=== PATIENT | male | born 1960 | race Caucasian/White ===

== ENCOUNTER → 2016-07-20 | Outpatient (CLI) | payer BC ==
[~2016-07-20] MED LIST: /LINE60TA OR; /MUPINAS; ACET-654 PO; ACET50TA PO; BIMA01SOL OU; CEFT500T OR; COLA100C2 OR; CYMBALTA PO; DICY10CA PO; DOXY100T OR; EMLA2.5C TOP; FISHCAP PO; GABA-279 PO; GABA300C2 PO; GABA300C3 PO; GABAPENTIN PO; HYDR-3713 PO; IBUP600T PO; IBUP800T OR; IBUPPOW25 PO; JANU100T PO; LANTUS SC; LIDO5DIS EX; LYRI150C OR; METO10TA2 PO; MULTIVIT PO; MUPI2OI TOP; NEUR100C PO; NEUR600T PO; NORT10SO PO; No Historical Meds; OMEP20TA7 OR; OXYC10TA97 OR; PENN1.5S2 TOP; PERC5TAB6 PO; PERC5TAB8 PO; RIFA300C3 PO; TRAM50TA2 OR; TYLE500T53 OR; TYLE650T30 PO; VICO5TAB OR; ZONE25CA5 PO
--- NOTE | 2016-07-21 03:16 | REP ---
Clinical: Primary osteoarthritis with hip pain. Technique: Neutral and frog lateral views of the right hip. Comparison: 07/18/2014. Findings: Findings include joint space narrowing with increase sclerosis the acetabulum and subtle spurring along the acetabular rim. Cortical irregularity is also identified involving the greater trochanter. The femoral head and neck cortex appears relatively smooth and normal. No abnormal erosions appreciated. No subchondral cystic changes are appreciated or periarticular calcifications are identified. Impression: Mild arthritic changes by radiographic evaluation similar to prior examination. Signed by Lawrence Munguia MD 07/21/2016 03:08 A
== END ==
LOC: M CLY 11:17
PROVIDERS: ATTEND Family Medicine
DX: M16.11 Unilateral primary osteoarthritis, right hip (principal)

== ENCOUNTER → 2016-09-29 | Outpatient (CLI) | payer BC ==
[~2016-09-29] MED LIST changes: +GABA-282 PO; -GABA300C3 PO
--- NOTE | 2016-10-04 01:56 | ECWPNPC ---
PATIENT NAME: KHANH GEORGE : 1960 GENDER: MALE VISIT DATE: 09/29/2016 DISCHARGE DATE: 09/29/16 1117 VISIT LOCKED DATE TIME: PHYSICIAN: CRISTAL KOWALSKI PHYSICIAN PAGER NO: [phone] RESOURCE: CRISTAL KOWALSKI REASON FOR APPOINTMENT 1. FEET, KNEES HISTORY OF PRESENT ILLNESS HISTORY OF PRESENT ILLNESS: PAIN THE PATIENT DESCRIBES THE PAIN... FALL RISK SCREENING: SCREENING :NO FALLS IN THE PAST YEAR TODAY'S VISIT: NOTES: IS HAVING INCREASED PAIN IN RIGHT HIP. HAS SEEN DR GRAHAM AT [facility] AND ALSO DR. HUERTA WHO DID START HIM IN PT WHICH HE COULD NOT DO THIS INCREASED THE PAIN. DCS WORKING WELL AND LE NEUROPATHY IS UNDER CONTROL. THEY ARE NOT ABLE TO CAPTURE THE HIP WITH THE STIMULATOR. RATES PAIN TODAY 4/10. DESCRIBES PAIN ACHING. PAIN IS CENTERED IN RIGHT BUTTUCK, HIP AND KNEE . CURRENT MEDICATIONS TAKING BACTROBAN 2 % CREAM 1 APPLICATION TO AFFECTED AREA EXTERNALLY THREE TIMES A DAY TAKING HIBICLENS 4 % LIQUID TOPICAL EXTERNALLY DAILY TAKING LUMIGAN 0.01 % SOLUTION INSTILL 1 DROP IN EACH EYE AT NIGHT TIME OPHTHALMIC TAKING HYDROCHLOROTHIAZIDE 25 MG TABLET 1 TABLET ORALLY Q 3 DAYS TAKING TRAMADOL HCL 50 MG TABLET 1 -2 TABLET NEEDED ORALLY Q4H PRN MDD6 TAKING MOTRIN IB 200 MG TABLET 3 TABS ORALLY EVERY 6 HRS PRN TAKING TANZEUM 30 MG PEN-INJECTOR 1 INJECTION SUBCUTANEOUS WEEKLY TAKING ONETOUCH ULTRA II TEST STRIPS STRIP DIRECTED IN VITRO TWICE DAILY TAKING LANTUS SOLOSTAR 100 UNIT/ML SOLUTION 66 UNITS SUBCUTANEOUS BEDTIME TAKING LANTUS SOLO STAR PEN NEEDLES 4MM NEEDLES 32 G 1 SUBCUTANEOUS ONCE A DAY TAKING PERCOCET 325-7.5 MG TABLET 1 TABLET ORALLY EVERY 4 HRS PRN PAIN MDD=6 TAKING LIDOCAINE 5 % OINTMENT 1 APPLICATION TO AFFECTED AREA NEEDED EXTERNALLY APPLY Q 4-6 HRS PRN PAIN APPLY TO PAINFUL AREA OF FEET/KNEE TAKING ICY HOT 5 % PAD 1 PAD TO AFFECTED AREA NEEDED EXTERNALLY ONCE A DAY NOT-TAKING RANITIDINE HCL 150 MG TABLET 1 TABLET AT BEDTIME ORALLY BID NOT-TAKING LIDOCAINE 4 % CREAM DIRECTED EXTERNALLY APPLY TO BOTH FEET/KNEE NEEDED DISCONTINUED BACTRIM DS 800-160 MG TABLET 1 TABLET ORALLY TWICE A DAY MEDICATION LIST REVIEWED AND RECONCILED WITH THE PATIENT PAST MEDICAL HISTORY DIABETES MELLITUS KIDNEY STONES GLAUCOMA PNEUMONIA SHOT GIVEN 05-03-2011 WHILE INPATIENT @ [facility] 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 NO . CHILLS NO . FEVER NO . INFECTION: DO YOU HAVE NEW INFECTIONS? NO . DO YOU HAVE HISTORY OF MRSA? YES, SIX YRS AGO IN HIS KIDNEY, SINCE HAS HAD IT ON HEAD AND FACE. NONE NOW . MUSCULOSKELETAL: ANY NEW PATTERNS OF PAIN OR NUMBNESS? NO . GASTROENTEROLOGY: ANY NEW CHANGE IN BOWEL CONTROL? NO . GENITOURINARY: ANY NEW CHANGE IN BLADDER CONTROL? NO . IS THERE A CHANCE YOU COULD BE ? NO . HEMATOLOGY/LYMPH: DO YOU TAKE ANY BLOOD THINNERS? (FOR EXAMPLE- COUMADIN, PLAVIX, AGGRENOX, PLATEL, PRADAXA, OR XARELTO) NO . WHEN WAS YOUR LAST DOSE? DATE: TIME: . NEUROLOGY: HAVE YOU FALLEN IN THE PAST 6 MONTHS? YES, APPROX MID JUL. HIP GAVE OUT WHILE HE WAS WALKING--SAW DR. FIGUEROA THE NEXT DAY. BRUISES AND ABRASION . ANY NEW EXTREMITY NUMBNESS OR WEAKNESS? NO . CARDIOLOGY: DO YOU HAVE A PACEMAKER OR DEFIBRILLATOR? NO . RESPIRATORY: HAVE YOU BEEN SICK IN THE PAST WEEK? NO . FEVER NO . FLU LIKE SYMPTOMS? NO . COUGH NO . INTEGUMENTARY: DO YOU HAVE ANY RASHES OR OPEN SORES? NO . ALLERGIC/IMMUNO: ARE YOU ALLERGIC TO SHELLFISH OR IV DYE? NO . ANY NEW ALLERGIES? NO . PSYCHIATRIC: DO YOU HAVE THOUGHTS OF HURTING YOURSELF OR SOMEONE ELSE? NO . ARE YOU ABUSED, NEGLECTED, OR IN AN UNSAFE ENVIRONMENT? NO . ENDOCRINOLOGY: ARE YOU DIABETIC? YES, FSBS 115 09/28/16 . OTHER: DO YOU NEED ANY PRESCRIPTIONS? YES . IF YES, PLEASE LIST: ____TRAMADOL . ANY NEW PROBLEMS WITH YOUR MEDICATIONS? NO . WHEN DID YOU LAST EAT? ____ . WHEN DID YOU LAST DRINK? ____ . WHAT DID YOU LAST DRINK? ____ . NAME OF PERSON DRIVING YOU HOME? ____ . DO YOU HAVE ANY OTHER QUESTIONS OR CONCERNS ARTHRITIS IS WORSE IN RIGHT HIM AND HE NEEDS A TOTAL HIP DONE. WOULD LIKE TO DISCUSS LIDODERM PATCH . SKIN: DO YOU HAVE ANY RASHES OR OPEN SORES? NO MRSA OUTBREAKS IN THE LAST SEVERAL MONTHS. IS USING REGULAR APPLICATIONS OF PHISODERM. . REVIEWED BY: PROVIDER: CRISTAL PEREZ . VITAL SIGNS WT 292.6 LBS, HT 6'1", BMI 38.60 INDEX, BP 158/81 MM HG, HR 82 /MIN, RR 18 /MIN, TEMP 97.1 F, OXYGEN SAT % 97%, NA INITIALS SC 10:44, REVIEWED BY: AD. EXAMINATION GENERAL EXAMINATION: PSYCHALERT , ORIENTED X 3 , APPROPRIATE MOOD AND AFFECT . FACE:FACIAL LESIONS DRY, HEALED. LUNGS:CLEAR TO AUSCULTATION BILATERALLY. HEART:HEART RATE REGULAR. MUSCULOSKELETAL:CAN FLEX BOTH FEET AND TOES. GAIT STEPPING IN NATURE. MINIMAL TENDERNESS WITH PALPATION OVER RIGHT KNEE. POINT TENDERNESS OVER THE RIGHT TROCANTER AND SACRUM.. ASSESSMENTS TYPE 2 DIABETES MELLITUS WITH DIABETIC POLYNEUROPATHY - E11.42 (PRIMARY) PRIMARY OSTEOARTHRITIS OF RIGHT HIP - M16.11 TREATMENT TYPE 2 DIABETES MELLITUS WITH DIABETIC POLYNEUROPATHY REFILL TRAMADOL HCL TABLET, 50 MG, 1 -2 TABLET NEEDED, ORALLY, Q4H PRN MDD6, 30 DAY(S), 180, REFILLS 3 START LIDOCAINE PATCH, 5 %, DIRECTED, EXTERNALLY, APPLEY 2 PATCHES TO HIP OR BACK ON 12 HOURS OFF 12 HOURS, 30 DAY(S), 60, REFILLS 2 CLINICAL NOTES: ISTOP REGISTRY REVIEWED AND DEMNOSTRATES COMPLLIANCE. BRINGS IN MEDICATIONS WHICH IS APPROPRIATE FOR WHAT WAS DISPENSED. RECENT URINE TOXICOLOGY REVIEWED. NO UNAUTHORIZED MEDICATIONS. NO ILLICIT SUBSTANCES AND PRESCRIBED MEDICATIONS WERE PRESENT. PROCEDURE CODES FA211 ESTABILISHED PATIENT [facility] CHARGE DISPOSITION & COMMUNICATION FOLLOW UP 3 MONTHS ELECTRONICALLY SIGNED BY CARLO HA ON 10/03/2016 AT 01:38 PM EDT DISCLAIMER : THIS IS A VISIT SUMMARY EXTRACTED FROM THE [employer] CHART. IT IS NOT A COPY OF THE [employer] PROGRESS NOTE. MTDD
== END ==
LOC: M PAIN 10:20
PROVIDERS: ATTEND Nurse Practitioner Family
DX: E11.42 Type 2 diabetes mellitus with diabetic polyneuropathy (principal); M16.11 Unilateral primary osteoarthritis, right hip; Z79.891 Long term (current) use of opiate analgesic; Z79.899 Other long term (current) drug therapy; Z79.2 Long term (current) use of antibiotics; Z79.4 Long term (current) use of insulin; I10 Essential (primary) hypertension; Z86.14 Personal history of Methicillin resistant Staphylococcus aureus infection; Z88.8 Allergy status to other drugs, medicaments and biological substances; Z88.5 Allergy status to narcotic agent

== ENCOUNTER → 2016-10-20 | Outpatient (REF) | payer BC ==
[2016-10-20 18:07] LABS: ALBUMIN 3.7 GM/DL (3.2-5.2); ALBUMIN/GLOBULIN RATIO 0.97 (1.00-1.93); ALKALINE PHOSPHATASE 94 U/L (45-117); ALT/SGPT 68 U/L (12-78); ANION GAP 5 MEQ/L (8-16); AST/SGOT 70 U/L (15-37); BILIRUBIN,TOTAL 0.5 MG/DL (0.2-1.0); BLOOD UREA NITROGEN 14 MG/DL (7-18); CARBON DIOXIDE LEVEL 31 MEQ/L (21-32); CHLORIDE LEVEL 103 MEQ/L (98-107); CHOLESTEROL LEVEL 143 MG/DL (<200); CREATININE FOR GFR 0.97 MG/DL (0.70-1.30); GLOMERULAR FILTRATION RATE > 60.0 (>56); GLUCOSE, FASTING 146 MG/DL (70-105); POTASSIUM SERUM 4.6 MEQ/L (3.5-5.1); SODIUM LEVEL 139 MEQ/L (136-145); TOTAL PROTEIN 7.5 GM/DL (6.4-8.2); TRIGLYCERIDES LEVEL 190 MG/DL (<150)
== END ==
LOC: M SFHCCLAY 10:28
PROVIDERS: ATTEND Family Medicine
DX: E11.42 Type 2 diabetes mellitus with diabetic polyneuropathy (principal)

== ENCOUNTER → 2016-11-09 | Outpatient (CLI) | payer BC ==
--- NOTE | 2016-11-30 00:48 | ECWPNPC ---
PATIENT NAME: KHANH GEORGE : 1960 GENDER: MALE VISIT DATE: 11/09/2016 DISCHARGE DATE: 11/09/16 1236 VISIT LOCKED DATE TIME: PHYSICIAN: CRISTAL KOWALSKI PHYSICIAN PAGER NO: [phone] RESOURCE: CRISTAL KOWALSKI REASON FOR APPOINTMENT 1. MEDS HISTORY OF PRESENT ILLNESS HISTORY OF PRESENT ILLNESS: PAIN THE PATIENT DESCRIBES THE PAIN... FALL RISK SCREENING: SCREENING :NO FALLS IN THE PAST YEAR TODAY'S VISIT: NOTES: RATES PAIN TODAY 7/10. DESCRIBES PAIN CONSTANT, ACHING, BURNING AND SHARP. HAD FALL YESTERDAY IN LIVING ROOM - STOOD UP AND "NOTHING WORKED" . NOTES INTENSE PAIN IN HIP WHEN MOVING TO STANDING POSITION. IS CURRENTLY IN PHYSICAL THERAPY AND IS FOLLOWING UP WITH DR CASTRO AT [facility]. 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 NOTES NEUROPATHY IS DOING "GREAT" AND STIM DOING WELL. . CURRENT MEDICATIONS TAKING BACTROBAN 2 % CREAM 1 APPLICATION TO AFFECTED AREA EXTERNALLY THREE TIMES A DAY TAKING HYDROCHLOROTHIAZIDE 25 MG TABLET 1 TABLET ORALLY Q 3 DAYS TAKING TANZEUM 30 MG PEN-INJECTOR 1 INJECTION SUBCUTANEOUS WEEKLY TAKING [employer] ULTRA II TEST STRIPS STRIP DIRECTED IN VITRO TWICE DAILY TAKING LANTUS SOLOSTAR 100 UNIT/ML SOLUTION 68 UNITS SUBCUTANEOUS BEDTIME TAKING LANTUS SOLO STAR PEN NEEDLES 4MM NEEDLES 32 G 1 SUBCUTANEOUS ONCE A DAY TAKING LIDOCAINE 5 % OINTMENT 1 APPLICATION TO AFFECTED AREA NEEDED EXTERNALLY APPLY Q 4-6 HRS PRN PAIN APPLY TO PAINFUL AREA OF FEET/KNEE TAKING ICY HOT 5 % PAD 1 PAD TO AFFECTED AREA NEEDED EXTERNALLY ONCE A DAY TAKING TRAMADOL HCL 50 MG TABLET 1 -2 TABLET NEEDED ORALLY Q4H PRN MDD6 TAKING HIBICLENS 4 % LIQUID TOPICAL EXTERNALLY DAILY TAKING LUMIGAN 0.01 % SOLUTION INSTILL 1 DROP IN EACH EYE AT NIGHT TIME OPHTHALMIC TAKING MOTRIN IB 200 MG TABLET 3 TABS ORALLY EVERY 6 HRS PRN TAKING PERCOCET 325-7.5 MG TABLET 1 TABLET ORALLY EVERY 4 HRS PRN PAIN MDD=6 TAKING LIDOCAINE 5 % PATCH DIRECTED EXTERNALLY APPLEY 2 PATCHES TO HIP OR BACK ON 12 HOURS OFF 12 HOURS TAKING [employer] ULTRA 2 W/DEVICE KIT DIRECTED NOT-TAKING BACTRIM DS 800-160 TABLET 1 TABLET ORALLY TWICE A DAY UNKNOWN RANITIDINE HCL 150 MG TABLET 1 TABLET AT BEDTIME ORALLY BID UNKNOWN LIDOCAINE 4 % CREAM DIRECTED EXTERNALLY APPLY TO BOTH FEET/KNEE NEEDED MEDICATION LIST REVIEWED AND RECONCILED WITH THE PATIENT PAST MEDICAL HISTORY DIABETES MELLITUS KIDNEY STONES GLAUCOMA PNEUMONIA SHOT GIVEN 05-03-2011 WHILE INPATIENT @ [facility] 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 YES, NEEDS RIGHT HIP REPLACEMENT-YET TO BE SCHEDULED . CHILLS NO . FEVER NO . INFECTION: DO YOU HAVE NEW INFECTIONS? NO . DO YOU HAVE HISTORY OF MRSA? YES, X 6 YEARS ON FACE AND NECK . MUSCULOSKELETAL: ANY NEW PATTERNS OF PAIN OR NUMBNESS? YES, RIGHT HIP--INCREASED PAIN SINCE MON. . GASTROENTEROLOGY: ANY NEW CHANGE IN BOWEL CONTROL? NO . GENITOURINARY: ANY NEW CHANGE IN BLADDER CONTROL? NO . IS THERE A CHANCE YOU COULD BE ? NO . HEMATOLOGY/LYMPH: DO YOU TAKE ANY BLOOD THINNERS? (FOR EXAMPLE- COUMADIN, PLAVIX, AGGRENOX, PLATEL, PRADAXA, OR XARELTO) NO . WHEN WAS YOUR LAST DOSE? DATE: TIME: . NEUROLOGY: HAVE YOU FALLEN IN THE PAST 6 MONTHS? YES, YEST. WENT TO TAKE A STEP AND WENT DOWN. JAMMED RIGHT KNEE ON FLOOR. DID NOT GET SEEN. . ANY NEW EXTREMITY NUMBNESS OR WEAKNESS? NO . CARDIOLOGY: DO YOU HAVE A PACEMAKER OR DEFIBRILLATOR? NO . RESPIRATORY: HAVE YOU BEEN SICK IN THE PAST WEEK? NO . FEVER NO . FLU LIKE SYMPTOMS? NO . COUGH NO . INTEGUMENTARY: DO YOU HAVE ANY RASHES OR OPEN SORES? YES, RASH ON BACK OF NECK RIGHT SIDE - OUTBREAK OF MRSA WITH DRAINAGE . ALLERGIC/IMMUNO: ARE YOU ALLERGIC TO SHELLFISH OR IV DYE? NO . ANY NEW ALLERGIES? NO . PSYCHIATRIC: DO YOU HAVE THOUGHTS OF HURTING YOURSELF OR SOMEONE ELSE? NO . ARE YOU ABUSED, NEGLECTED, OR IN AN UNSAFE ENVIRONMENT? NO . ENDOCRINOLOGY: ARE YOU DIABETIC? YES . OTHER: DO YOU NEED ANY PRESCRIPTIONS? YES, PERCOCET . IF YES, PLEASE LIST: ____ . ANY NEW PROBLEMS WITH YOUR MEDICATIONS? NO . WHEN DID YOU LAST EAT? ____ . WHEN DID YOU LAST DRINK? ____ . WHAT DID YOU LAST DRINK? ____ . NAME OF PERSON DRIVING YOU HOME? ____ . DO YOU HAVE ANY OTHER QUESTIONS OR CONCERNS NO . REVIEWED BY: PROVIDER: CRISTAL PEREZ . VITAL SIGNS WT 293.6 LBS, HT 6'1", BMI 38.73 INDEX, BP 137/96 MM HG, HR 90 /MIN, RR 18 /MIN, TEMP 96.9 F, OXYGEN SAT % 96%, NA INITIALS TL 1151, REVIEWED BY: AD. EXAMINATION GENERAL EXAMINATION: GENERAL APPEARANCE:APPEARS EXTREMELY UNCOMFORTABLE WHEN MOVING TO STANDING POSITION OR WITH ATTEMPT TO WALK. PSYCHAPPROPRIATE MOOD AND AFFECT . NECK:NO LYMPHADENOPATHY, SUPPLE, NO THYROMEGALLY, NO JVD OR BRUITS. LUNGS:CLEAR TO AUSCULTATION BILATERALLY, NO WHEEZES, RHONCHI, RALES. HEART:NO MURMURS, REGULAR RATE AND RHYTHM. BACK:DORSAL COLMN STIM INCISIONS OVER LUMBAR SPINE AND FLANK, CLEAN, DRY, NONTENDER. JOINTS:BILATERAL, KNEE , PAIN , SWELLING . ASSESSMENTS KNEE PAIN, RIGHT - M25.561 (PRIMARY) NEUROPATHY - G62.9 CHRONIC PRESCRIPTION OPIATE USE - Z79.899 HIP PAIN, RIGHT - M25.551 TREATMENT KNEE PAIN, RIGHT NOTES: WILL CONSIDER INCREASE ON OXYCODONE TO 10/325 FOR SHORT PERIOD WHILE AWAITING HIP SURGERY. CALL WHEN SCRIPTS NEEDED. CLINICAL NOTES: ISTOP REGISTRY REVIEWED AND DEMNOSTRATES COMPLLIANCE. BRINGS IN MEDICATIONS WHICH IS APPROPRIATE FOR WHAT WAS DISPENSED. RECENT URINE TOXICOLOGY REVIEWED. NO UNAUTHORIZED MEDICATIONS. NO ILLICIT SUBSTANCES AND PRESCRIBED MEDICATIONS WERE PRESENT. PROCEDURE CODES FA211 ESTABILISHED PATIENT [facility] CHARGE DISPOSITION & COMMUNICATION FOLLOW UP 2 MONTHS ELECTRONICALLY SIGNED BY CARLO HA ON 11/29/2016 AT 08:40 AM EDT DISCLAIMER : THIS IS A VISIT SUMMARY EXTRACTED FROM THE [employer] CHART. IT IS NOT A COPY OF THE [employer] PROGRESS NOTE. EVAN
== END ==
LOC: M PAIN 11:40
PROVIDERS: ATTEND Nurse Practitioner Family
DX: G89.29 Other chronic pain (principal); M25.561 Pain in right knee; G62.9 Polyneuropathy, unspecified; M25.551 Pain in right hip; E11.42 Type 2 diabetes mellitus with diabetic polyneuropathy; M16.11 Unilateral primary osteoarthritis, right hip; Z79.4 Long term (current) use of insulin; Z79.1 Long term (current) use of non-steroidal anti-inflammatories (NSAID); Z79.891 Long term (current) use of opiate analgesic; Z79.899 Other long term (current) drug therapy; Z88.5 Allergy status to narcotic agent; Z88.8 Allergy status to other drugs, medicaments and biological substances; Z86.14 Personal history of Methicillin resistant Staphylococcus aureus infection

== ENCOUNTER → 2017-01-31 | Outpatient (REF) | payer BC ==
[~2017-01-31] MED LIST changes: +PERC5TAB12 PO; -PERC5TAB6 PO
[2017-01-31 12:45] LABS: ANION GAP 8 MEQ/L (8-16); BLOOD UREA NITROGEN 13 MG/DL (7-18); CALCIUM LEVEL 9.4 MG/DL (8.5-10.1); CARBON DIOXIDE LEVEL 30 MEQ/L (21-32); CHLORIDE LEVEL 105 MEQ/L (98-107); CREATININE FOR GFR 0.85 MG/DL (0.70-1.30); GLOMERULAR FILTRATION RATE > 60.0 (>56); GLUCOSE, FASTING 200 MG/DL (70-105); POTASSIUM SERUM 4.8 MEQ/L (3.5-5.1); SODIUM LEVEL 143 MEQ/L (136-145)
== END ==
LOC: M SFHCCLAY 09:03
PROVIDERS: ATTEND Family Medicine
DX: E11.42 Type 2 diabetes mellitus with diabetic polyneuropathy (principal)

== ENCOUNTER → 2017-02-03 | Outpatient (CLI) | payer BC ==
--- NOTE | 2017-02-24 01:31 | ECWPNPC ---
PATIENT NAME: KHANH GEORGE : 1960 GENDER: MALE VISIT DATE: 02/03/2017 DISCHARGE DATE: 02/03/17 1537 VISIT LOCKED DATE TIME: PHYSICIAN: CRISTAL KOWALSKI PHYSICIAN PAGER NO: [phone] RESOURCE: CRISTAL KOWALSKI REASON FOR APPOINTMENT 1. 3 MONTH F/UP HISTORY OF PRESENT ILLNESS HISTORY OF PRESENT ILLNESS: PAIN THE PATIENT DESCRIBES THE PAIN... FALL RISK SCREENING: SCREENING :NO FALLS IN THE PAST YEAR TODAY'S VISIT: NOTES: RATES PAIN TODAY 5/10. WAS UNABLE TO MOVE FORWARD WITH HIP SURGERY HASD OUTBREAK OF MRSA.MEDS ARE HELPFUL BUT DOES NOT LIKE HOW THEY MAKE HIM FEEL. DCS WORKING WELL. LE NEUROPATHY IS UNDER CONTTROL WITH STIM. DOES NEED LIDO AND COLD WATER BATHS AND THIS HELPS. . CURRENT MEDICATIONS TAKING PERCOCET 10-325 MG TABLET 1 -2 TABLETS ORALLY EVERY 6 HRS PRN PAIN MDD=6 TAKING BACTROBAN 2 % CREAM 1 APPLICATION TO AFFECTED AREA EXTERNALLY THREE TIMES A DAY TAKING HIBICLENS 4 % LIQUID TOPICAL EXTERNALLY DAILY TAKING LUMIGAN 0.01 % SOLUTION INSTILL 1 DROP IN EACH EYE AT NIGHT TIME OPHTHALMIC TAKING MOTRIN IB 200 MG TABLET 3 TABS ORALLY EVERY 6 HRS PRN TAKING LIDOCAINE 5 % OINTMENT 1 APPLICATION TO AFFECTED AREA NEEDED EXTERNALLY APPLY Q 4-6 HRS PRN PAIN APPLY TO PAINFUL AREA OF FEET/KNEE TAKING ICY HOT 5 % PAD 1 PAD TO AFFECTED AREA NEEDED EXTERNALLY ONCE A DAY TAKING TRAMADOL HCL 50 MG TABLET 1 -2 TABLET NEEDED ORALLY Q4H PRN MDD6 TAKING LIDOCAINE 5 % PATCH DIRECTED EXTERNALLY APPLEY 2 PATCHES TO HIP OR BACK ON 12 HOURS OFF 12 HOURS TAKING [employer] Technologies[employer] ULTRA II TEST STRIPS STRIP DIRECTED IN VITRO TWICE DAILY TAKING LANTUS SOLOSTAR 100 UNIT/ML SOLUTION 68 UNITS, QHS, 32 UNITS QAM SUBCUTANEOUS DIRECTED TAKING LANTUS SOLO STAR PEN NEEDLES 4MM NEEDLES 32 G 1 SUBCUTANEOUS DAILY TAKING [employer]ds[employer] TechnologiesTOUCH ULTRA 2 W/DEVICE KIT DIRECTED E11.42 TAKING JANUVIA 100 MG TABLET 1 TABLET ORALLY ONCE A DAY NOT-TAKING HYDROCHLOROTHIAZIDE 25 MG TABLET 1 TABLET ORALLY Q 3 DAYS NOT-TAKING TANZEUM 30 MG PEN-INJECTOR 1 INJECTION SUBCUTANEOUS WEEKLY NOT-TAKING BACTRIM DS 800-160 TABLET 1 TABLET ORALLY TWICE A DAY UNKNOWN RANITIDINE HCL 150 MG TABLET 1 TABLET AT BEDTIME ORALLY BID MEDICATION LIST REVIEWED AND RECONCILED WITH THE PATIENT PAST MEDICAL HISTORY DIABETES MELLITUS KIDNEY STONES GLAUCOMA PNEUMONIA SHOT GIVEN 05-03-2011 WHILE INPATIENT @ [facility] 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 NEED FOR PROPHYLACTIC VACCINATION AND INOCULATION, INFLUENZA ERECTILE DYSFUNCTION / IMPOTENCE KIDNEY STONE GROSS HEMATURIA 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 ATYPICAL CHEST PAIN ABDOMINAL PAIN DIABETIC TOE ULCER OSTEOARTHRITIS OF HIP OSTEOARTHRITIS OF RIGHT HIP MRSA COLONIZATION FURUNCULOSIS DRY MOUTH SIDE EFFECT WITH INVOKANA CHILDHOOD POLIO AGE APPROX 18 MOS ALLERGIES MORPHINE SULFATE: NAUSEA/VOMITING: SIDE EFFECTS METFORMIN: HICCUPS: SIDE EFFECTS SOCIAL HISTORY GENERAL: TOBACCO USE ARE YOU A:NONSMOKER NEVER SMOKER ADDITIONAL FINDINGS: TOBACCO USER NONE ADDITIONAL FINDINGS: TOBACCO NON-USER NO VAPORNO E-CIGARETTENO LUNG CANCER SCREENING SMOKING STATUS:NON SMOKER BMI CARE GOAL FOLLOW-UP ABOVE NORMAL BMI FOLLOW-UPDIETARY MANAGEMENT EDUCATION, GUIDANCE, AND COUNSELING ALCOHOL SCREENING DID YOU HAVE A DRINK CONTAINING ALCOHOL IN THE PAST YEAR?YES HOW OFTEN DID YOU HAVE SIX OR MORE DRINKS ON ONE OCCASION IN THE PAST YEAR?NEVER (0 POINTS) HOW MANY DRINKS DID YOU HAVE ON A TYPICAL DAY WHEN YOU WERE DRINKING IN THE PAST YEAR?1 OR 2 (0 POINTS) HOW OFTEN DID YOU HAVE A DRINK CONTAINING ALCOHOL IN THE PAST YEAR?MONTHLY OR LESS (1 POINT) POINTS1 INTERPRETATIONNEGATIVE RECREATIONAL DRUG USE DRUG USE?NO CAFFEINE CAFFEINE USE?YES SEXUAL HX HAD SEX IN THE LAST 12 MONTHS (VAGINAL, ORAL, OR ANAL)?YES WITHWOMEN ONLY PREVENTION STRATEGIES DISCUSSED:OTHER USE PROTECTION?NO HAVE YOU EVER HAD AN STD?NO HIV / HEP-C SCREENING HIV TEST OFFERED TO PATIENT:YES DATE OFFERED:01/31/2017 TEST ACCEPTED:NO HEP-C TEST OFFERED TO PATIENT:YES DATE OFFERED:01/31/2017 REASON:PATIENT DECLINED TEST ACCEPTED:NO REASON:PATIENT DECLINED TESTED 2013 OCCUPATION: [employer] . DIET: CARBOHYDRATE CONTROLLED. MARITAL STATUS: . LANGUAGE LUXEMBOURGISH. LEARNING BARRIERS / SPECIAL NEEDS CHANGE FROM LAST VISIT?NO 01/31/2017 BARRIERS TO LEARNING?NO HEARING IMPAIRED?NO VISION IMPAIRED?YES COGNITIVELY IMPAIRED?NO :CORRECTIVE LENSES READING READINESS TO LEARN?YES LEARNING PREFERENCES?NO LEARNING CAPABILITIES PRESENT?YES EMOTIONAL BARRIERS?NO SPECIAL DEVICES?NO DIRECTOR STRATEGIC PLANNING NEEDED?NO NEW PATIENT PAIN DIARY TODAY'S VISIT NOTES, FROM 0-10, WHAT LEVEL IS YOUR PAIN TODAY? 0. PAIN CLINIC PFS, CLERGY, PUBLIC HEALTH REFERRALS PFS REFERRAL NEEDED?NO CLERGY REFERRAL NEEDED?NO PUBLIC HEALTH REFERRAL NEEDED?NO HAS THE PATIENT BEEN EDUCATED REGARDING HIS/HER PLAN OF CARE?YES HAS THE PATIENT BEEN EDUCATED REGARDING PAIN, THE RISK FOR PAIN, THE IMPORTANCE OF EFFECTIVE PAIN MANAGEMENT, AND THE PAIN ASSESSMENT PROCESS?YES ADVANCE DIRECTIVES HEALTH CARE PROXY?NO 01/31/2017 INFORMATION GIVEN WOULD YOU LIKE MORE INFORMATION?YES POWER OF EXTRUSION FORMER?NO DO YOU HAVE A DNR?NO WOULD YOU LIKE MORE INFORMATION?NO LIVING WILL?NO WOULD YOU LIKE MORE INFORMATION?NO WOULD YOU LIKE MORE INFORMATION?YES DOMESTIC VIOLENCE NONE. REVIEW OF SYSTEMS REVIEWED BY: PROVIDER: CRISTAL PEREZ . CONSTITUTIONAL: ANY CHANGE IN YOUR MEDICAL CONDITION? YES, BLOOD SUGARS HAVE BEEN HIGH . CHILLS NO . FEVER NO . INFECTION: DO YOU HAVE NEW INFECTIONS? NO . DO YOU HAVE HISTORY OF MRSA? YES . MUSCULOSKELETAL: ANY NEW PATTERNS OF PAIN OR NUMBNESS? NO . GASTROENTEROLOGY: ANY NEW CHANGE IN BOWEL CONTROL? NO . GENITOURINARY: ANY NEW CHANGE IN BLADDER CONTROL? NO . IS THERE A CHANCE YOU COULD BE ? NO . HEMATOLOGY/LYMPH: DO YOU TAKE ANY BLOOD THINNERS? (FOR EXAMPLE- COUMADIN, PLAVIX, AGGRENOX, PLATEL, PRADAXA, OR XARELTO) NO . WHEN WAS YOUR LAST DOSE? DATE: TIME: . NEUROLOGY: HAVE YOU FALLEN IN THE PAST 6 MONTHS? YES . ANY NEW EXTREMITY NUMBNESS OR WEAKNESS? NO . CARDIOLOGY: DO YOU HAVE A PACEMAKER OR DEFIBRILLATOR? NO . RESPIRATORY: HAVE YOU BEEN SICK IN THE PAST WEEK? NO . FEVER NO . FLU LIKE SYMPTOMS? NO . COUGH NO . INTEGUMENTARY: DO YOU HAVE ANY RASHES OR OPEN SORES? NO . ALLERGIC/IMMUNO: ARE YOU ALLERGIC TO SHELLFISH OR IV DYE? NO . ANY NEW ALLERGIES? NO . PSYCHIATRIC: DO YOU HAVE THOUGHTS OF HURTING YOURSELF OR SOMEONE ELSE? NO . ARE YOU ABUSED, NEGLECTED, OR IN AN UNSAFE ENVIRONMENT? NO . ENDOCRINOLOGY: ARE YOU DIABETIC? YES NOT UNDER CONTROL . OTHER: DO YOU NEED ANY PRESCRIPTIONS? YES . IF YES, PLEASE LIST: PERCOCET . ANY NEW PROBLEMS WITH YOUR MEDICATIONS? NO . WHEN DID YOU LAST EAT? ____ . WHEN DID YOU LAST DRINK? ____ . WHAT DID YOU LAST DRINK? ____ . NAME OF PERSON DRIVING YOU HOME? ____ . DO YOU HAVE ANY OTHER QUESTIONS OR CONCERNS NO . VITAL SIGNS WT 294.6 LBS, HT 6'1", BMI 38.86 INDEX, BP 166/89 MM HG, HR 83 /MIN, RR 18 /MIN, TEMP 98.2 F, OXYGEN SAT % 96%, REVIEWED BY: SUZE (DONE AT 1448). EXAMINATION GENERAL EXAMINATION: GENERAL APPEARANCE: UNCOMFORTABLE WHEN MOVING TO STANDING POSITION OR WITH ATTEMPT TO WALK. PSYCHAPPROPRIATE MOOD AND AFFECT . NECK:NO LYMPHADENOPATHY, SUPPLE, NO THYROMEGALLY, NO JVD OR BRUITS. LUNGS:CLEAR TO AUSCULTATION BILATERALLY, NO WHEEZES, RHONCHI, RALES. HEART:NO MURMURS, REGULAR RATE AND RHYTHM. BACK:DORSAL COLMN STIM INCISIONS OVER LUMBAR SPINE AND FLANK, CLEAN, DRY, NONTENDER. JOINTS:BILATERAL, KNEE , PAIN , SWELLING . ASSESSMENTS KNEE PAIN, RIGHT - M25.561 (PRIMARY) NEUROPATHY - G62.9 CHRONIC PRESCRIPTION OPIATE USE - Z79.899 HIP PAIN, RIGHT - M25.551 TREATMENT KNEE PAIN, RIGHT REFILL PERCOCET TABLET, 10-325 MG, 1 -2 TABLETS, ORALLY, EVERY 6 HRS PRN PAIN MDD=6, 30 DAY(S), 180, REFILLS 0 NOTES: UTOX TODAY. CLINICAL NOTES: ISTOP REGISTRY REVIEWED AND DEMNOSTRATES COMPLLIANCE. BRINGS IN MEDICATIONS WHICH IS APPROPRIATE FOR WHAT WAS DISPENSED. RECENT URINE TOXICOLOGY REVIEWED. NO UNAUTHORIZED MEDICATIONS. NO ILLICIT SUBSTANCES AND PRESCRIBED MEDICATIONS WERE PRESENT. PROCEDURE CODES FA211 ESTABILISHED PATIENT [facility] CHARGE DISPOSITION & COMMUNICATION FOLLOW UP 3 MONTHS (REASON: HIP/LEG PAIN) ELECTRONICALLY SIGNED BY CARLO HA ON 02/23/2017 AT 08:36 AM EDT DISCLAIMER : THIS IS A VISIT SUMMARY EXTRACTED FROM THE [employer] CHART. IT IS NOT A COPY OF THE [employer] PROGRESS NOTE. EVAN
== END ==
LOC: M PAIN 14:40
PROVIDERS: ATTEND Nurse Practitioner Family
DX: M25.561 Pain in right knee (principal); G62.9 Polyneuropathy, unspecified; M25.551 Pain in right hip; E11.42 Type 2 diabetes mellitus with diabetic polyneuropathy; M16.11 Unilateral primary osteoarthritis, right hip; I10 Essential (primary) hypertension; Z79.891 Long term (current) use of opiate analgesic; Z79.899 Other long term (current) drug therapy; Z79.4 Long term (current) use of insulin; Z79.84 Long term (current) use of oral hypoglycemic drugs; Z88.2 Allergy status to sulfonamides; Z88.8 Allergy status to other drugs, medicaments and biological substances; Z87.442 Personal history of urinary calculi; Z22.322 Carrier or suspected carrier of Methicillin resistant Staphylococcus aureus

== ENCOUNTER → 2017-06-12 | Outpatient (CLI) | payer BC | LOC: M PAIN 10:15 | DX: G62.9 Polyneuropathy, unspecified (principal); M25.561 Pain in right knee; E11.42 Type 2 diabetes mellitus with diabetic polyneuropathy; M16.11 Unilateral primary osteoarthritis, right hip; Z79.891 Long term (current) use of opiate analgesic; Z79.4 Long term (current) use of insulin; Z79.899 Other long term (current) drug therapy; Z86.14 Personal history of Methicillin resistant Staphylococcus aureus infection | CPT/HCPCS: G0463 ==

== ENCOUNTER → 2017-08-10 | Outpatient (REF) | payer BC ==
[2017-08-10 20:27] LABS: ANION GAP 8 MEQ/L (8-16); BLOOD UREA NITROGEN 13 MG/DL (7-18); CALCIUM LEVEL 8.8 MG/DL (8.5-10.1); CARBON DIOXIDE LEVEL 30 MEQ/L (21-32); CHLORIDE LEVEL 101 MEQ/L (98-107); GLOMERULAR FILTRATION RATE > 60.0 (>56); GLUCOSE, FASTING 241 MG/DL (70-100); POTASSIUM SERUM 4.1 MEQ/L (3.5-5.1); SODIUM LEVEL 139 MEQ/L (136-145)
[2017-08-10 20:28] LABS: ESTIMATED AVERAGE GLUCOSE 214 MG/DL (60-110); HEMOGLOBIN A1c 9.1 %
== END ==
LOC: M SFHCCLAY 19:08
DX: E11.42 Type 2 diabetes mellitus with diabetic polyneuropathy (principal)
CPT/HCPCS: 83036

== ENCOUNTER → 2017-09-21 | Outpatient (CLI) | payer BC | LOC: M PAIN 10:15 | DX: G62.9 Polyneuropathy, unspecified (principal); M25.561 Pain in right knee; G56.03 Carpal tunnel syndrome, bilateral upper limbs; E11.49 Type 2 diabetes mellitus with other diabetic neurological complication; M16.11 Unilateral primary osteoarthritis, right hip; M19.049 Primary osteoarthritis, unspecified hand; Z79.891 Long term (current) use of opiate analgesic; Z79.4 Long term (current) use of insulin; Z79.899 Other long term (current) drug therapy; Z88.5 Allergy status to narcotic agent; Z88.8 Allergy status to other drugs, medicaments and biological substances | CPT/HCPCS: G0463 ==

== ENCOUNTER → 2018-01-19 | Outpatient (CLI) | payer BC | LOC: M PAIN 11:30 | DX: G62.9 Polyneuropathy, unspecified (principal); M25.561 Pain in right knee; E11.42 Type 2 diabetes mellitus with diabetic polyneuropathy; M16.11 Unilateral primary osteoarthritis, right hip; M19.049 Primary osteoarthritis, unspecified hand; E66.01 Morbid (severe) obesity due to excess calories; Z68.39 Body mass index [BMI] 39.0-39.9, adult; Z79.4 Long term (current) use of insulin; Z79.891 Long term (current) use of opiate analgesic; Z79.899 Other long term (current) drug therapy; Z88.5 Allergy status to narcotic agent; Z88.8 Allergy status to other drugs, medicaments and biological substances; Z97.8 Presence of other specified devices | CPT/HCPCS: G0463 ==

== ENCOUNTER → 2018-03-26 | Outpatient (CLI) | payer BC | LOC: M PAIN 10:00 | DX: G62.9 Polyneuropathy, unspecified (principal); M25.561 Pain in right knee; M16.9 Osteoarthritis of hip, unspecified; I10 Essential (primary) hypertension; E11.9 Type 2 diabetes mellitus without complications; Z79.4 Long term (current) use of insulin; Z79.891 Long term (current) use of opiate analgesic; Z79.899 Other long term (current) drug therapy; Z88.8 Allergy status to other drugs, medicaments and biological substances | CPT/HCPCS: G0463 ==

== ENCOUNTER → 2018-04-25 | Outpatient (CLI) | payer BC | LOC: M PAIN 10:30 | DX: G62.9 Polyneuropathy, unspecified (principal); M25.561 Pain in right knee; M16.11 Unilateral primary osteoarthritis, right hip; E11.40 Type 2 diabetes mellitus with diabetic neuropathy, unspecified; E11.49 Type 2 diabetes mellitus with other diabetic neurological complication; M19.049 Primary osteoarthritis, unspecified hand; Z79.4 Long term (current) use of insulin; Z79.899 Other long term (current) drug therapy; Z88.5 Allergy status to narcotic agent; Z88.8 Allergy status to other drugs, medicaments and biological substances | CPT/HCPCS: G0463 ==

== ENCOUNTER → 2018-05-02 | Outpatient (REF) | payer BC | LOC: M SFHCCLAY 15:58 | DX: E11.42 Type 2 diabetes mellitus with diabetic polyneuropathy (principal) ==

== ENCOUNTER → 2018-07-13 | Outpatient (CLI) | payer BC ==
[~2018-07-13] MED LIST changes: +GABA-1171 PO; -GABA-279 PO; -GABA-282 PO; +GABA-843 PO; -ZONE25CA5 PO; +ZONE25CA6 PO
--- NOTE | 2018-08-01 00:48 | ECWPNPC ---
PATIENT NAME: KHANH GEORGE : 1960 GENDER: MALE VISIT DATE: 07/13/2018 DISCHARGE DATE: 07/13/18 1034 VISIT LOCKED DATE TIME: PHYSICIAN: LAURO LÓPEZ MD PHYSICIAN PAGER NO: [phone] RESOURCE: LAURO LÓPEZ MD REASON FOR APPOINTMENT 1. LE NEUROPATHY/DCS/HIP PAIN HISTORY OF PRESENT ILLNESS HISTORY OF PRESENT ILLNESS: PAIN THE PATIENT DESCRIBES THE PAIN... 57 YEAR OLD MALE PATIENT WITH A HISTORY OF CHRONIC PERIPHERAL DIABETIC NEUROPATHY. THE PATIENT DESCRIBES THE PAIN SORE, TENDER, AND CONTINUOUS WITH A PAIN SCORE OF 5-8/10 DEPENDING ON PHYSICAL ACTIVITY. THE PATIENT SAYS HIS PAIN IS MAINLY LOCATED IN HIS RIGHT LEG. THE PATIENT HAS A DCS IMPLANT AND SAYS THAT IT HELPS CONTROL HIS PAIN. THE PATIENT IS CURRENTLY USING PERCOCET, TRAMADOL, IBUPROFEN, AND LIDOCAINE PATCHES TO AID IN PAIN RELIEF. THE PATIENT SAYS THAT THE USE OF THESE MEDICATIONS AND HIS DCS IMPLANT HELP HIM REMAIN MOBILE AND FUNCTIONAL. PATIENT DENIES UNEXPLAINABLE WEIGHT LOSS, FEVER, CHILLS, NEW CHANGES ON HIS URINARY OR BOWEL CONTROL. FALL RISK SCREENING: SCREENING :NO FALLS IN THE PAST YEAR CURRENT MEDICATIONS TAKING [employer] ULTRA 2 W/DEVICE KIT 1 E11.42 TAKING LANTUS SOLOSTAR 100 UNIT/ML SOLUTION 75 UNITS, QHS, 35 UNITS QAM SUBCUTANEOUS DIRECTED TAKING LANTUS SOLO STAR PEN NEEDLES 4MM NEEDLES 32 G 1 SUBCUTANEOUS BID 11.42 TAKING ICY HOT 5 % PAD 1 PAD TO AFFECTED AREA NEEDED EXTERNALLY ONCE A DAY TAKING METRONIDAZOLE 0.75 % LOTION 1 APPLICATION TO AFFECTED AREA EXTERNALLY ON FACE DIRECTED TWICE A DAY TAKING MOTRIN IB 200 MG TABLET 3 - 4 TABS ORALLY EVERY 8 HRS PRN TAKING LUMIGAN 0.01 % SOLUTION INSTILL 1 DROP IN EACH EYE AT NIGHT TIME OPHTHALMIC TAKING HIBICLENS 4 % LIQUID TOPICAL EXTERNALLY DAILY TAKING ONDANSETRON HCL 4 MG TABLET 1-2 TABLETS ORALLY EVERY 4 HOURS NEEDED TAKING DICLOFENAC SODIUM 1 % GEL 2 GM TRANSDERMAL TID, PRN PAIN TAKING BACTROBAN 2 % CREAM 1 APPLICATION TO AFFECTED AREA EXTERNALLY THREE TIMES A DAY TAKING REPAGLINIDE 2 MG TABLET 1 TABLET 15 TO 30 MINUTES BEFORE MEALS ORALLY BEFORE MEALS TAKING JANUVIA 100 MG TABLET 1 TABLET ORALLY ONCE A DAY TAKING PERCOCET 10-325 MG TABLET 1 -2 TABLETS ORALLY EVERY 4 HRS PRN PAIN MDD=6 TAKING LIDOCAINE 5 % OINTMENT 1 APPLICATION TO AFFECTED AREA NEEDED EXTERNALLY APPLY Q 4-6 HRS PRN PAIN APPLY TO PAINFUL AREA OF FEET/KNEE, NOTES: RAN OUT TAKING LIDOCAINE 5 % PATCH DIRECTED EXTERNALLY APPLEY 2 PATCHES TO HIP OR BACK ON 12 HOURS OFF 12 HOURS TAKING TRAMADOL HCL 50 MG TABLET 1 -2 TABLET NEEDED ORALLY Q4H PRN PAIN MDD6 TAKING BACTRIM DS 800-160 MG TABLET 1 TABLET ORALLY TWICE A DAY MEDICATION LIST REVIEWED AND RECONCILED WITH THE PATIENT PAST MEDICAL HISTORY DIABETES MELLITUS KIDNEY STONES GLAUCOMA PNEUMONIA SHOT GIVEN 05-03-2011 WHILE INPATIENT @ [facility] 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 NEED FOR PROPHYLACTIC VACCINATION AND INOCULATION, INFLUENZA ERECTILE DYSFUNCTION / IMPOTENCE KIDNEY STONE GROSS HEMATURIA 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 ATYPICAL CHEST PAIN ABDOMINAL PAIN DIABETIC TOE ULCER OSTEOARTHRITIS OF HIP OSTEOARTHRITIS OF RIGHT HIP MRSA COLONIZATION FURUNCULOSIS DRY MOUTH SIDE EFFECT WITH INVOKANA CHILDHOOD POLIO AGE APPROX 19 MOS ARTHRITIS IN HANDS ALLERGIES MORPHINE SULFATE: NAUSEA/VOMITING: SIDE EFFECTS METFORMIN: HICCUPS: SIDE EFFECTS SURGICAL HISTORY WRIST SURGERY RIGHT KNEE GALLBLADDER 04-22-2014 NEURO STIMULATOR TRAIL 12/2014 NEURO STIMULATOR PLACED 03/2015 FAMILY HISTORY FATHER: , DIAGNOSED WITH DIABETES, CANCER MOTHER: , DIAGNOSED WITH DIABETES, STROKE 2 BROTHER(S) . 1 SON(S) , 1 DAUGHTER(S) . 2 SISTER , FATHER -BLACK LUNG AND KIDNEY CANCER, MOM- STROKESISTER - COMPLICATIONS FROM DM. SOCIAL HISTORY GENERAL: TOBACCO USE ARE YOU A:NONSMOKER NEVER SMOKER ADDITIONAL FINDINGS: TOBACCO USER NONE ADDITIONAL FINDINGS: TOBACCO NON-USER NO VAPORNO E-CIGARETTENO LUNG CANCER SCREENING SMOKING STATUS:NON SMOKER BMI CARE GOAL FOLLOW-UP ABOVE NORMAL BMI FOLLOW-UPDIETARY MANAGEMENT EDUCATION, GUIDANCE, AND COUNSELING ALCOHOL SCREENING DID YOU HAVE A DRINK CONTAINING ALCOHOL IN THE PAST YEAR?YES HOW OFTEN DID YOU HAVE SIX OR MORE DRINKS ON ONE OCCASION IN THE PAST YEAR?NEVER (0 POINTS) HOW MANY DRINKS DID YOU HAVE ON A TYPICAL DAY WHEN YOU WERE DRINKING IN THE PAST YEAR?1 OR 2 (0 POINTS) HOW OFTEN DID YOU HAVE A DRINK CONTAINING ALCOHOL IN THE PAST YEAR?MONTHLY OR LESS (1 POINT) POINTS1 INTERPRETATIONNEGATIVE RECREATIONAL DRUG USE DRUG USE?NO CAFFEINE CAFFEINE USE?YES HOW OFTEN AND HOW MUCH? 1-2 CUPS COFFEE/DAY SEXUAL HX HAD SEX IN THE LAST 12 MONTHS (VAGINAL, ORAL, OR ANAL)?YES WITHWOMEN ONLY PREVENTION STRATEGIES DISCUSSED:OTHER USE PROTECTION?NO HAVE YOU EVER HAD AN STD?NO HIV / HEP-C SCREENING HIV TEST OFFERED TO PATIENT:YES DATE OFFERED:05/02/2018 TEST ACCEPTED:NO HEP-C TEST OFFERED TO PATIENT:YES DATE OFFERED:05/02/2018 REASON:PATIENT DECLINED TEST ACCEPTED:NO REASON:PATIENT DECLINED TESTED 2013 BROCHURE PROVIDED TO PATIENTNO CHRISTIANITY [id number] NONE LANGUAGE FINNISH. 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 DIET: CARBOHYDRATE CONTROLLED. EXERCISE: WALKS. MARITAL STATUS: . OTHERS AT HOME: SPOUSE. NEW PATIENT PAIN DIARY FROM 0-10, WHAT LEVEL IS YOUR PAIN TODAY?4 PAIN CLINIC PFS, CLERGY, PUBLIC HEALTH REFERRALS PFS REFERRAL NEEDED?NO CLERGY REFERRAL NEEDED?NO PUBLIC HEALTH REFERRAL NEEDED?NO WAS THE PROVIDER NOTIFIED OF ANY PERTINENT INFO?YES HAS THE PATIENT BEEN EDUCATED REGARDING HIS/HER PLAN OF CARE?YES HAS THE PATIENT BEEN EDUCATED REGARDING PAIN, THE RISK FOR PAIN, THE IMPORTANCE OF EFFECTIVE PAIN MANAGEMENT, AND THE PAIN ASSESSMENT PROCESS?YES ADVANCE DIRECTIVE ADVANCE DIRECTIVE DISCUSSED WITH PATIENT:YES HCP INFORMATION GIVEN TO PATIENT, PATIENT DECLINED ASSISTANCE WITH FILLING OUT. 07/13/18928 JS REVIEWED WITH PATIENT 07/13/18928 JEAN. HOSPITALIZATION/MAJOR DIAGNOSTIC PROCEDURE ABSCESS AROUND RIGHT KIDNEY 05/2011 COLON BLOCKAGE @ [place] [facility] AUG [id number] [facility] ABDOMINAL PAIN SECONDARY TO MESENTERIC ADENITIS AUG 21 [facility] ER -ABD.PAIN-GALLSTONES 12/21/13 REVIEW OF SYSTEMS REVIEWED BY: PROVIDER: LAURO LÓPEZ MD . CONSTITUTIONAL: ANY CHANGE IN YOUR MEDICAL CONDITION? NO . CHILLS NO . FEVER NO . INFECTION: DO YOU HAVE NEW INFECTIONS? YES, MRSA INFECTION, CURRENTLY ON ANTIBIOTICS . DO YOU HAVE HISTORY OF MRSA? NO . MUSCULOSKELETAL: ANY NEW PATTERNS OF PAIN OR NUMBNESS? YES, STATES NEW PAIN TO LEFT BIG TOE, STARTED APPROX 2 WEEKS AGO . GASTROENTEROLOGY: ANY NEW CHANGE IN BOWEL CONTROL? NO . GENITOURINARY: ANY NEW CHANGE IN BLADDER CONTROL? NO . IS THERE A CHANCE YOU COULD BE ? NO . HEMATOLOGY/LYMPH: DO YOU TAKE ANY BLOOD THINNERS? (FOR EXAMPLE- COUMADIN, PLAVIX, AGGRENOX, PLATEL, PRADAXA, OR XARELTO) NO . WHEN WAS YOUR LAST DOSE? DATE: TIME: . NEUROLOGY: HAVE YOU FALLEN IN THE PAST 12 MONTHS? YES, STATES FALL YESTERDAY, SLIPPED ON ICE, HIT RIGHT HIP PRETTY HARD, INCREASING PAIN. STATES NO ED VISIT, NO IMAGING . ANY NEW EXTREMITY NUMBNESS OR WEAKNESS? NO . CARDIOLOGY: DO YOU HAVE A PACEMAKER OR DEFIBRILLATOR? YES, DCS . RESPIRATORY: HAVE YOU BEEN SICK IN THE PAST WEEK? NO . FEVER NO . FLU LIKE SYMPTOMS? NO . COUGH NO . INTEGUMENTARY: DO YOU HAVE ANY RASHES OR OPEN SORES? YES, STATES OPEN SORES TO HEAD, NECK, AND SHOULDERS DUE TO MRSA INFECTION . ALLERGIC/IMMUNO: ARE YOU ALLERGIC TO IV DYE? NO . ANY NEW ALLERGIES? NO . PSYCHIATRIC: DO YOU HAVE THOUGHTS OF HURTING YOURSELF OR SOMEONE ELSE? NO . ARE YOU ABUSED, NEGLECTED, OR IN AN UNSAFE ENVIRONMENT? NO . ENDOCRINOLOGY: ARE YOU DIABETIC? YES, FSBS 120-130 YESTERDAY MORNING (07/12/18) . OTHER: DO YOU NEED ANY PRESCRIPTIONS? YES . IF YES, PLEASE LIST: ____PERCOCET, TRAMADOL, LIDOCAINE CREAM . ANY NEW PROBLEMS WITH YOUR MEDICATIONS? NO . WHEN DID YOU LAST EAT? ____ . WHEN DID YOU LAST DRINK? ____ . WHAT DID YOU LAST DRINK? ____ . NAME OF PERSON DRIVING YOU HOME? ____ . DO YOU HAVE ANY OTHER QUESTIONS OR CONCERNS NO . VITAL SIGNS WT 287.4 LBS, HT 71 IN, BMI 40.08 INDEX, BP 159/84 MM HG, HR 87 /MIN, RR 18 /MIN, TEMP 97.5 F, OXYGEN SAT % 95%, SAFE IN ENV? (Y/N) YES, NA INITIALS AW 0922, REVIEWED BY: JEAN. EXAMINATION GENERAL EXAMINATION: PATIENT IS ALERT O X 3 AND COOPERATIVE. PATIENT HAS DIFFICULTY STANDING. PATIENT IS LIMPING FROM HIS RIGHT LEG. ASSESSMENTS DIABETIC PERIPHERAL NEUROPATHY - E11.42 (PRIMARY) OSTEOARTHRITIS OF HIP, UNSPECIFIED - M16.9 TYPE 2 DIABETES MELLITUS WITH DIABETIC POLYNEUROPATHY - E11.42 TREATMENT DIABETIC PERIPHERAL NEUROPATHY CLINICAL NOTES: WE DISCUSSED SEVERAL ISSUES WITH MR. GEORGE'S PAIN MANAGEMENT CASE. THE PATIENT WAS REMINDED TO BRING HIS MEDICATIONS TO EVERY VISIT. THE PATIENT WILL CONTINUE WITH THE SAME MEDICATION REGIMENT. ISTOP [id number] WAS REVIEWED. URINE TOXICOLOGY DONE ON 09/21/2017 SHOWS CONCURRENT RESULTS AND WE WILL REPEAT IT TODAY. WE DISCUSSED THE RISKS OF USING NARCOTICS INCLUDING TOLERANCE AND ADDICTION. WE WILL CONSIDER REDUCING THE MEDICATIONS, BUT WE WILL WAIT UNTIL IT IS WARMER OUTSIDE BECAUSE THE COLD WEATHER INCREASES THE PATIENT'S PAIN. THE PATIENT WILL FOLLOW UP IN 2 MONTHS. INSTRUCTIONS WERE GIVEN, QUESTIONS WERE ANSWERED, PATIENT REPORTS UNDERSTANDING AND AGREES WITH THE PLAN. I, JAMES BRIGGS, DOCUMENTED THE ABOVE INFORMATION ACTING A SCRIBE FOR DR. LÓPEZ. I HAVE REVIEWED THE ABOVE DOCUMENT, WRITTEN BY JAMES MENAIBCecelia AND I VERIFY THAT IT IS ACCURATE. OSTEOARTHRITIS OF HIP, UNSPECIFIED REFILL PERCOCET TABLET, 10-325 MG, 1 -2 TABLETS, ORALLY, EVERY 4 HRS PRN PAIN MDD=6, 30 DAY(S), 175, REFILLS 0 CONTINUE TRAMADOL HCL TABLET, 50 MG, 1 -2 TABLET NEEDED, ORALLY, Q4H PRN PAIN MDD6, 30 DAY(S), 120, REFILLS 0 TYPE 2 DIABETES MELLITUS WITH DIABETIC POLYNEUROPATHY CONTINUE LIDOCAINE PATCH, 5 %, DIRECTED, EXTERNALLY, APPLEY 2 PATCHES TO HIP OR BACK ON 12 HOURS OFF 12 HOURS MDD2, 30 DAY(S), 60, REFILLS 1 OTHERS CONTINUE LIDOCAINE OINTMENT, 5 %, 1 APPLICATION TO AFFECTED AREA NEEDED, EXTERNALLY, APPLY Q 4-6 HRS PRN PAIN APPLY TO PAINFUL AREA OF FEET/KNEE, 30 DAY(S), 1, REFILLS 1, NOTES: RAN OUT PROCEDURE CODES FA211 ESTABILISHED PATIENT [facility] FACILITY CHARGE G8427 CURRENT MEDS W/DOSAGES DOCUMENTED G8730 PAIN ASSESS POS TOOL F/U PLAN DOC DISPOSITION & COMMUNICATION FOLLOW UP 2 MONTHS ELECTRONICALLY SIGNED BY LAURO LÓPEZ MD, MD ON 07/31/2018 AT 11:59 AM EST DISCLAIMER : THIS IS A VISIT SUMMARY EXTRACTED FROM THE [employer] CHART. IT IS NOT A COPY OF THE [employer] PROGRESS NOTE. MTDD
== END ==
LOC: M PAIN 09:30
PROVIDERS: ATTEND Anesthesiology
DX: E11.42 Type 2 diabetes mellitus with diabetic polyneuropathy (principal); G89.29 Other chronic pain; M16.11 Unilateral primary osteoarthritis, right hip; M19.041 Primary osteoarthritis, right hand; M19.042 Primary osteoarthritis, left hand; E66.01 Morbid (severe) obesity due to excess calories; Z68.41 Body mass index [BMI] 40.0-44.9, adult; Z79.4 Long term (current) use of insulin; Z79.891 Long term (current) use of opiate analgesic; Z79.899 Other long term (current) drug therapy; Z96.9 Presence of functional implant, unspecified; Z88.5 Allergy status to narcotic agent; Z88.8 Allergy status to other drugs, medicaments and biological substances

== ENCOUNTER → 2018-07-17 | Outpatient (REF) | payer BC | LOC: M SFHCCLAY 16:04 | PROVIDERS: ATTEND Family Medicine | DX: E11.42 Type 2 diabetes mellitus with diabetic polyneuropathy (principal) ==

== ENCOUNTER → 2018-09-11 | Outpatient (CLI) | payer BC ==
--- NOTE | 2018-09-26 01:12 | ECWPNPC ---
PATIENT NAME: KHANH GEORGE : 1960 GENDER: MALE VISIT DATE: 09/11/2018 DISCHARGE DATE: 09/11/18 1602 VISIT LOCKED DATE TIME: PHYSICIAN: LAURO LÓPEZ MD PHYSICIAN PAGER NO: [phone] RESOURCE: LAURO LÓPEZ MD REASON FOR APPOINTMENT 1. NEUROPATHY- KEEP LONG FOR DISCUSSING MEDS HISTORY OF PRESENT ILLNESS HISTORY OF PRESENT ILLNESS: PAIN THE PATIENT DESCRIBES THE PAIN... 57 YEAR OLD MALE PATIENT WITH A HISTORY OF CHRONIC PERIPHERAL DIABETIC NEUROPATHY. THE PATIENT DESCRIBES THE PAIN ACHING, SORE, AND CONTINUOUS WITH A PAIN SCORE OF 3-8/10 DEPENDING ON PHYSICAL ACTIVITY. THE PATIENT IS CURRENTLY USING PERCOCET, TRAMADOL, IBUPROFEN, AND LIDOCAINE PATCHES TO AID IN PAIN RELIEF. THE PATIENT REPORTS THAT THE USE OF THESE MEDICATIONS AND HIS DCS IMPLANT HELP HIM REMAIN MOBILE AND FUNCTIONAL. PATIENT DENIES UNEXPLAINABLE WEIGHT LOSS, FEVER, CHILLS, NEW CHANGES ON HIS URINARY OR BOWEL CONTROL. FALL RISK SCREENING: SCREENING : NO FALLS IN THE PAST YEAR. CURRENT MEDICATIONS TAKING [employer] ULTRA 2 W/DEVICE KIT 1 E11.42 TAKING LANTUS SOLOSTAR 100 UNIT/ML SOLUTION 75 UNITS, QHS, 35 UNITS QAM SUBCUTANEOUS DIRECTED TAKING ICY HOT 5 % PAD 1 PAD TO AFFECTED AREA NEEDED EXTERNALLY ONCE A DAY TAKING METRONIDAZOLE 0.75 % LOTION 1 APPLICATION TO AFFECTED AREA EXTERNALLY ON FACE DIRECTED TWICE A DAY TAKING MOTRIN IB 200 MG TABLET 3 - 4 TABS ORALLY EVERY 8 HRS PRN TAKING LUMIGAN 0.01 % SOLUTION INSTILL 1 DROP IN EACH EYE AT NIGHT TIME OPHTHALMIC TAKING HIBICLENS 4 % LIQUID TOPICAL EXTERNALLY DAILY TAKING ONDANSETRON HCL 4 MG TABLET 1-2 TABLETS ORALLY EVERY 4 HOURS NEEDED TAKING BACTROBAN 2 % CREAM 1 APPLICATION TO AFFECTED AREA EXTERNALLY THREE TIMES A DAY TAKING REPAGLINIDE 2 MG TABLET 1 TABLET 15 TO 30 MINUTES BEFORE MEALS ORALLY BEFORE MEALS TAKING JANUVIA 100 MG TABLET 1 TABLET ORALLY ONCE A DAY TAKING TRAMADOL HCL 50 MG TABLET 1 -2 TABLET NEEDED ORALLY Q4H PRN PAIN MDD6 TAKING LIDOCAINE 5 % PATCH DIRECTED EXTERNALLY APPLEY 2 PATCHES TO HIP OR BACK ON 12 HOURS OFF 12 HOURS MDD2 TAKING LIDOCAINE 5 % OINTMENT 1 APPLICATION TO AFFECTED AREA NEEDED EXTERNALLY APPLY Q 4-6 HRS PRN PAIN APPLY TO PAINFUL AREA OF FEET/KNEE, NOTES: RAN OUT TAKING PERCOCET 10-325 MG TABLET 1 -2 TABLETS ORALLY EVERY 4 HRS PRN PAIN MDD=6 TAKING DICLOFENAC SODIUM 1 % GEL 2 GM TRANSDERMAL TID, PRN PAIN TAKING LANTUS SOLO STAR PEN NEEDLES 4MM NEEDLES 32 G 1 SUBCUTANEOUS BID 11.42 TAKING LANTUS SOLOSTAR 100 UNIT/ML SOLUTION PEN-INJECTOR INJECT 75 UNITS UNDER THE SKIN AT BEDTIME AND 35 UNITS EVERY MORNING DIRECTED MEDICATION LIST REVIEWED AND RECONCILED WITH THE PATIENT PAST MEDICAL HISTORY DIABETES MELLITUS KIDNEY STONES GLAUCOMA PNEUMONIA SHOT GIVEN 05-03-2011 WHILE INPATIENT @ [facility] 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 NEED FOR PROPHYLACTIC VACCINATION AND INOCULATION, INFLUENZA ERECTILE DYSFUNCTION / IMPOTENCE KIDNEY STONE GROSS HEMATURIA 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 ATYPICAL CHEST PAIN ABDOMINAL PAIN DIABETIC TOE ULCER OSTEOARTHRITIS OF HIP OSTEOARTHRITIS OF RIGHT HIP MRSA COLONIZATION FURUNCULOSIS DRY MOUTH SIDE EFFECT WITH INVOKANA CHILDHOOD POLIO AGE APPROX 19 MOS ARTHRITIS IN HANDS AGENT ORANGE EXPOSURE 1981 ALLERGIES MORPHINE SULFATE: NAUSEA/VOMITING - SIDE EFFECTS METFORMIN: HICCUPS - SIDE EFFECTS SURGICAL HISTORY WRIST SURGERY RIGHT KNEE GALLBLADDER 04-22-2014 NEURO STIMULATOR TRAIL 12/2014 NEURO STIMULATOR PLACED 03/2015 FAMILY HISTORY FATHER: , DIAGNOSED WITH CANCER, DIABETES MOTHER: , DIABETES, STROKE 2 BROTHER(S) . 1 SON(S) , 1 DAUGHTER(S) . 2 SISTER , FATHER -BLACK LUNG AND KIDNEY CANCER, MOM- STROKESISTER - COMPLICATIONS FROM DM. SOCIAL HISTORY GENERAL: TOBACCO USE ARE YOU A:NONSMOKER NEVER SMOKER ADDITIONAL FINDINGS: TOBACCO USER NONE ADDITIONAL FINDINGS: TOBACCO NON-USER NO VAPORNO E-CIGARETTENO LATEX QUESTIONNAIRE LATEX ALLERGY : HAVE YOU EVER DEVELOPED ANY TYPE OF REACTION AFTER HANDLING LATEX PRODUCTS SUCH RUBBER GLOVES, CONDOMS, DIAPHRAGMS, BALLOONS, SOCKS, OR UNDERWEAR?NO LATEX ALLERGY : HAVE YOU EVER DEVELOPED ANY TYPE OF REACTION DURING OR AFTER DENTAL APPOINTMENT, VAGINAL/RECTAL EXAMINATION, SURGICAL PROCEDURE, OR ANY OTHER EXPOSURE?NO LATEX RISK : HAVE YOU EVER HAD ANY DIFFICULTY BREATHING OR HIVES AFTER EATING OR HANDLING ANY FRUITS, OR VEGETABLES; SUCH KIWI, BANANAS, STONE FRUITS, OR CHESTNUTSNO LATEX RISK : DO YOU HAVE A PREVIOUS PERSONAL HISTORY OF MORE THAN NINE SURGERIES, SPINA BIFIDA, OR REPEATED CATHERTIZATIONS? NO LATEX RISK : ARE YOU FREQUENTLY EXPOSED TO LATEX PRODUCTS IN YOUR OCCUPATION?NO DATE ASKED : 09/11/2018 LUNG CANCER SCREENING SMOKING STATUS:NON SMOKER BMI CARE GOAL FOLLOW-UP ABOVE NORMAL BMI FOLLOW-UPDIETARY MANAGEMENT EDUCATION, GUIDANCE, AND COUNSELING ALCOHOL SCREENING DID YOU HAVE A DRINK CONTAINING ALCOHOL IN THE PAST YEAR?YES HOW OFTEN DID YOU HAVE SIX OR MORE DRINKS ON ONE OCCASION IN THE PAST YEAR?NEVER (0 POINTS) HOW MANY DRINKS DID YOU HAVE ON A TYPICAL DAY WHEN YOU WERE DRINKING IN THE PAST YEAR?1 OR 2 (0 POINTS) HOW OFTEN DID YOU HAVE A DRINK CONTAINING ALCOHOL IN THE PAST YEAR?MONTHLY OR LESS (1 POINT) POINTS1 INTERPRETATIONNEGATIVE RECREATIONAL DRUG USE DRUG USE?NO CAFFEINE CAFFEINE USE?YES HOW OFTEN AND HOW MUCH? 1-2 CUPS COFFEE/DAY SEXUAL HX HAD SEX IN THE LAST 12 MONTHS (VAGINAL, ORAL, OR ANAL)?YES WITHWOMEN ONLY PREVENTION STRATEGIES DISCUSSED:OTHER USE PROTECTION?NO HAVE YOU EVER HAD AN STD?NO HIV / HEP-C SCREENING HIV TEST OFFERED TO PATIENT:YES DATE OFFERED:07/17/2018 TEST ACCEPTED:NO REASON:PATIENT DECLINED BROCHURE PROVIDED TO PATIENTNO HEP-C TEST OFFERED TO PATIENT:YES DATE OFFERED:07/17/2018 TEST ACCEPTED:NO REASON:PATIENT DECLINED TESTED 2013 ORTHODOXY [id number] NONE LANGUAGE UPPER SORBIAN. 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 DIET: CARBOHYDRATE CONTROLLED. EXERCISE: WALKS. MARITAL STATUS: . OTHERS AT HOME: SPOUSE. NEW PATIENT PAIN DIARY FROM 0-10, WHAT LEVEL IS YOUR PAIN TODAY?4 PAIN CLINIC PFS, CLERGY, PUBLIC HEALTH REFERRALS PFS REFERRAL NEEDED?NO CLERGY REFERRAL NEEDED?NO PUBLIC HEALTH REFERRAL NEEDED?NO WAS THE PROVIDER NOTIFIED OF ANY PERTINENT INFO?YES HAS THE PATIENT BEEN EDUCATED REGARDING HIS/HER PLAN OF CARE?YES HAS THE PATIENT BEEN EDUCATED REGARDING PAIN, THE RISK FOR PAIN, THE IMPORTANCE OF EFFECTIVE PAIN MANAGEMENT, AND THE PAIN ASSESSMENT PROCESS?YES ADVANCE DIRECTIVE ADVANCE DIRECTIVE DISCUSSED WITH PATIENT:YES PATIENT DECLINED ASSISTANCE WITH FILLING OUT REVIEWED WITH PATIENT 07/13/18 2411 JS. HOSPITALIZATION/MAJOR DIAGNOSTIC PROCEDURE ABSCESS AROUND RIGHT KIDNEY 05/2011 COLON BLOCKAGE @ [facility] B -2012 [facility] ABDOMINAL PAIN SECONDARY TO MESENTERIC ADENITIS AUG 21 [facility] ER -ABD.PAIN-GALLSTONES 12/21/13 REVIEW OF SYSTEMS REVIEWED BY: PROVIDER: LAURO LÓPEZ MD . CONSTITUTIONAL: ANY CHANGE IN YOUR MEDICAL CONDITION? NO . CHILLS NO . FEVER NO . INFECTION: DO YOU HAVE NEW INFECTIONS? NO . DO YOU HAVE HISTORY OF MRSA? YES, HX OF MRSA SINCE 2010, FACIAL WOUNDS . MUSCULOSKELETAL: ANY NEW PATTERNS OF PAIN OR NUMBNESS? NO . GASTROENTEROLOGY: ANY NEW CHANGE IN BOWEL CONTROL? NO . GENITOURINARY: ANY NEW CHANGE IN BLADDER CONTROL? NO . IS THERE A CHANCE YOU COULD BE ? NO . HEMATOLOGY/LYMPH: DO YOU TAKE ANY BLOOD THINNERS? (FOR EXAMPLE- COUMADIN, PLAVIX, AGGRENOX, PLATEL, PRADAXA, OR XARELTO) NO . WHEN WAS YOUR LAST DOSE? DATE: TIME: . NEUROLOGY: HAVE YOU FALLEN IN THE PAST 12 MONTHS? YES, PT STATES THAT HE FELL 2 WEEKS AGO WHILE AT HOME, NUMBNESS IN FEET, TRIPPED ON STICK, NO INJURY, NO REPORT TO ED . ANY NEW EXTREMITY NUMBNESS OR WEAKNESS? NO . CARDIOLOGY: DO YOU HAVE A PACEMAKER OR DEFIBRILLATOR? YES, DCS . RESPIRATORY: HAVE YOU BEEN SICK IN THE PAST WEEK? NO . FEVER NO . FLU LIKE SYMPTOMS? NO . COUGH NO . INTEGUMENTARY: DO YOU HAVE ANY RASHES OR OPEN SORES? YES, INTERMITTENT OPEN SORES ON FACE AND BODY, IN VARIOUS STAGES OF HEALING . ALLERGIC/IMMUNO: ARE YOU ALLERGIC TO IV DYE? NO . ANY NEW ALLERGIES? NO . PSYCHIATRIC: DO YOU HAVE THOUGHTS OF HURTING YOURSELF OR SOMEONE ELSE? NO . ARE YOU ABUSED, NEGLECTED, OR IN AN UNSAFE ENVIRONMENT? NO . ENDOCRINOLOGY: ARE YOU DIABETIC? YES, CHECKS FSBS EVERY OTHER DAY, YESTERDAY 118. . OTHER: DO YOU NEED ANY PRESCRIPTIONS? YES, TRAMADOL AND PERCOCET . IF YES, PLEASE LIST: ____ . ANY NEW PROBLEMS WITH YOUR MEDICATIONS? NO . WHEN DID YOU LAST EAT? ____ . WHEN DID YOU LAST DRINK? ____ . WHAT DID YOU LAST DRINK? ____ . NAME OF PERSON DRIVING YOU HOME? ____ . DO YOU HAVE ANY OTHER QUESTIONS OR CONCERNS NO . VITAL SIGNS WT 287 LBS, HT 71 IN, BMI 40.02 INDEX, BP 152/93 MM HG, HR 78 /MIN, RR 18 /MIN, TEMP 97.2 F, OXYGEN SAT % 95%, SAFE IN ENV? (Y/N) Y, NA INITIALS SC 14:53, REVIEWED BY: MARK. EXAMINATION GENERAL EXAMINATION: PATIENT IS ALERT O X 3 AND COOPERATIVE. ASSESSMENTS DIABETIC PERIPHERAL NEUROPATHY - E11.42 (PRIMARY) TREATMENT DIABETIC PERIPHERAL NEUROPATHY CLINICAL NOTES: WE DISCUSSED SEVERAL ISSUES WITH MR. GEORGE'S PAIN MANAGEMENT CASE. THE PATIENT WILL START USING GABAPENTIN AT NIGHT FOR THE NEUROPATHIC PAIN. THE PATIENT WILL REDUCE HIS PERCOCET TO 4-5 TABLETS PER DAY AND HIS TRAMADOL TO 4 TABLETS PER DAY. ISTOP _#[id number] WAS REVIEWED. URINE TOXICOLOGY DONE ON 07/13/2018 SHOWS CONCURRENT RESULTS. I WILL REFER THE PATIENT TO DR. CAMARENA. THE PATIENT WILL FOLLOW UP IN 6 TO 8 WEEKS. INSTRUCTIONS WERE GIVEN, QUESTIONS WERE ANSWERED, PATIENT REPORTS UNDERSTANDING AND AGREES WITH THE PLAN. I, JAMES BRIGGS, DOCUMENTED THE ABOVE INFORMATION ACTING A SCRIBE FOR DR. LÓPEZ. I HAVE REVIEWED THE ABOVE DOCUMENT, WRITTEN BY JAMES BRIGGS SCRIBE AND I VERIFY THAT IT IS ACCURATE. . OTHERS START GABAPENTIN CAPSULE, 100 MG, 1 CAPSULE, ORALLY FOR PAIN, THREE TIMES A DAY MDD3, 30 DAY(S), 90, REFILLS 0 REFILL PERCOCET TABLET, 10-325 MG, 1 -2 TABLETS, ORALLY, EVERY 4 HRS PRN PAIN MDD=5, 30 DAY(S), 140, REFILLS 0 REFILL TRAMADOL HCL TABLET, 50 MG, 1 -2 TABLET NEEDED, ORALLY, Q4H PRN PAIN MDD4, 30 DAY(S), 120, REFILLS 0 PROCEDURE CODES FA211 ESTABILISHED PATIENT [facility] CHARGE G8427 CURRENT MEDS W/DOSAGES DOCUMENTED G8730 PAIN ASSESS POS TOOL F/U PLAN DOC DISPOSITION & COMMUNICATION FOLLOW UP 6-8 WEEKS (REASON: NEUROPATHY) ELECTRONICALLY SIGNED BY LAURO LÓPEZ MD, MD ON 09/24/2018 AT 06:34 PM EDT DISCLAIMER : THIS IS A VISIT SUMMARY EXTRACTED FROM THE [employer] CHART. IT IS NOT A COPY OF THE [employer] PROGRESS NOTE. MTDD
== END ==
LOC: M PAIN 14:45
PROVIDERS: ATTEND Anesthesiology
DX: E11.42 Type 2 diabetes mellitus with diabetic polyneuropathy (principal); Z87.442 Personal history of urinary calculi; H40.9 Unspecified glaucoma; N52.9 Male erectile dysfunction, unspecified; E11.49 Type 2 diabetes mellitus with other diabetic neurological complication; N45.1 Epididymitis; M16.11 Unilateral primary osteoarthritis, right hip; Z86.12 Personal history of poliomyelitis; Z79.4 Long term (current) use of insulin; Z79.891 Long term (current) use of opiate analgesic; Z79.899 Other long term (current) drug therapy; Z90.49 Acquired absence of other specified parts of digestive tract; Z88.5 Allergy status to narcotic agent; Z88.8 Allergy status to other drugs, medicaments and biological substances

== ENCOUNTER → 2018-10-22 | Outpatient (CLI) | payer BC ==
[~2018-10-22] MED LIST changes: -/LINE60TA OR; -/MUPINAS; -ACET50TA PO; +BACT2OIN12; -DICY10CA PO; +DICY1CAP8 PO; +MAPA500T17 PO; +MUPI1OIN2 TOP; -MUPI2OI TOP; +ZYVO100T OR
== END ==
LOC: M PAIN 12:45
PROVIDERS: ATTEND Anesthesiology
DX: E11.42 Type 2 diabetes mellitus with diabetic polyneuropathy (principal); Z53.29 Procedure and treatment not carried out because of patient's decision for other reasons

== ENCOUNTER → 2018-10-24 | Outpatient (REF) | payer BC ==
[2018-10-24 16:59] LABS: BLOOD UREA NITROGEN 17 MG/DL (7-18); CALCIUM LEVEL 9.1 MG/DL (8.5-10.1); CARBON DIOXIDE LEVEL 30 MEQ/L (21-32); CHLORIDE LEVEL 104 MEQ/L (98-107); CHOLESTEROL LEVEL 180 MG/DL (<200); CHOLESTEROL RISK RATIO 4.615 (<5); CREATININE FOR GFR 0.84 MG/DL (0.70-1.30); GLOMERULAR FILTRATION RATE > 60.0 (>56); GLUCOSE, FASTING 197 MG/DL (70-100); HDL CHOLESTEROL 39 MG/DL (>40); LDL CHOLESTEROL 100 MG/DL (<100); NON-HDL-C 141 MG/DL; POTASSIUM SERUM 4.3 MEQ/L (3.5-5.1); SODIUM LEVEL 138 MEQ/L (136-145); TRIGLYCERIDES LEVEL 204 MG/DL (<150)
[2018-10-24 17:11] LABS: HEMOGLOBIN A1c 10.2 %
[2018-10-24 17:24] LABS: MALB URINE SIEMENS 33.8 MG/L; MAU/CREAT RATIO 14.6 MCG/MG (0.0-30.0)
== END ==
LOC: M SFHCCLAY 12:24
PROVIDERS: ATTEND Family Medicine
DX: E11.42 Type 2 diabetes mellitus with diabetic polyneuropathy (principal)

== ENCOUNTER 2018-11-06 22:21 | Emergency (ER) | payer BC ==
[~2018-11-06] VITALS: Ht 188 cm; Wt 128.2 kg
[2018-11-06] MEDS ORDERED: LIDO5DIS41 TD (22:28)
[2018-11-06] MEDS ORDERED: PERCOCET 5MG/325MG TAB PO ONE (23:30)
[2018-11-07] MEDS ORDERED: ACETAMINOPHEN 325 MG TAB PO ONE (00:15)
--- NOTE | 2018-11-07 00:33 | REP ---
Clinical: Nontraumatic pain. Technique: Single view of the pelvis with neutral and frog lateral views of the right hip. Findings: No acute fracture dislocation. Generalized enthesopathy and moderate degenerative changes are noted throughout the visualized lower lumbar spine, pelvis and bilateral hips. Specifically, the right hip demonstrates increase sclerosis and subtle irregularity to the acetabular roof with mild joint space narrowing. No periarticular calcifications or loose bodies are identified. Surrounding soft tissues are normal. Impression: Mild/moderate generalized degenerative changes of the visualized osseous structures including lumbosacral spine, pelvis and hips. Electronically Signed by Lawrence Munguia MD 11/07/2018 12:26 A
[2018-11-07 00:46] LABS: HEMATOCRIT 50.2 % (42.0-52.0); HEMOGLOBIN 16.8 g/dl (13.5-17.5); MEAN CORPUSCULAR HEMOGLOBIN 28.9 pg (27.0-33.0); MEAN CORPUSCULAR HGB CONC 33.5 g/dl (32.0-36.5); MEAN CORPUSCULAR VOLUME 86.4 fl (80.0-96.0); PLATELET COUNT, AUTOMATED 176 10^3/uL (150-450); RED BLOOD COUNT 5.81 10^6/uL (4.30-6.10); WHITE BLOOD COUNT 8.5 10^3/uL (4.0-10.0)
[2018-11-07 01:16] LABS: BLOOD UREA NITROGEN 18 MG/DL (7-18); CALCIUM LEVEL 8.6 MG/DL (8.5-10.1); CARBON DIOXIDE LEVEL 28 MEQ/L (21-32); CHLORIDE LEVEL 104 MEQ/L (98-107); CREATININE FOR GFR 1.09 MG/DL (0.70-1.30); GLOMERULAR FILTRATION RATE > 60.0 (>56); GLUCOSE, FASTING 214 MG/DL (70-100); POTASSIUM SERUM 4.7 MEQ/L (3.5-5.1); SODIUM LEVEL 137 MEQ/L (136-145)
--- NOTE | 2018-11-07 01:24 | REPVR ---
EXAM: CT Right Lower Extremity Without Contrast. Hip EXAM DATE/TIME: 11/07/2018 12:14 AM CLINICAL HISTORY: 58 years old, male; Pain; Hip; Right; Additional info: Pain fever TECHNIQUE: Imaging protocol: CT of the Right lower extremity without contrast was performed. Exam focused on the hip. Radiation optimization: All CT scans at this facility use at least one of these dose optimization techniques: automated exposure control; mA and/or kV adjustment per patient size (includes targeted exams where dose is matched to clinical indication); or iterative reconstruction. COMPARISON: CR Hip,AP,LAT to include Pelvis RIGHT 11/06/2018 11:36 PM FINDINGS: The right hip is not subluxed or dislocated. No acute fracture is seen at the right hip. Enthesopathic changes are noted. Mild osteoarthritic changes are noted at the right hip. No bone destruction or periosteal reaction is seen. No conclusive right hip joint effusion is seen. If infection of the right hip is suspected clinically, aspiration and culture is advised. No right femoral lymphadenopathy by size criteria. 10 mm sclerotic lesion noted within the right iliac bone above the right acetabulum of uncertain significance and could be correlated clinically with risk factors. This could represent a bone island if there is no elevated risk for malignancy/metastatic disease. IMPRESSION: Mild osteoarthritic changes. Other findings and recommendations discussed above. Electronically signed by: Nikita Pollock On 11/07/2018 01:23:02 AM
[2018-11-07] MEDS ORDERED: KETOROLAC 60 MG/2 ML VIAL (J1885) IM ONE (01:30)
[2018-11-07] MEDS ORDERED: KETO10TAB PO (02:45)
[2018-11-07 02:50] VITALS: BP 112/66
--- NOTE | 2018-11-13 07:30 | ED PDOC ---
Post-Departure Follow-Up dr herbert faxed formal report of ct hip for fu Alexia Santana MD November 13, 2018 07:30
== END 2018-11-07 02:56 | disposition home or self-care (01) ==
LOC: M ED 22:21
DX: G89.29 Other chronic pain (principal); M25.551 Pain in right hip; E11.9 Type 2 diabetes mellitus without complications; I10 Essential (primary) hypertension; L30.9 Dermatitis, unspecified; M51.36 Other intervertebral disc degeneration, lumbar region; M16.11 Unilateral primary osteoarthritis, right hip; M16.12 Unilateral primary osteoarthritis, left hip; Z79.899 Other long term (current) drug therapy; Z88.1 Allergy status to other antibiotic agents; Z88.5 Allergy status to narcotic agent; Z88.8 Allergy status to other drugs, medicaments and biological substances
CPT/HCPCS: 73502; 73700; 80048; 85027; 87040; 96372; 99284; J1885

== ENCOUNTER → 2018-11-23 | Outpatient (CLI) | payer BC ==
[~2018-11-23] MED LIST changes: +KETO10TAB PO; +LIDO5DIS41 TD
--- NOTE | 2018-12-09 00:16 | ECWPNPC ---
PATIENT NAME: KHANH GEORGE : 1960 GENDER: MALE VISIT DATE: 11/23/2018 DISCHARGE DATE: 11/23/18 1122 VISIT LOCKED DATE TIME: PHYSICIAN: LAURO LÓPEZ MD PHYSICIAN PAGER NO: [phone] RESOURCE: LAURO LÓPEZ MD REASON FOR APPOINTMENT 1. NEUROPATHY- KEEP LONG FOR DISCUSSING MEDS HISTORY OF PRESENT ILLNESS HISTORY OF PRESENT ILLNESS: PAIN THE PATIENT DESCRIBES THE PAIN... 58 YEAR OLD MALE PATIENT WITH A HISTORY OF CHRONIC NEUROPATHY. THE PATIENT DESCRIBES THE PAIN ACHING, TENDER, STABBING, AND CONTINUOUS WITH A PAIN SCORE OF 6-9/10 DEPENDING ON PHYSICAL ACTIVITY AND MEDICATION USE. THE PATIENT SAYS THAT HIS PAIN IS MAINLY IN HIS FEET, RIGHT HIP, AND RIGHT KNEE. THE PATIENT STATES THAT HIS DCS IMPLANT HAS BEEN HELPING WITH THE PAIN IN HIS FEET. THE PATIENT SAYS HE WENT TO [facility] FOR THE PAIN IN HIS RIGHT HIP AND KNEE, BUT REPORTS THEY TOLD HIM THERE WAS NOTHING THEY COULD DO FOR HIM. THE PATIENT WAS USING GABAPENTIN, BUT SAYS THAT IT GAVE HIM HALLUCINATIONS. THE PATIENT IS CURRENTLY USING TRAMADOL AND PERCOCET TO AID IN PAIN RELIEF. THE PATIENT SAYS THAT HE HAS DIFFICULTY DOING DAILY ACTIVITIES DUE TO THIS PAIN, BUT THE MEDICATIONS HELP HIM REMAIN MOBILE AND FUNCTIONAL. THE PATIENT HAS A HISTORY OF MRSA THAT IS CURRENTLY BEING FOLLOWED BY DR. VILLAR. PATIENT DENIES UNEXPLAINABLE WEIGHT LOSS, FEVER, CHILLS, NEW CHANGES ON HIS URINARY OR BOWEL CONTROL. FALL RISK SCREENING: SCREENING :NO FALLS REPORTED IN THE LAST YEAR CURRENT MEDICATIONS TAKING ONDANSETRON HCL 4 MG TABLET 1-2 TABLETS ORALLY EVERY 4 HOURS NEEDED TAKING LANTUS SOLOSTAR 100 UNIT/ML SOLUTION 75 UNITS, QHS SUBCUTANEOUS DIRECTED TAKING LANTUS SOLO STAR PEN NEEDLES 4MM NEEDLES 32 G 1 SUBCUTANEOUS BID 11.42 TAKING LANTUS SOLOSTAR 100 UNIT/ML SOLUTION PEN-INJECTOR INJECT 75 UNITS UNDER THE SKIN AT BEDTIME AND 35 UNITS EVERY MORNING DIRECTED TAKING ICY HOT 5 % PAD 1 PAD TO AFFECTED AREA NEEDED EXTERNALLY ONCE A DAY TAKING ONETOUCH ULTRA 2 W/DEVICE KIT 1 E11.42 TAKING METRONIDAZOLE 0.75 % LOTION 1 APPLICATION TO AFFECTED AREA EXTERNALLY ON FACE DIRECTED TWICE A DAY TAKING MOTRIN IB 200 MG TABLET 3 - 4 TABS ORALLY EVERY 8 HRS PRN TAKING LUMIGAN 0.01 % SOLUTION INSTILL 1 DROP IN EACH EYE AT NIGHT TIME OPHTHALMIC TAKING HIBICLENS 4 % LIQUID TOPICAL EXTERNALLY DAILY TAKING BACTROBAN 2 % CREAM 1 APPLICATION TO AFFECTED AREA EXTERNALLY THREE TIMES A DAY TAKING LIDOCAINE 5 % PATCH DIRECTED EXTERNALLY APPLEY 2 PATCHES TO HIP OR BACK ON 12 HOURS OFF 12 HOURS MDD2 TAKING DICLOFENAC SODIUM 1 % GEL 2 GM TRANSDERMAL TID, PRN PAIN TAKING JANUVIA 100 MG TABLET 1 TABLET ORALLY ONCE A DAY TAKING PERCOCET 10-325 MG TABLET 1 TABLETS ORALLY EVERY 4 HRS PRN PAIN MDD=5 TAKING TRAMADOL HCL 50 MG TABLET 1 TABLET NEEDED ORALLY Q6H PRN PAIN MDD4 TAKING LIDOCAINE 5 % OINTMENT 1 APPLICATION TO AFFECTED AREA NEEDED EXTERNALLY APPLY Q 4-6 HRS PRN PAIN APPLY TO PAINFUL AREA OF FEET/KNEE MEDICATION LIST REVIEWED AND RECONCILED WITH THE PATIENT PAST MEDICAL HISTORY DIABETES MELLITUS KIDNEY STONES GLAUCOMA PNEUMONIA SHOT GIVEN 05-03-2011 WHILE INPATIENT @ [facility] 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 NEED FOR PROPHYLACTIC VACCINATION AND INOCULATION, INFLUENZA ERECTILE DYSFUNCTION / IMPOTENCE KIDNEY STONE GROSS HEMATURIA 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 ATYPICAL CHEST PAIN ABDOMINAL PAIN DIABETIC TOE ULCER OSTEOARTHRITIS OF HIP OSTEOARTHRITIS OF RIGHT HIP MRSA COLONIZATION FURUNCULOSIS DRY MOUTH SIDE EFFECT WITH INVOKANA CHILDHOOD POLIO AGE APPROX 19 MOS ARTHRITIS IN HANDS AGENT ORANGE EXPOSURE 1982 RIGHT LEG PAIN ALLERGIES MORPHINE SULFATE: NAUSEA/VOMITING - SIDE EFFECTS METFORMIN: HICCUPS - SIDE EFFECTS GABAPENTIN: HALLUCINATIONS - SIDE EFFECTS SURGICAL HISTORY WRIST SURGERY RIGHT KNEE GALLBLADDER 04-22-2014 NEURO STIMULATOR TRAIL 12/2014 NEURO STIMULATOR PLACED 03/2015 FAMILY HISTORY FATHER: , DIAGNOSED WITH DIABETES, CANCER MOTHER: , STROKE, DIABETES 2 BROTHER(S) . 1 SON(S) , 1 DAUGHTER(S) . 2 SISTER , FATHER -BLACK LUNG AND KIDNEY CANCER, MOM- STROKE\NSISTER - COMPLICATIONS FROM DMSISTER - : CANCER. SOCIAL HISTORY GENERAL: TOBACCO USE ARE YOU A:NONSMOKER NEVER SMOKER ADDITIONAL FINDINGS: TOBACCO USER NONE ADDITIONAL FINDINGS: TOBACCO NON-USER NO VAPORNO E-CIGARETTENO HIV / HEP-C SCREENING HIV TEST OFFERED TO PATIENT:YES DATE OFFERED:10/24/2018 TEST ACCEPTED:NO HEP-C TEST OFFERED TO PATIENT:YES DATE OFFERED:10/24/2018 REASON:PATIENT DECLINED TEST ACCEPTED:NO REASON:PATIENT DECLINED TESTED 2013 BROCHURE PROVIDED TO PATIENTNO DECLINES OTHERS AT HOME: SPOUSE. EDUCATION LEVEL OF EDUCATION:COLLEGE DIET: CARBOHYDRATE CONTROLLED. LANGUAGE SYRIAC. DOMESTIC VIOLENCE DO YOU FEEL SAFE IN YOUR ENVIRONMENT?YES NEW PATIENT PAIN DIARY FROM 0-10, WHAT LEVEL IS YOUR PAIN TODAY?4 BMI CARE GOAL FOLLOW-UP ABOVE NORMAL BMI FOLLOW-UPDIETARY MANAGEMENT EDUCATION, GUIDANCE, AND COUNSELING RECREATIONAL DRUG USE DRUG USE?NO EXERCISE: WALKS. LEARNING BARRIERS / SPECIAL NEEDS CHANGE FROM LAST VISIT?NO 07/17/2018 BARRIERS TO LEARNING?NO HEARING IMPAIRED?NO VISION IMPAIRED?YES COGNITIVELY IMPAIRED?NO :CORRECTIVE LENSES READING READINESS TO LEARN?YES LEARNING PREFERENCES?NO LEARNING CAPABILITIES PRESENT?YES EMOTIONAL BARRIERS?NO SPECIAL DEVICES?NO NEUROSURGICAL PHYSICIAN ASSISTANT NEEDED?NO LUNG CANCER SCREENING SMOKING STATUS:NON SMOKER PAIN CLINIC PFS, CLERGY, PUBLIC HEALTH REFERRALS PFS REFERRAL NEEDED?NO CLERGY REFERRAL NEEDED?NO PUBLIC HEALTH REFERRAL NEEDED?NO WAS THE PROVIDER NOTIFIED OF ANY PERTINENT INFO?YES HAS THE PATIENT BEEN EDUCATED REGARDING HIS/HER PLAN OF CARE?YES HAS THE PATIENT BEEN EDUCATED REGARDING PAIN, THE RISK FOR PAIN, THE IMPORTANCE OF EFFECTIVE PAIN MANAGEMENT, AND THE PAIN ASSESSMENT PROCESS?YES LATEX QUESTIONNAIRE LATEX ALLERGY : HAVE YOU EVER DEVELOPED ANY TYPE OF REACTION AFTER HANDLING LATEX PRODUCTS SUCH RUBBER GLOVES, CONDOMS, DIAPHRAGMS, BALLOONS, SOCKS, OR UNDERWEAR?NO LATEX ALLERGY : HAVE YOU EVER DEVELOPED ANY TYPE OF REACTION DURING OR AFTER DENTAL APPOINTMENT, VAGINAL/RECTAL EXAMINATION, SURGICAL PROCEDURE, OR ANY OTHER EXPOSURE?NO DATE ASKED : 09/11/2018 LATEX RISK : HAVE YOU EVER HAD ANY DIFFICULTY BREATHING OR HIVES AFTER EATING OR HANDLING ANY FRUITS, OR VEGETABLES; SUCH KIWI, BANANAS, STONE FRUITS, OR CHESTNUTSNO LATEX RISK : DO YOU HAVE A PREVIOUS PERSONAL HISTORY OF MORE THAN NINE SURGERIES, SPINA BIFIDA, OR REPEATED CATHERTIZATIONS? NO LATEX RISK : ARE YOU FREQUENTLY EXPOSED TO LATEX PRODUCTS IN YOUR OCCUPATION?NO CAFFEINE CAFFEINE USE?YES HOW OFTEN AND HOW MUCH? 1-2 CUPS COFFEE/DAY ADVANCE DIRECTIVE ADVANCE DIRECTIVE DISCUSSED WITH PATIENT:YES PATIENT STATES HE HAS HCP INFORMATION AT HOME, DECLINED ASSISTANCE WITH FILLING OUT PAPERWORK AT THIS TIME. EPISCOPAL [id number] NONE MARITAL STATUS: . 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 SEXUAL HX HAD SEX IN THE LAST 12 MONTHS (VAGINAL, ORAL, OR ANAL)?YES WITHWOMEN ONLY PREVENTION STRATEGIES DISCUSSED:OTHER USE PROTECTION?NO HAVE YOU EVER HAD AN STD?NO REVIEWED WITH PATIENT 07/13/18 0973 JSREVIEWED WITH PATIENT 11/23/18 0952 JS. HOSPITALIZATION/MAJOR DIAGNOSTIC PROCEDURE ABSCESS AROUND RIGHT KIDNEY 05/2011 COLON BLOCKAGE @ [facility] AUG 112012 [facility] ABDOMINAL PAIN SECONDARY TO MESENTERIC ADENITIS AUG 21 [facility] ER -ABD.PAIN-GALLSTONES 12/21/13 REVIEW OF SYSTEMS REVIEWED BY: PROVIDER: LAURO LÓPEZ MD . CONSTITUTIONAL: ANY CHANGE IN YOUR MEDICAL CONDITION? NO . CHILLS NO . FEVER NO . INFECTION: DO YOU HAVE NEW INFECTIONS? NO . DO YOU HAVE HISTORY OF MRSA? YES, STATES HISTORY OF, NO ACTIVE INFECTION . MUSCULOSKELETAL: ANY NEW PATTERNS OF PAIN OR NUMBNESS? YES, STATES INCREASED PAIN TO RIGHT HIP/LEG AREA, RADIATING TO BACK. STATES HE HEARD CRACK/SNAP NOISE AT THE BEGINNING OF OCTOBER WITH INSTANT PAIN TO THE HIP AREA. PAIN WAS SO SEVERE THAT HE HAD TO GO TO THE ER. CT PERFORMED , SHOWED NO FRACTURE OR ABNORMALITY, ONLY SHOWED HIS ARTHRITIS . GASTROENTEROLOGY: ANY NEW CHANGE IN BOWEL CONTROL? NO . GENITOURINARY: ANY NEW CHANGE IN BLADDER CONTROL? NO . IS THERE A CHANCE YOU COULD BE ? NO . HEMATOLOGY/LYMPH: DO YOU TAKE ANY BLOOD THINNERS? (FOR EXAMPLE- COUMADIN, PLAVIX, AGGRENOX, PLATEL, PRADAXA, OR XARELTO) NO . WHEN WAS YOUR LAST DOSE? DATE: TIME: . NEUROLOGY: HAVE YOU FALLEN IN THE PAST 12 MONTHS? YES, STATES FALL PRIOR TO LAST VISIT, DISCUSSED AT LAST VISIT . ANY NEW EXTREMITY NUMBNESS OR WEAKNESS? YES, STATES WEAKNESS TO RIGHT LEG, HAS TO USE A CANE MOST DAYS LATELY . CARDIOLOGY: DO YOU HAVE A PACEMAKER OR DEFIBRILLATOR? NO, DCS . RESPIRATORY: HAVE YOU BEEN SICK IN THE PAST WEEK? NO . FEVER NO . FLU LIKE SYMPTOMS? NO . COUGH NO . INTEGUMENTARY: DO YOU HAVE ANY RASHES OR OPEN SORES? NO . ALLERGIC/IMMUNO: ARE YOU ALLERGIC TO IV DYE? NO . ANY NEW ALLERGIES? NO . PSYCHIATRIC: DO YOU HAVE THOUGHTS OF HURTING YOURSELF OR SOMEONE ELSE? NO . ARE YOU ABUSED, NEGLECTED, OR IN AN UNSAFE ENVIRONMENT? NO . ENDOCRINOLOGY: ARE YOU DIABETIC? YES . OTHER: DO YOU NEED ANY PRESCRIPTIONS? NO . IF YES, PLEASE LIST: ____ . ANY NEW PROBLEMS WITH YOUR MEDICATIONS? YES, STATES HALLUCINATIONS FROM GABAPENTIN . WHEN DID YOU LAST EAT? ____ . WHEN DID YOU LAST DRINK? ____ . WHAT DID YOU LAST DRINK? ____ . NAME OF PERSON DRIVING YOU HOME? ____ . DO YOU HAVE ANY OTHER QUESTIONS OR CONCERNS YES, STATES HE NEEDS TO INCREASE HIS PERCOCET BACK UP TO 6 TABLETS/DAY DUE TO INCREASED PAIN. WAS UNABLE TO TAKE THE GABAPENTIN DUE TO HALLUCINATIONS . VITAL SIGNS WT 282 LBS, HT 71 IN, BMI 39.33 INDEX, BP 152/96 MM HG, REPEAT BP 140/84 MANUAL, HR 73 /MIN, RR 18 /MIN, TEMP 73 F, OXYGEN SAT % 94%, SAFE IN ENV? (Y/N) YES, NA INITIALS AW 0933, REVIEWED BY: JEAN. EXAMINATION GENERAL EXAMINATION: PATIENT IS ALERT O X 3 AND COOPERATIVE. ANTALGIC GAIT. PATIENT IS LIMPING FROM HIS RIGHT LEG. TENDERNESS OVER THE RIGHT KNEE AND RIGHT HIP AREAS. ASSESSMENTS DIABETIC PERIPHERAL NEUROPATHY - E11.42 (PRIMARY) RIGHT HIP PAIN - M25.551 PAIN IN RIGHT KNEE - M25.561 OTHER CHRONIC PAIN - G89.29 TREATMENT DIABETIC PERIPHERAL NEUROPATHY CLINICAL NOTES: WE DISCUSSED SEVERAL ISSUES WITH MR. GEORGE'S PAIN MANAGEMENT CASE. THE PATIENT MAY CONSIDER A HIP OR KNEE INJECTION IN THE FUTURE, SO I WOULD LIKE TO GET DR. VILLAR'S OPINION ON THE PROTOCOL OF WHAT TO DO PRIOR TO INJECTIONS DUE TO THE HISTORY OF MRSA AND DM. I WOULD ALSO LIKE TO GET ANY IMAGING THE PATIENT HAS HAD DONE ON HIS RIGHT HIP AND RIGHT KNEE. THE PATIENT WILL USE 6 PERCOCET PER DAY NEEDED FOR THE SOMATIC PAIN IN HIS RIGHT HIP AND RIGHT KNEE. THE PATIENT MAY CONSIDER SWITCHING TO A LONG ACTING MEDICATION IN THE FUTURE. THE PATIENT WILL REDUCE HIS TRAMADOL TO 2 TABLETS PER DAY FOR THE NEUROPATHIC PAIN. ISTOP __#[id number] WAS REVIEWED. THE PATIENT WAS REMINDED TO BRING HIS MEDICATIONS TO EVERY VISIT IN THEIR ORIGINAL BOTTLES. THE PATIENT WILL FOLLOW UP IN 1 MONTH. I WAS WITH THE PATIENT FOR OVER 30 MINUTES AND MORE THAN HALF OF THE TIME WAS SPENT DISCUSSING MEDICATIONS AND ALTERNATIVES IN THE PATIENT'S CARE. INSTRUCTIONS WERE GIVEN, QUESTIONS WERE ANSWERED, PATIENT REPORTS UNDERSTANDING AND AGREES WITH THE PLAN. I, JAMES BRIGGS, DOCUMENTED THE ABOVE INFORMATION ACTING A SCRIBE FOR DR. LÓPEZ. I HAVE REVIEWED THE ABOVE DOCUMENT, WRITTEN BY JAMES MENAIBCecelia AND I VERIFY THAT IT IS ACCURATE. . OTHERS REFILL PERCOCET TABLET, 10-325 MG, 1 TABLETS, ORALLY, EVERY 4 HRS PRN PAIN MDD=6, 30 DAYS, 180, REFILLS 0 REFILL TRAMADOL HCL TABLET, 50 MG, 1 TABLET NEEDED, ORALLY, Q6H PRN PAIN MDD2, 30 DAYS, 60, REFILLS 0 PROCEDURE CODES FA211 ESTABILISHED PATIENT [facility] FACILITY CHARGE G8427 CURRENT MEDS W/DOSAGES DOCUMENTED G8730 PAIN ASSESS POS TOOL F/U PLAN DOC DISPOSITION & COMMUNICATION FOLLOW UP 1 MONTH (REASON: NEUROPATHY, RIGHT KNEE, AND RIGHT HIP) ELECTRONICALLY SIGNED BY LAURO LÓPEZ MD, MD ON 12/08/2018 AT 04:55 PM EDT DISCLAIMER : THIS IS A VISIT SUMMARY EXTRACTED FROM THE [employer] CHART. IT IS NOT A COPY OF THE charity: [employer] PROGRESS NOTE. EVAN
== END ==
LOC: M PAIN 09:30
PROVIDERS: ATTEND Anesthesiology
DX: E11.42 Type 2 diabetes mellitus with diabetic polyneuropathy (principal); M25.551 Pain in right hip; M25.561 Pain in right knee; G89.29 Other chronic pain; Z86.14 Personal history of Methicillin resistant Staphylococcus aureus infection; M19.90 Unspecified osteoarthritis, unspecified site; Z88.5 Allergy status to narcotic agent; Z88.8 Allergy status to other drugs, medicaments and biological substances; Z79.4 Long term (current) use of insulin; Z79.891 Long term (current) use of opiate analgesic; Z79.899 Other long term (current) drug therapy

== ENCOUNTER → 2018-12-04 | Outpatient (REF) | payer BC | LOC: M SFHCPLAZ 12:36 | PROVIDERS: ATTEND Internal Medicine Infectious Disease | DX: Z22.322 Carrier or suspected carrier of Methicillin resistant Staphylococcus aureus (principal) ==

== ENCOUNTER → 2018-12-24 | Outpatient (CLI) | payer BC ==
--- NOTE | 2019-01-02 00:32 | ECWPNPC ---
PATIENT NAME: KHANH GEORGE : 1960 GENDER: MALE VISIT DATE: 12/24/2018 DISCHARGE DATE: 12/24/18 1040 VISIT LOCKED DATE TIME: PHYSICIAN: LAURO LÓPEZ MD PHYSICIAN PAGER NO: [phone] RESOURCE: LAURO LÓPEZ MD REASON FOR APPOINTMENT 1. NEUROPATHY, RIGHT KNEE, AND RIGHT HIP HISTORY OF PRESENT ILLNESS HISTORY OF PRESENT ILLNESS: PAIN THE PATIENT DESCRIBES THE PAIN... 58 YEAR OLD MALE PATIENT WITH A HISTORY OF CHRONIC NEUROPATHY. THE PATIENT DESCRIBES THE PAIN ACHING, BURNING, STABBING, PULLING, SEVERE, AND CONTINUOUS WITH A PAIN SCORE OF 4-8/10 DEPENDING ON PHYSICAL ACTIVITY. THE PATIENT STATES HIS PAIN IS MAINLY IN RIGHT HIP, RIGHT LEG, RIGHT KNEE, AND FEET. THE PATIENT SAYS HE HAS HAD DIABETES FOR MANY YEARS AND SOME OF HIS PAIN MAY BE CORRELATED WITH THIS CONDITION. THE PATIENT SAYS HIS DCS IMPLANT IS STILL HELPING WITH PAIN RELIEF. THE PATIENT SAYS HE WILL BE GOING TO HIS ORTHOPEDIC TO DISCUSS ABOUT SURGERY. THE PATIENT MENTIONS HE CANNOT HAVE MRI'S PERFORMED DUE TO HAVING A STINT, BUT CT SCANS ARE FINE. THE PATIENT SAYS HIS MRSA INFECTION HAS CLEARED AND HE IS DUE TO HAVE ONE MORE CULTURE PERFORMED. THE PATIENT SAYS HE USES DICLOFENAC GEL OVER HIS FINGERS FOR ARTHRITIS, LIDOCAINE PATCHES FOR BURSITIS IN HIS KNEES, TRAMADOL 50 MG NEEDED, AND PERCOCET 10-325 MG 5-6 TABLETS DAILY THAT AIDS IN PAIN RELIEF AND DOES NOT CAUSE ANY ADVERSE SIDE EFFECTS FOR HIM LIKE OTHER PREVIOUS MEDICATIONS HAVE. PATIENT DENIES UNEXPLAINABLE WEIGHT LOSS, FEVER, CHILLS, NEW CHANGES ON HIS URINARY OR BOWEL CONTROL. FALL RISK SCREENING: SCREENING :NO FALLS REPORTED IN THE LAST YEAR CURRENT MEDICATIONS TAKING ICY HOT 5 % PAD 1 PAD TO AFFECTED AREA NEEDED EXTERNALLY ONCE A DAY TAKING [email or web address] ULTRA 2 W/DEVICE KIT 1 E11.42 TAKING METRONIDAZOLE 0.75 % LOTION 1 APPLICATION TO AFFECTED AREA EXTERNALLY ON FACE DIRECTED TWICE A DAY TAKING MOTRIN IB 200 MG TABLET 3 - 4 TABS ORALLY EVERY 8 HRS PRN TAKING LUMIGAN 0.01 % SOLUTION INSTILL 1 DROP IN EACH EYE AT NIGHT TIME OPHTHALMIC TAKING HIBICLENS 4 % LIQUID TOPICAL EXTERNALLY DAILY TAKING BACTROBAN 2 % CREAM 1 APPLICATION TO AFFECTED AREA EXTERNALLY THREE TIMES A DAY TAKING LIDOCAINE 5 % OINTMENT 1 APPLICATION TO AFFECTED AREA NEEDED EXTERNALLY APPLY Q 4-6 HRS PRN PAIN APPLY TO PAINFUL AREA OF FEET/KNEE TAKING PERCOCET 10-325 MG TABLET 1 TABLETS ORALLY EVERY 4 HRS PRN PAIN MDD=6 TAKING TRAMADOL HCL 50 MG TABLET 1 TABLET NEEDED ORALLY Q6H PRN PAIN MDD2 TAKING ONDANSETRON HCL 4 MG TABLET 1-2 TABLETS ORALLY EVERY 4 HOURS NEEDED TAKING LANTUS SOLOSTAR 100 UNIT/ML SOLUTION 75 UNITS, QHS SUBCUTANEOUS DIRECTED TAKING LANTUS SOLO STAR PEN NEEDLES 4MM NEEDLES 32 G 1 SUBCUTANEOUS BID 11.42 TAKING LANTUS SOLOSTAR 100 UNIT/ML SOLUTION PEN-INJECTOR INJECT 75 UNITS UNDER THE SKIN AT BEDTIME AND 35 UNITS EVERY MORNING DIRECTED TAKING JANUVIA 100 MG TABLET 1 TABLET ORALLY ONCE A DAY TAKING DICLOFENAC SODIUM 1 % GEL 2 GM TRANSDERMAL TID, PRN PAIN TAKING LIDOCAINE 5 % PATCH DIRECTED EXTERNALLY APPLEY 2 PATCHES TO HIP OR BACK ON 12 HOURS OFF 12 HOURS MDD2 MEDICATION LIST REVIEWED AND RECONCILED WITH THE PATIENT PAST MEDICAL HISTORY DIABETES MELLITUS KIDNEY STONES GLAUCOMA PNEUMONIA SHOT GIVEN 05-03-2011 WHILE INPATIENT @ [facility] 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 NEED FOR PROPHYLACTIC VACCINATION AND INOCULATION, INFLUENZA ERECTILE DYSFUNCTION / IMPOTENCE KIDNEY STONE GROSS HEMATURIA 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 ATYPICAL CHEST PAIN ABDOMINAL PAIN DIABETIC TOE ULCER OSTEOARTHRITIS OF HIP OSTEOARTHRITIS OF RIGHT HIP MRSA COLONIZATION FURUNCULOSIS DRY MOUTH SIDE EFFECT WITH INVOKANA CHILDHOOD POLIO AGE APPROX 19 MOS ARTHRITIS IN HANDS AGENT ORANGE EXPOSURE 1982 RIGHT LEG PAIN ALLERGIES MORPHINE SULFATE: NAUSEA/VOMITING - SIDE EFFECTS METFORMIN: HICCUPS - SIDE EFFECTS GABAPENTIN: HALLUCINATIONS - SIDE EFFECTS SURGICAL HISTORY WRIST SURGERY RIGHT KNEE GALLBLADDER 04-22-2014 NEURO STIMULATOR TRAIL 12/2014 NEURO STIMULATOR PLACED 03/2015 FAMILY HISTORY FATHER: , DIAGNOSED WITH DIABETES, CANCER MOTHER: , STROKE, DIABETES 2 BROTHER(S) . 1 SON(S) , 1 DAUGHTER(S) . 2 SISTER , FATHER -BLACK LUNG AND KIDNEY CANCER, MOM- STROKE\NSISTER - COMPLICATIONS FROM DMSISTER - : CANCER. SOCIAL HISTORY GENERAL: TOBACCO USE ARE YOU A:NONSMOKER NEVER SMOKER ADDITIONAL FINDINGS: TOBACCO USER NONE ADDITIONAL FINDINGS: TOBACCO NON-USER NO VAPORNO E-CIGARETTENO HIV / HEP-C SCREENING HIV TEST OFFERED TO PATIENT:YES DATE OFFERED:10/24/2018 TEST ACCEPTED:NO HEP-C TEST OFFERED TO PATIENT:YES DATE OFFERED:10/24/2018 REASON:PATIENT DECLINED TEST ACCEPTED:NO REASON:PATIENT DECLINED TESTED 2013 BROCHURE PROVIDED TO PATIENTNO DECLINES OTHERS AT HOME: SPOUSE. EDUCATION LEVEL OF EDUCATION:COLLEGE DIET: CARBOHYDRATE CONTROLLED. LANGUAGE CITIZEN OF [place]. DOMESTIC VIOLENCE DO YOU FEEL SAFE IN YOUR ENVIRONMENT?YES NEW PATIENT PAIN DIARY FROM 0-10, WHAT LEVEL IS YOUR PAIN TODAY?4 BMI CARE GOAL FOLLOW-UP ABOVE NORMAL BMI FOLLOW-UPDIETARY MANAGEMENT EDUCATION, GUIDANCE, AND COUNSELING RECREATIONAL DRUG USE DRUG USE?NO EXERCISE: WALKS. LEARNING BARRIERS / SPECIAL NEEDS CHANGE FROM LAST VISIT?NO 07/17/2018 BARRIERS TO LEARNING?NO HEARING IMPAIRED?NO VISION IMPAIRED?YES COGNITIVELY IMPAIRED?NO :CORRECTIVE LENSES READING READINESS TO LEARN?YES LEARNING PREFERENCES?NO LEARNING CAPABILITIES PRESENT?YES EMOTIONAL BARRIERS?NO SPECIAL DEVICES?NO MEDICAL COMMUNICATION SPECIALIST NEEDED?NO LUNG CANCER SCREENING SMOKING STATUS:NON SMOKER PAIN CLINIC PFS, CLERGY, PUBLIC HEALTH REFERRALS PFS REFERRAL NEEDED?NO CLERGY REFERRAL NEEDED?NO PUBLIC HEALTH REFERRAL NEEDED?NO WAS THE PROVIDER NOTIFIED OF ANY PERTINENT INFO?YES HAS THE PATIENT BEEN EDUCATED REGARDING HIS/HER PLAN OF CARE?YES HAS THE PATIENT BEEN EDUCATED REGARDING PAIN, THE RISK FOR PAIN, THE IMPORTANCE OF EFFECTIVE PAIN MANAGEMENT, AND THE PAIN ASSESSMENT PROCESS?YES LATEX QUESTIONNAIRE LATEX ALLERGY : HAVE YOU EVER DEVELOPED ANY TYPE OF REACTION AFTER HANDLING LATEX PRODUCTS SUCH RUBBER GLOVES, CONDOMS, DIAPHRAGMS, BALLOONS, SOCKS, OR UNDERWEAR?NO LATEX ALLERGY : HAVE YOU EVER DEVELOPED ANY TYPE OF REACTION DURING OR AFTER DENTAL APPOINTMENT, VAGINAL/RECTAL EXAMINATION, SURGICAL PROCEDURE, OR ANY OTHER EXPOSURE?NO DATE ASKED : 09/11/2018 LATEX RISK : HAVE YOU EVER HAD ANY DIFFICULTY BREATHING OR HIVES AFTER EATING OR HANDLING ANY FRUITS, OR VEGETABLES; SUCH KIWI, BANANAS, STONE FRUITS, OR CHESTNUTSNO LATEX RISK : DO YOU HAVE A PREVIOUS PERSONAL HISTORY OF MORE THAN NINE SURGERIES, SPINA BIFIDA, OR REPEATED CATHERTIZATIONS? NO LATEX RISK : ARE YOU FREQUENTLY EXPOSED TO LATEX PRODUCTS IN YOUR OCCUPATION?NO CAFFEINE CAFFEINE USE?YES HOW OFTEN AND HOW MUCH? 1-2 CUPS COFFEE/DAY ADVANCE DIRECTIVE ADVANCE DIRECTIVE DISCUSSED WITH PATIENT:YES PATIENT STATES HE HAS HCP INFORMATION AT HOME, DECLINED ASSISTANCE WITH FILLING OUT PAPERWORK AT THIS TIME. RESTORATIONIST [id number] NONE MARITAL STATUS: . 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 SEXUAL HX HAD SEX IN THE LAST 12 MONTHS (VAGINAL, ORAL, OR ANAL)?YES WITHWOMEN ONLY PREVENTION STRATEGIES DISCUSSED:OTHER USE PROTECTION?NO HAVE YOU EVER HAD AN STD?NO REVIEWED WITH PATIENT 07/13/18 0929 JSREVIEWED WITH PATIENT 11/23/18 0952 JS. HOSPITALIZATION/MAJOR DIAGNOSTIC PROCEDURE ABSCESS AROUND RIGHT KIDNEY 05/2011 COLON BLOCKAGE @ [facility] AUG [id number] [facility] ABDOMINAL PAIN SECONDARY TO MESENTERIC ADENITIS AUG 21 [facility] ER -ABD.PAIN-GALLSTONES 12/21/13 REVIEW OF SYSTEMS REVIEWED BY: PROVIDER: LAURO LÓPEZ MD . CONSTITUTIONAL: ANY CHANGE IN YOUR MEDICAL CONDITION? NO . CHILLS NO . FEVER NO . INFECTION: DO YOU HAVE NEW INFECTIONS? NO . DO YOU HAVE HISTORY OF MRSA? YES . MUSCULOSKELETAL: ANY NEW PATTERNS OF PAIN OR NUMBNESS? NO . GASTROENTEROLOGY: ANY NEW CHANGE IN BOWEL CONTROL? NO . GENITOURINARY: ANY NEW CHANGE IN BLADDER CONTROL? NO . IS THERE A CHANCE YOU COULD BE ? NO . HEMATOLOGY/LYMPH: DO YOU TAKE ANY BLOOD THINNERS? (FOR EXAMPLE- COUMADIN, PLAVIX, AGGRENOX, PLATEL, PRADAXA, OR XARELTO) NO . WHEN WAS YOUR LAST DOSE? DATE: TIME: . NEUROLOGY: HAVE YOU FALLEN IN THE PAST 12 MONTHS? YES, FELL MONDAY FROM LOSS OF FEELING IN FEET, TRIPPED OVER ROOT, PT DENIES INJURIES . ANY NEW EXTREMITY NUMBNESS OR WEAKNESS? NO . CARDIOLOGY: DO YOU HAVE A PACEMAKER OR DEFIBRILLATOR? YES, DCS . RESPIRATORY: HAVE YOU BEEN SICK IN THE PAST WEEK? NO . FEVER NO . FLU LIKE SYMPTOMS? NO . COUGH NO . INTEGUMENTARY: DO YOU HAVE ANY RASHES OR OPEN SORES? NO . ALLERGIC/IMMUNO: ARE YOU ALLERGIC TO IV DYE? NO . ANY NEW ALLERGIES? NO . PSYCHIATRIC: DO YOU HAVE THOUGHTS OF HURTING YOURSELF OR SOMEONE ELSE? NO . ARE YOU ABUSED, NEGLECTED, OR IN AN UNSAFE ENVIRONMENT? NO . ENDOCRINOLOGY: ARE YOU DIABETIC? YES . OTHER: DO YOU NEED ANY PRESCRIPTIONS? NO . IF YES, PLEASE LIST: ____ . ANY NEW PROBLEMS WITH YOUR MEDICATIONS? NO . WHEN DID YOU LAST EAT? ____ . WHEN DID YOU LAST DRINK? ____ . WHAT DID YOU LAST DRINK? ____ . NAME OF PERSON DRIVING YOU HOME? ____ . DO YOU HAVE ANY OTHER QUESTIONS OR CONCERNS NO . VITAL SIGNS WT 278.4 LBS, HT 71 IN, BMI 38.82 INDEX, BP 157/87 MM HG, HR 89 /MIN, RR 18 /MIN, TEMP 97.1 F, OXYGEN SAT % 97%, NA INITIALS SC 09:48, REVIEWED BY: EM. EXAMINATION GENERAL EXAMINATION: PATIENT IS ALERT O X 3 AND COOPERATIVE. TENDERNESS OVER THE RIGHT ISCHIAL TUBEROSITY. X-RAY IMAGING OF THE RIGHT HIP DONE ON 07/20/2016 SHOWS ARTHRITIS OVER THE RIGHT HIP. ASSESSMENTS PRIMARY OSTEOARTHRITIS OF RIGHT HIP - M16.11 (PRIMARY) ISCHIAL BURSITIS OF RIGHT SIDE - M70.71 RIGHT HIP PAIN - M25.551 TREATMENT PRIMARY OSTEOARTHRITIS OF RIGHT HIP REFILL PERCOCET TABLET, 10-325 MG, 1 TABLETS, ORALLY, EVERY 4 HRS PRN PAIN MDD=6, 30 DAYS, 180, REFILLS 0 REFILL TRAMADOL HCL TABLET, 50 MG, 1 TABLET NEEDED, ORALLY, Q6H PRN PAIN MDD2 REFILL DICLOFENAC SODIUM GEL, 1 %, 2 GM, TRANSDERMAL, TID, PRN PAIN, 30 DAYS, 1, REFILLS 1 REFILL LIDOCAINE PATCH, 5 %, DIRECTED, EXTERNALLY, APPLEY 2 PATCHES TO HIP OR BACK ON 12 HOURS OFF 12 HOURS MDD2, 30 DAYS, 60, REFILLS 1 CLINICAL NOTES: WE DISCUSSED SEVERAL ISSUES WITH MR. GEORGE'S PAIN MANAGEMENT CASE. DUE TO THE PAIN AND BURSITIS OVER THE RIGHT ISCHIAL TUBEROSITY, I WOULD TO MOVE FORWARD WITH A RIGHT ISCHIAL TUBEROSITY INJECTION UNDER FLUOROSCOPY GUIDANCE. I AM REFERRING THE PATIENT TO [facility] FOR KNEE AND HIP PAIN. THE PATIENT MENTIONED THE MRSA INFECTION HAS CLEARED AND DR. VILLAR, HIS SPECIALIST, WILL CONTINUE TO OBSERVE. I REFILLED HIS MEDICATIONS AND THE PATIENT WILL CONTINUE WITH PERCOCET 10-325 MG 5-6 TABLETS PER DAY TO HELP WITH HIS PAIN AND USE TRAMADOL 50 MG NEEDED. THE PATIENT BROUGHT HIS MEDICATIONS TO TODAY'S VISIT. UTOX DONE ON 07/13/2018 SHOWS CONCURRENT RESULTS. ISTOP __# [id number] WAS REVIEWED. THE PATIENT WILL FOLLOWUP IN 2 MONTHS. INSTRUCTIONS WERE GIVEN, QUESTIONS WERE ANSWERED, PATIENT REPORTS UNDERSTANDING AND AGREES WITH THE PLAN. I, NAOMI VIRAMONTES, DOCUMENTED THE ABOVE INFORMATION ACTING A SCRIBE FOR DR. LÓPEZ. I HAVE REVIEWED THE ABOVE DOCUMENT, WRITTEN BY NAOMI MENAIBCecelia AND I VERIFY THAT IT IS ACCURATE. . PROCEDURE CODES FA211 ESTABILISHED PATIENT [facility] CHARGE G8427 CURRENT MEDS W/DOSAGES DOCUMENTED G8730 PAIN ASSESS POS TOOL F/U PLAN DOC DISPOSITION & COMMUNICATION FOLLOW UP 2 MONTHS (REASON: RIGHT ISCHICAL TUBEROSITY UNDER XRAY INJECTION) ELECTRONICALLY SIGNED BY LAURO LÓPEZ MD, MD ON 01/01/2019 AT 03:37 PM EDT DISCLAIMER : THIS IS A VISIT SUMMARY EXTRACTED FROM THE [employer] CHART. IT IS NOT A COPY OF THE [employer] PROGRESS NOTE. EVAN
== END ==
LOC: M PAIN 09:45
PROVIDERS: ATTEND Anesthesiology
DX: M16.11 Unilateral primary osteoarthritis, right hip (principal); M70.71 Other bursitis of hip, right hip; M25.551 Pain in right hip; E11.42 Type 2 diabetes mellitus with diabetic polyneuropathy; H40.9 Unspecified glaucoma; N52.9 Male erectile dysfunction, unspecified; M17.0 Bilateral primary osteoarthritis of knee; Z79.4 Long term (current) use of insulin; Z86.14 Personal history of Methicillin resistant Staphylococcus aureus infection; Z87.442 Personal history of urinary calculi; Z79.891 Long term (current) use of opiate analgesic; Z79.899 Other long term (current) drug therapy; Z88.5 Allergy status to narcotic agent; Z88.8 Allergy status to other drugs, medicaments and biological substances

== ENCOUNTER 2019-02-28 05:42 | Emergency (ER) | payer BC ==
[~2019-02-28] VITALS: Ht 185.4 cm; Wt 123.0 kg
[2019-02-28] MEDS ORDERED: ONDANSETRON 4MG/2ML VIAL (J2405) IV ONE (05:45)
[2019-02-28] MEDS ORDERED: NS 1,000 ML IV ONE (05:45)
[2019-02-28] MEDS ORDERED: ISOVUE-370 76% 100ML VIAL (Q9967) As Ordered ONE (05:56)
[2019-02-28 06:00] LABS: BASO % 0.4 % (0.0-1.0); EOS # 0.1 10^3/uL (0.0-0.50); HEMATOCRIT 53.2 % (42.0-52.0); LYMPH % 20.5 % (24.0-44.0); MEAN CORPUSCULAR HEMOGLOBIN 29.3 pg (27.0-33.0); MEAN CORPUSCULAR HGB CONC 33.8 g/dl (32.0-36.5); MEAN CORPUSCULAR VOLUME 86.5 fl (80.0-96.0); MONO # 1.3 10^3/uL (0.0-0.8); MONO % 13.8 % (0.0-5.0); NEUTROPHILS # 6.2 10^3/uL (1.8-7.7); PLATELET COUNT, AUTOMATED 169 10^3/uL (150-450); RED BLOOD COUNT 6.15 10^6/uL (4.30-6.10); WHITE BLOOD COUNT 9.7 10^3/uL (4.0-10.0)
[2019-02-28] MEDS ORDERED: fentaNYL 100 MCG/2 ML INJECTION (J3010) IV ONE (06:15)
[2019-02-28 06:18] LABS: INR 1.12; PARTIAL THROMBOPLASTIN TIME 31.5 SECONDS (25.0-38.4); PROTHROMBIN TIME 14.1 SECONDS (11.8-14.0)
[2019-02-28 06:23] LABS: ALBUMIN 3.4 GM/DL (3.2-5.2); ALT/SGPT 47 U/L (12-78); BILIRUBIN,DIRECT 0.4 MG/DL (0.0-0.2); BILIRUBIN,TOTAL 0.9 MG/DL (0.2-1.0); CK-MB VALUE MASS < 1.0 NG/ML (<3.6); CPK CREATINE PHOSPHOKINASE 50 U/L (39-308); LIPASE 61 U/L (73-393); TOTAL PROTEIN 7.6 GM/DL (6.4-8.2); TROPONIN I < 0.02 NG/ML (< 0.10)
--- NOTE | 2019-02-28 07:25 | REPVR ---
EXAM: CT Angiography Chest With Contrast EXAM DATE/TIME: 02/28/2019 5:45 AM CLINICAL HISTORY: 58 years old, male; Chest pain; Type not specified; Additional info: Severe epigastric pain, popping sensation, unresponsive TECHNIQUE: Imaging protocol: Computed tomographic angiography of the chest with intravenous contrast, including non-contrast images if performed. 3D rendering: MIP reconstructed images were created and reviewed. Radiation optimization: All CT scans at this facility use at least one of these dose optimization techniques: automated exposure control; mA and/or kV adjustment per patient size (includes targeted exams where dose is matched to clinical indication); or iterative reconstruction. Contrast material: ISO; Contrast volume: 100 ml; Contrast route: AC; COMPARISON: CT ANGIO CHEST 01/07/2013 4:34 PM FINDINGS: Pulmonary arteries: Normal. No pulmonary emboli. Aorta: Unremarkable. No aortic aneurysm. No aortic dissection. Lungs: There is low lung volume with bronchovascular crowding and basilar atelectatic changes. Pleural space: Unremarkable. No pneumothorax. No pleural effusion. Heart: Unremarkable. No cardiomegaly. No pericardial effusion. Lymph nodes: Unremarkable. No enlarged lymph nodes. Bones/joints: Unremarkable. No acute fracture. Soft tissues: Unremarkable. IMPRESSION: No CT evidence of acute chest abnormality. No thoracic aortic aneurysm or dissection seen. Electronically signed by: Tony Alonso On 02/28/2019 07:24:47 AM
[2019-02-28] MEDS: HYDROMORPHONE HCL 0.5 MG/ 0.5 ML SYRINGE (J1170 PER 1) IV PRN ×2 (07:27→08:40)
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
[2019-02-28] MEDS ORDERED: CIPR-249 PO (09:14)
[2019-02-28] MEDS ORDERED: FLAG500T PO (09:15)
[2019-02-28] MEDS ORDERED: CIPROFLOXACIN 500 MG TAB PO ONE (09:15)
[2019-02-28] MEDS ORDERED: metroNIDAZOLE (FLAGYL) 500 MG TAB PO ONE (09:15)
[2019-02-28 09:45] VITALS: BP 121/61
--- NOTE | 2019-02-28 21:22 | ECGEPIP ---
[facility] - ED Test Date: 2019-02-28 Pat Name: KHANH GEORGE Department: Room: - Gender: Male Environmental Associate: : 1960 Requested By: RACHEL Bell Order Number: [id number] Reading MD: Shivani Black Measurements Intervals [place] Rate: 91 P: 216 CO: 342 QRS: -24 QRSD: 110 T: 36 QT: 414 QTc: 511 Interpretive Statements baseline artifact may affect interpretation PROBABLE SINUS RHYTHM NO PRIOR ABNORMAL RHYTHM ECG Electronically Signed on 02-28-2019 21:21:38 EDT by Shivani Black
[2019-03-01] MEDS ORDERED: LIDO5OIN19 TOP (20:45)
[2019-03-01] MEDS ORDERED: LANTINJ4 SQ (20:45)
[2019-03-01] MEDS ORDERED: OXYC10TA3 PO (20:45)
== END 2019-02-28 10:11 | disposition home or self-care (01) ==
LOC: M ED 05:42
DX: K52.9 Noninfective gastroenteritis and colitis, unspecified (principal); E11.9 Type 2 diabetes mellitus without complications; R10.9 Unspecified abdominal pain; G89.29 Other chronic pain; Z88.8 Allergy status to other drugs, medicaments and biological substances; Z79.899 Other long term (current) drug therapy; Z79.4 Long term (current) use of insulin
CPT/HCPCS: 36600; 71275; 74177; 80047; 80076; 82550; 82553; 82803; 83605; 83690; 84484; 85025; 85610; 85730; 87040; 87186; 93005; 93041; 96374; 96375; 96376; 99285; J1170; J2405; J3010; Q9967

== ENCOUNTER 2019-03-01 20:25 | Inpatient (IN) | payer BC ==
[~2019-03-01] VITALS: Ht 185.4 cm; Wt 121.1 kg
[~2019-03-01 20:25] MED LIST changes: +CIPR-249 PO; +FLAG500T PO
[2019-03-01] MEDS ORDERED: LIDO5OIN19 TOP (20:45)
[2019-03-01] MEDS ORDERED: OXYC10TA3 PO (20:45)
[2019-03-01] MEDS ORDERED: LANTINJ4 SQ (20:45)
[2019-03-01] MEDS: HumaLOG INSULIN (NovoLOG) PER UNIT SC SCH (21:00)
[2019-03-01] MEDS: PANTOPRAZOLE 40MG INJ (PROTONIX) (C9113) IV SCH (21:00)
[2019-03-01] MEDS: LEVEMIR (INSULIN DETEMIR) 1 UNITS/0.01ML SQ SCH (21:00)
[2019-03-01] MEDS ORDERED: HALOPERIDOL 5 MG/ML VIAL (J1630) IV STA (21:39)
[2019-03-01] MEDS ORDERED: diphenhydrAMINE INJ 50MG/ML VIAL (J1200) IV STA (21:39)
[2019-03-01] MEDS ORDERED: NS 1,000 ML IV ONE (21:45)
[2019-03-01 22:21] LABS: HEMATOCRIT 48.4 % (42.0-52.0); HEMOGLOBIN 16.8 g/dl (13.5-17.5); MEAN CORPUSCULAR HEMOGLOBIN 29.6 pg (27.0-33.0); MEAN CORPUSCULAR HGB CONC 34.7 g/dl (32.0-36.5); MEAN CORPUSCULAR VOLUME 85.2 fl (80.0-96.0); PLATELET COUNT, AUTOMATED 172 10^3/uL (150-450); RED BLOOD COUNT 5.68 10^6/uL (4.30-6.10); WHITE BLOOD COUNT 6.9 10^3/uL (4.0-10.0)
[2019-03-01 22:37] LABS: ALBUMIN 3.3 GM/DL (3.2-5.2); ALT/SGPT 45 U/L (12-78); BILIRUBIN,DIRECT 0.2 MG/DL (0.0-0.2); BILIRUBIN,TOTAL 0.6 MG/DL (0.2-1.0); BLOOD UREA NITROGEN 22 MG/DL (7-18); CALCIUM LEVEL 8.7 MG/DL (8.5-10.1); CARBON DIOXIDE LEVEL 28 MEQ/L (21-32); CHLORIDE LEVEL 105 MEQ/L (98-107); CREATININE FOR GFR 1.08 MG/DL (0.70-1.30); GLOMERULAR FILTRATION RATE > 60.0 (>56); GLUCOSE, FASTING 235 MG/DL (70-100); LIPASE 154 U/L (73-393); POTASSIUM SERUM 3.7 MEQ/L (3.5-5.1); SODIUM LEVEL 140 MEQ/L (136-145); TOTAL PROTEIN 7.1 GM/DL (6.4-8.2)
[2019-03-01 22:57] LABS: ATYPICAL LYMPH 18 % (0-5); EOSINOPHILS 1 % (0-3); LYMPHOCYTES 14 % (16-44); MONOCYTES 1 % (0-5); NEUTROPHILS 66 % (28-66); PLATELET ESTIMATE NORMAL (NORMAL)
--- NOTE | 2019-03-01 23:19 | REPVR ---
EXAM: CT Abdomen and Pelvis Without Contrast EXAM DATE/TIME: 03/01/2019 10:24 PM CLINICAL HISTORY: 58 years old, male; Abdominal pain; Generalized; Additional info: Pain/diabetic who got contrast yesterday TECHNIQUE: Imaging protocol: Computed tomography of the abdomen and pelvis without contrast. Radiation optimization: All CT scans at this facility use at least one of these dose optimization techniques: automated exposure control; mA and/or kV adjustment per patient size (includes targeted exams where dose is matched to clinical indication); or iterative reconstruction. COMPARISON: CT ABD/PEL W/IV CONTRAST ONLY 02/28/2019 6:01 AM FINDINGS: Liver: Coarse hepatic calcifications. The liver attenuation is 32 Hounsfield units and the spleen is 46 Hounsfield units. Gallbladder and bile ducts: Status post cholecystectomy. Pancreas: Normal. No ductal dilation. Spleen: The spleen measures 14.4 cm. Adrenals: Normal. No mass. Kidneys and ureters: Large nonobstructing right renal calculus measuring 6 mm in the lower pole and small nonobstructing left renal calculus. Rounded prominence of the lateral left kidney which is similar to the prior study consistent with a column of Den. Stomach and bowel: Air-fluid level in the rectum suggesting diarrhea. Appendix: A normal small appendix is seen. Intraperitoneal space: Normal. No free air. No significant fluid collection. Vasculature: Normal. No abdominal aortic aneurysm. Lymph nodes: Normal. No enlarged lymph nodes. Bladder: Unremarkable as visualized. Reproductive: Calcification of the vas deferens. Bones/joints: No acute fracture. No dislocation. Soft tissues: Generator implant and subcutaneous tissues of the right flank posteriorly. IMPRESSION: 1. Status post cholecystectomy. 2. Nonobstructing bilateral renal calculi measuring 6 mm on the right. 3. Mild splenomegaly. 4. There is calcification of the vas deferens suggesting diabetes. 5. Fluid throughout colon to the rectum consistent with diarrhea. 6. Mild fatty infiltration of the liver. 7. There has been little change from 02/28/2019 Electronically signed by: Beto Billings On 03/01/2019 23:19:06 PM
[2019-03-02] MEDS ORDERED: METR-265 PO (00:25)
[2019-03-02] MEDS ORDERED: DICL1GEL3 TOP (00:25)
[2019-03-02] MEDS ORDERED: CIPR500S PO (00:25)
[2019-03-02] MEDS ORDERED: LANTINJ4 SC (00:25)
[2019-03-02] MEDS ORDERED: DEXTROSE 50% 50 ML SYRINGE IV PRN (00:45)
[2019-03-02] MEDS ORDERED: GLUCOSE 4 GM CHEW TABLET PO PRN (00:45)
[2019-03-02] MEDS ORDERED: ACETAMINOPHEN TAB 650MG DOSE (2X325MG) PO ONE (00:45)
[2019-03-02] MEDS ORDERED: GLUCAGON FOR INJ 1 MG VIAL (J1610) SC PRN (00:45)
[2019-03-02] MEDS: NS 1,000 ML IV SCH ×4 (01:23→18:11)
[2019-03-02] MEDS: oxyCODONE 5MG TAB PO PRN ×3 (01:39→18:08)
--- NOTE | 2019-03-02 01:51 | HPEPDOC ---
[facility] Medical History & Physical Date of Admission Mar 02, 2019 Date of Service: Mar 02, 2019 Primary Care Physician: Jw Chavez MD Attending Physician: TAMEKA LOUIS MD History and Physical PRIMARY CARE PROVIDER: Dr. Jw Chavez ATTENDING: Dr. Tameka Louis CHIEF COMPLAINT: Intractable Abdominal Pain HISTORY OF PRESENT ILLNESS: Patient is a 58-year-old male presenting with chief complaint of abdominal pain, diarrhea, and bilious emesis since this past Monday. He presented to [facility] emergency department on 02/28, was diagnosed with enterocolitis and discharged home with oral Cipro and Flagyl. He continued to have loose stools (every 15 minutes) and was unable to tolerate PO intake including his antibiotic medications. Of note he also has begun to experience abdominal pain so severe to the point that he passes out for about a minute and needs to be shaken awake to come to. His who is a S[employer] nurse has witnessed these and noted no seizure-like activity. He describes the abdominal pain as sharp intermittent mid gastric pain with radiation to the left upper quadrant. He denies any blood in his emesis or bright red blood in his loose stool, but does admit to dark (black) colored stool. Repeat CT scan performed in the emergency department did not show any new findings, but patient continued to have intractable abdominal pain. PAST MEDICAL HISTORY: Type 2 diabetes Osteoarthritis of hip and knee PAST SURGICAL HISTORY: Wrist surgery Right knee replacement Cholecystectomy (04/2014) Neurostimulator (2014) SOCIAL HISTORY: Drinks 1 beer a month, denies use of tobacco products, denies any marijuana, heroin, cocaine, or PCP use. 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 2 dogs at home. Denies sick contacts. FAMILY HISTORY: FATHER: , DIAGNOSED WITH DIABETES, CANCER MOTHER: , STROKE, DIABETES 2 BROTHER(S) . 1 SON(S) , 1 DAUGHTER(S) 2 SISTER FATHER -BLACK LUNG AND KIDNEY CANCER, MOM-STROKE\NSISTER - COMPLICATIONS FROM DMSISTER - :CANCER. ALLERGIES: Please see below. REVIEW OF SYSTEMS: GENERAL: Denies fevers, chills, recent unexpected weight change, night sweats, hemoptysis HEENT: Denies headache, dizziness, vision changes, hearing loss, sore throat CARDIOVASCULAR: Denies chest pain, palpitations, orthopnea RESPIRATORY: Denies shortness of breath, wheezing, cough GASTROINTESTINAL: Admits to nausea, vomiting, abdominal pain, diarrhea. Denies constipation, bloody stool GENITOURINARY: Denies dysuria,urinary urgency, hematuria. MUSCULOSKELETAL: Denies weakness, stiffness. Admits to chronic musculoskeletal hip and knee pain NEUROLOGICAL: Denies any numbness/tingling, focal weakness, or syncope HOME MEDICATIONS: Please see below. PHYSICAL EXAMINATION: Vitals: (see below) General: No acute distress, laying comfortably in bed. HEENT: Normocephalic, atraumatic. EOMI. No scleral icterus. Moist mucous membranes. No pharyngeal erythema or uvular deviation. Neck: No JVD, lymphadenopathy, or thyromegaly. Cardiac: RRR, Normal S1 and S2, No murmurs, gallops, rubs. Pulm: Clear to auscultation b/l. Symmetric thorax. No wheezing, crackles, rhonchi Abd: Bowel Sounds present. Abdomen is soft, tender to palpation in mid gastric, epigastric, left upper quadrant, moderately distended. Some guarding, no rebound tenderness, no rigidity. No hepatosplenomegaly appreciated. No masses or ecchymosis appreciated. Ext: No edema or cyanosis Neuro: Alert and oriented, CN 312 grossly intact LABORATORY DATA: See below. IMAGING: CT abdomen and pelvis: IMPRESSION: 1. Status post cholecystectomy. 2. Nonobstructing bilateral renal calculi measuring 6 mm on the right. 3. Mild splenomegaly. 4. There is calcification of the vas deferens suggesting diabetes. 5. Fluid throughout colon to the rectum consistent with diarrhea. 6. Mild fatty infiltration of the liver. 7. There has been little change from 02/28/2019 MICROBIOLOGY: Please see below. Positive blood culture from 02/28 significant for gram-positive cocci in clusters, gram-positive rods ASSESSMENT/PLAN: #. Enterocolitis Positive blood culture on 02/28 is likely contaminant so for the time being we will continue the medications he was placed on initially an IV form (ciprofloxacin and metronidazole). GI panel pending, blood culturesx2 pending Clear liquid diet, Reglan for nausea, pantoprazole for GI prophylaxis patient is on Percocet 10 at home, we will continue this for his abdominal pain and adjust as necessary Running fluids at 200 mL per hour, normal electrolytes, vitals, lactic acid but given history we will give this for fluid repletion #. Hemoccult-positive stool Performed at bedside given history, we'll continue to monitor via CBC, may need endoscopy in the future depending on how he progresses during his inpatient stay #. Type 2 diabetes Sliding-scale insulin Patient's a.m. and p.m. Levemir home dosing was 35 and 75 units respectively. We will cut these in half and see what his a.m. glucose is and adjust as needed. #.QTc prolongation on 02/28 EKG - EKG retaken on 03/02 showed normal QTC duration, will continue with cipro but will otherwise attempt to avoid multiple prolonging agents #. Osteoarthritis of knees and hips -Continue with home meds (diclofenac, lidocaine patch) -DVT prophy: RANDAL stockings, heparin SQ Vital Signs Vital Signs Date Time Temp Pulse Resp B/P (MAP) Pulse Ox O2 Delivery O2 Flow Rate FiO2 03/02/19 00:30 88 18 135/67 (89) 03/01/19 22:10 94 Room Air 03/01/19 20:26 96.6 Laboratory Data Labs 24H Laboratory Tests 2 03/01/19 22:09: Nucleated Red Blood Cells % (auto) 0.0, Neutrophils 66, Lymphocytes (Manual) 14L, Monocytes (Manual) 1, Eosinophils (Manual) 1, Atypical Lymphocytes 18H, Platelet Estimate NORMAL, Anion Gap 7L, Glomerular Filtration Rate > 60.0, Lactic Acid Level 1.6, Calcium Level 8.7, Aspartate Amino Transf (AST/SGOT) 50H, Alanine Aminotransferase (ALT/SGPT) 45, Alkaline Phosphatase 71, Total Bilirubin 0.6, Direct Bilirubin 0.2, Total Protein 7.1, Albumin 3.3, Albumin/Globulin Ratio 0.87L, Lipase 154 CBC/BMP Laboratory Tests 03/01/19 22:09 Red Blood Count 5.68, Mean Corpuscular Volume 85.2, Mean Corpuscular Hemoglobin 29.6, Mean Corpuscular Hemoglobin Concent 34.7, Red Cell Distribution Width 13.0 Microbiology Microbiology 03/02/19 Blood Culture, Received Pending Home Medications Scheduled Bimatoprost (Lumigan) 50 Drop/2.5 Ml Alicia, 1 DROP OU DAILY Ciprofloxacin (Cipro) 500 Mg/5 Ml Destiney.mc.rec, 500 MG PO BID PRESCRIBED 02/28/19 FOR 14 DAYS Insulin Glargine,Hum.rec.anlog (Lantus Solostar) 100 Unit/1 Ml Insuln.pen, 75 UNITS SQ QHS Insulin Glargine,Hum.rec.anlog (Lantus Solostar) 100 Unit/1 Ml Insuln.pen, 35 UNITS SC QAM Lidocaine (Lidoderm) 5% Adh..patch, 2 PATCH TD DAILY APPLIES TO BACK; ON 12 HOURS, OFF 12 HOURS Metronidazole (Metronidazole) 500 Mg Tablet, 500 MG PO Q8H PRESCRIBED 02/28/19 FOR 7 DAYS Sitagliptin Phosphate (Januvia) 100 Mg Tab, 100 MG PO DAILY Scheduled PRN Diclofenac Sodium (Diclofenac Sodium) 1% 100GM Gel..gram., 1 APLCT TOP TID PRN for PAIN APPLIES TO KNEES/HIP Lidocaine (Lidocaine) 120 Gm Oint...g., 1 APLCT TOP Q4H PRN for PAIN APPLIES TO FEET Oxycodone HCl/Acetaminophen (Oxycodone-Acetaminophen 10-325) 1 Each Tablet, 1 TAB PO Q4H PRN for PAIN Allergies Coded Allergies: tramadol (Verified Adverse Reaction, Severe, DYSPNEA W/HIGH DOSE >6/DAY, 11/06/18) amitriptyline (Verified Adverse Reaction, Intermediate, HALLUCINATIONS, 03/02/19) duloxetine (Verified Adverse Reaction, Intermediate, HALLUCINATIONS, 03/02/19) gabapentin (Verified Adverse Reaction, Intermediate, HALLUCINATIONS, 03/02/19) morphine (Verified Adverse Reaction, Intermediate, NAUSEA/VOMITING, 03/02/19) canagliflozin (Verified Adverse Reaction, Mild, DIZZINESS, 11/06/18) metformin (Verified Adverse Reaction, Mild, HICCUPS, 03/02/19) A-FIB/CHADSVASC A-FIB History Current/History of A-Fib/PAF?: No GME ATTESTATION GME ATTESTATION My faculty preceptor for this patient encounter was physically present during the encounter and was fully available. All aspects of the patient interview, examination, medical decision making process, and medical care plan development were reviewed and approved by the faculty preceptor. The faculty preceptor is aware and concurs with the plan as stated in the body of this note and will attest to such by his/her cosignature. ATTENDING NOTE I personally performed a history and physical examination of the patient and discussed the management with the resident. I reviewed the resident's note and a gree with the documented findings and plan of care. JW ISABEL DO Mar 02, 2019 01:51 TAMEKA LOUIS MD Mar 03, 2019 19:42
[2019-03-02 02:00] VITALS: BP 148/84
[2019-03-02] MEDS: CIPROFLOXACIN 400 MG in APPROPRIATE DILUENT 1 EA IV SCH ×2 (02:34→16:07)
[2019-03-02] MEDS ORDERED: SODIUM CHLORIDE NASAL 0.65% SPRAY BTL (OCEAN) PRN (03:00)
[2019-03-02] MEDS: metroNIDAZOLE 500 MG in APPROPRIATE DILUENT 1 EA IV SCH ×3 (04:07→20:19)
[2019-03-02] MEDS: HEPARIN SOD (PORCINE) 5000 UNITS/ML VIAL SC SCH ×3 (05:42→21:50)
[2019-03-02 06:00] VITALS: BP 128/64
--- NOTE | 2019-03-02 06:16 | ECGEPIP ---
[facility] Test Date: 2019-03-02 Pat Name: KHANH GEORGE Department: Room: 01 Gender: Male Delivery Analyst: : 1960 Requested By: JW ISABEL Order Number: [id number] Reading MD: Dee Pérez Measurements Intervals [place] Rate: 86 P: 159 KS: 361 QRS: -18 QRSD: 108 T: 22 QT: 370 QTc: 443 Interpretive Statements Artifact DIFFICULT TO SEE ATRAIL ACTIVITY BUT POSSIBLE SINUS INCOMPLETE RIGHT BUNDLE BRANCH BLOCK MODERATE VOLTAGE CRITERIA FOR LVH, CONSIDER NORMAL VARIANT NONSPECIFIC ST-WAVE ABNORMALITY Left axis deviation QT 400 msec SIMILAR TO 01/2919 INCLUDING ARTIFACT Electronically Signed on 03-02-2019 6:15:39 EDT by Dee Pérez
[2019-03-02 06:38] LABS: BLOOD UREA NITROGEN 20 MG/DL (7-18); CARBON DIOXIDE LEVEL 25 MEQ/L (21-32); CHLORIDE LEVEL 108 MEQ/L (98-107); CREATININE FOR GFR 0.92 MG/DL (0.70-1.30); GLOMERULAR FILTRATION RATE > 60.0 (>56); GLUCOSE, FASTING 195 MG/DL (70-100); POTASSIUM SERUM 3.4 MEQ/L (3.5-5.1); SODIUM LEVEL 139 MEQ/L (136-145)
[2019-03-02 06:43] LABS: HEMATOCRIT 43.8 % (42.0-52.0); HEMOGLOBIN 15.1 g/dl (13.5-17.5); MEAN CORPUSCULAR HEMOGLOBIN 29.5 pg (27.0-33.0); MEAN CORPUSCULAR HGB CONC 34.5 g/dl (32.0-36.5); MEAN CORPUSCULAR VOLUME 85.5 fl (80.0-96.0); PLATELET COUNT, AUTOMATED 140 10^3/uL (150-450); RED BLOOD COUNT 5.12 10^6/uL (4.30-6.10); WHITE BLOOD COUNT 5.9 10^3/uL (4.0-10.0)
[2019-03-02] MEDS: PANTOPRAZOLE 40MG INJ (PROTONIX) (C9113) IV SCH ×2 (10:30→21:46)
[2019-03-02] MEDS: LIDOCAINE 5% (LIDODERM) PATCH TD SCH (10:32)
[2019-03-02] MEDS: DICLOFENAC EPOLAMINE 1.3 % PATCH TOP SCH ×2 (10:33→21:46)
[2019-03-02] MEDS: LEVEMIR (INSULIN DETEMIR) 1 UNITS/0.01ML SC SCH (10:34)
[2019-03-02] MEDS: HumaLOG INSULIN (NovoLOG) PER UNIT SC SCH ×4 (10:35→21:00)
[2019-03-02 14:00] VITALS: BP 132/65
[2019-03-02] MEDS ORDERED: POTASSIUM CHLORIDE 10 MEQ SR TABLET PO ONE (15:00)
[2019-03-02] MEDS: NITAZOXANIDE 500 MG TAB (ALINIA) PO SCH ×2 (15:53→21:47)
--- NOTE | 2019-03-02 16:35 | IPN ---
DATE: 03/02/2019 SUBJECTIVE: The patient admitted because of abdominal pain, cramping, diarrhea, several days; duration. Could not eat or drink sufficient to maintain hydration state. He is here for this problem, being admitted yesterday. He is maintained on some insulin for his chronic type 2 diabetes, nausea controlled with metoclopramide, oxycodone for abdominal pain. He also was seen by the pain clinic in the community. Today he is somewhat better, although he is still having four to five bowel movements and still only half the day gone by. Yesterday he had too numerous to count stool episodes. He had a positive gastrointestinal (GI) panel, which organisms enterotoxigenic Escherichia (E) coli and Shiga-like toxin producing E. coli not 0157:H7. Also demonstrated Cryptosporidium. Objective data as noted in gastrointestinal (GI) panel. White count is normal at 5900. Chemistries: BUN is 20, creatinine 0.92. His potassium is down to 3.4. Abdomen nontender. Bowel sounds present. No guarding or rebound. Lungs clear to auscultation. Heart regular rhythm no murmur. ASSESSMENT: 1. Gastroenteritis with Escherichia (E) coli and Cryptosporidium. Apparently two different strains of E. coli. 2. Diabetes mellitus, chronic, stable, on coverage and tolerating clear liquid diet at this point. PLAN: Continue clear liquid diet. Continue sliding-scale coverage plus basal coverage for his diabetes. I think at this point we can give him some oral potassium repletion. Will treat the E. coli with azithromycin 500 mg and treat the Cryptosporidium with nitazoxanide if available from the pharmacy. These are generally self-limiting conditions in normal individuals, but Mr. Hammond has poorly controlled diabetes mellitus; therefore, we would consider him to be somewhat immune compromised.
[2019-03-02] MEDS: LEVEMIR (INSULIN DETEMIR) 1 UNITS/0.01ML SQ SCH (21:48)
[2019-03-02] MEDS: **NOTE PATIENT COMMENT** MISC XX SCH (21:48)
[2019-03-02 22:00] VITALS: BP 155/89
[2019-03-03] MEDS: CIPROFLOXACIN 400 MG in APPROPRIATE DILUENT 1 EA IV SCH ×2 (02:13→16:05)
[2019-03-03] MEDS: oxyCODONE 5MG TAB PO PRN ×4 (02:16→17:59)
[2019-03-03] MEDS: metroNIDAZOLE 500 MG in APPROPRIATE DILUENT 1 EA IV SCH ×2 (03:28→13:02)
[2019-03-03] MEDS: NS 1,000 ML IV SCH ×2 (03:28→16:05)
[2019-03-03] MEDS: HEPARIN SOD (PORCINE) 5000 UNITS/ML VIAL SC SCH ×2 (05:07→16:06)
[2019-03-03 06:00] VITALS: BP 136/77
[2019-03-03 06:16] LABS: HEMATOCRIT 40.9 % (42.0-52.0); HEMOGLOBIN 14.2 g/dl (13.5-17.5); MEAN CORPUSCULAR HEMOGLOBIN 29.4 pg (27.0-33.0); MEAN CORPUSCULAR HGB CONC 34.7 g/dl (32.0-36.5); MEAN CORPUSCULAR VOLUME 84.7 fl (80.0-96.0); PLATELET COUNT, AUTOMATED 129 10^3/uL (150-450); RED BLOOD COUNT 4.83 10^6/uL (4.30-6.10); WHITE BLOOD COUNT 4.9 10^3/uL (4.0-10.0)
[2019-03-03 06:32] LABS: BLOOD UREA NITROGEN 12 MG/DL (7-18); CALCIUM LEVEL 7.5 MG/DL (8.5-10.1); CARBON DIOXIDE LEVEL 24 MEQ/L (21-32); CHLORIDE LEVEL 111 MEQ/L (98-107); CREATININE FOR GFR 0.76 MG/DL (0.70-1.30); GLOMERULAR FILTRATION RATE > 60.0 (>56); GLUCOSE, FASTING 152 MG/DL (70-100); POTASSIUM SERUM 3.3 MEQ/L (3.5-5.1); SODIUM LEVEL 141 MEQ/L (136-145)
[2019-03-03] MEDS: PANTOPRAZOLE 40MG INJ (PROTONIX) (C9113) IV SCH (08:08)
[2019-03-03] MEDS: AZITHROMYCIN 250 MG TAB PO SCH (08:08)
[2019-03-03] MEDS: NITAZOXANIDE 500 MG TAB (ALINIA) PO SCH ×2 (08:08→20:42)
[2019-03-03] MEDS: LIDOCAINE 5% (LIDODERM) PATCH TD SCH (08:09)
[2019-03-03] MEDS: HumaLOG INSULIN (NovoLOG) PER UNIT SC SCH ×4 (08:09→21:00)
[2019-03-03] MEDS: LEVEMIR (INSULIN DETEMIR) 1 UNITS/0.01ML SC SCH (08:09)
[2019-03-03] MEDS: DICLOFENAC EPOLAMINE 1.3 % PATCH TOP SCH ×2 (08:10→20:43)
[2019-03-03 14:00] VITALS: BP 156/85
--- NOTE | 2019-03-03 16:48 | IPNPDOC ---
Subjective Date Seen The patient was seen on 03/03/19. Subjective Chief Complaint/HPI improved appetite Constitutional: Denies: Chills Eyes: Denies: Pain ENT: Denies: Head Aches Skin: Denies: Rash, Lesions Pulmonary: Denies: Dyspnea, Cough Cardiovascular: Denies: Chest Pain, Palpitations Gastrointestinal: Denies: Nausea, Vomiting Objective Physical Examination General Exam: Positive: Alert Eye Exam: Positive: PERRLA Neck Exam: Negative: JVD Telemetry: Positive: No significant arrhythmia Abdomen Exam: Positive: Normal bowel sounds Extremity Exam: Negative: Edema Assessment /Plan Problems (1) Enterocolitis Status: Acute Problem Text: D2/3 azithro/ D2/3 nitazo 03/03 given coverage c azithro/nitazo and risk of HUS, dc c/m 03/02: GI panel: Organism 1 ENTEROTOXIGENIC E.COLI LT/ST Enterotoxigenic E.coli (ETEC) is most commonly referred to as travelers' diarrhea. ETEC are transmitted fecal-oral route and are becoming more common as a food bourne pathogen. ETEC may be carried asymptomatically but usually produce watery diarrhea. Infections usually resolve in a few days with supportive care (rehydration). Organism 2 SHIGA-LIKE E.COLI NOT O157 Shiga-like toxin producing E.coli (STEC) includes E.coli 0157. STEC are a primary cause of bloody diarrhea and can progress to a potentially fatal condition known as hemolytic uremic syndrome (HUS). The very young and very old are especially susceptible. STEC are important foodbourne pathogens. Infections may also be waterbourne, transmitted [id number] or via contact with animals (especially cattle). Antimicrobial therapy for STEC may lead to an increased risk for HUS. Organism 3 CRYPTOSPORIDIUM SP Cryptosporidium occurs following ingestion of chlorine- tolerant oocysts which are seen in fecal material and can contaminate drinking water, recreational water, or food. Illness is generally short-term gastroenteritis that resolves without treatment. However, severe illness is possible in immunocompromised individuals. (2) DM type 2 (diabetes mellitus, type 2) Problem Text: HD glar 35/75, josh 100 03/03 BG mid 100s on det Plan/VTE VTE Prophylaxis Ordered?: Yes VS, I&O, 24H, Fishbone Vital Signs/I&O Vital Signs Date Time Temp Pulse Resp B/P (MAP) Pulse Ox O2 Delivery O2 Flow Rate FiO2 03/03/19 13:32 18 03/03/19 06:00 97.2 70 136/77 (96) 98 03/02/19 01:52 Room Air I&O- Last 24 Hours up to 6 AM 03/03/19 06:00 Intake Total 3627 ml Balance 3627 ml Laboratory Data 24H LABS Laboratory Tests 2 03/02/19 20:52: Bedside Glucose (Misc Panel) 162H 03/03/19 05:37: Nucleated Red Blood Cells % (auto) 0.0, Anion Gap 6L, Glomerular Filtration Rate > 60.0, Blood Urea Nitrogen 12, Creatinine 0.76, Sodium Level 141, Potassium Level 3.3L, Chloride Level 111H, Carbon Dioxide Level 24, Calcium Level 7.5L 03/03/19 12:25: Bedside Glucose (Misc Panel) 147H CBC/BMP Laboratory Tests 03/03/19 05:37 Red Blood Count 4.83, Mean Corpuscular Volume 84.7, Mean Corpuscular Hemoglobin 29.4, Mean Corpuscular Hemoglobin Concent 34.7, Red Cell Distribution Width 13.1, Calcium Level 7.5 L Microbiology Microbiology 03/02/19 Blood Culture - Preliminary, Resulted No growth after 24 hours . All specim... 03/02/19 Blood Culture - Preliminary, Resulted No growth after 24 hours . All specim... 03/02/19 Blood Culture - Preliminary, Resulted No growth after 24 hours . All specim... 03/02/19 Gastrointestinal Tract Panel (PCR) - Final, Complete Enterotoxigenic E.coli Lt/St Shiga-Like E.coli Not O157 Cryptosporidium Sp Raúl Jimenez M.D. Mar 03, 2019 16:48
[2019-03-03] MEDS ORDERED: POTASSIUM CHLORIDE 10 MEQ SR TABLET PO ONE (17:30)
[2019-03-03] MEDS: LR 1,000 ML IV SCH (18:00)
[2019-03-03] MEDS: LEVEMIR (INSULIN DETEMIR) 1 UNITS/0.01ML SQ SCH (20:42)
[2019-03-03] MEDS: **NOTE PATIENT COMMENT** MISC XX SCH (20:43)
[2019-03-03 22:00] VITALS: BP 156/84
[2019-03-04] MEDS: METOCLOPRAMIDE INJ 10MG/2ML VIAL (J2765) IV PRN ×4 (01:36→23:23)
[2019-03-04] MEDS: oxyCODONE 5MG TAB PO PRN ×4 (01:41→20:10)
[2019-03-04 06:00] VITALS: BP 152/83
[2019-03-04 07:10] LABS: HEMATOCRIT 38.6 % (42.0-52.0); HEMOGLOBIN 13.6 g/dl (13.5-17.5); MEAN CORPUSCULAR HEMOGLOBIN 28.9 pg (27.0-33.0); MEAN CORPUSCULAR HGB CONC 35.2 g/dl (32.0-36.5); PLATELET COUNT, AUTOMATED 136 10^3/uL (150-450); RED BLOOD COUNT 4.71 10^6/uL (4.30-6.10)
[2019-03-04 07:25] LABS: BLOOD UREA NITROGEN 6 MG/DL (7-18); CALCIUM LEVEL 7.7 MG/DL (8.5-10.1); CARBON DIOXIDE LEVEL 24 MEQ/L (21-32); CHLORIDE LEVEL 111 MEQ/L (98-107); CREATININE FOR GFR 0.73 MG/DL (0.70-1.30); GLOMERULAR FILTRATION RATE > 60.0 (>56); GLUCOSE, FASTING 104 MG/DL (70-100); POTASSIUM SERUM 3.4 MEQ/L (3.5-5.1); SODIUM LEVEL 140 MEQ/L (136-145)
[2019-03-04] MEDS: LIDOCAINE 5% (LIDODERM) PATCH TD SCH (09:00)
[2019-03-04] MEDS ORDERED: PANTOPRAZOLE 20 MG TAB PO SCH (09:00)
[2019-03-04] MEDS: DICLOFENAC EPOLAMINE 1.3 % PATCH TOP SCH ×2 (09:00→20:09)
[2019-03-04] MEDS: LEVEMIR (INSULIN DETEMIR) 1 UNITS/0.01ML SC SCH (09:02)
[2019-03-04] MEDS: PANTOPRAZOLE 40MG TAB (PROTONIX) PO SCH (09:03)
[2019-03-04] MEDS: AZITHROMYCIN 250 MG TAB PO SCH (09:03)
[2019-03-04] MEDS: HumaLOG INSULIN (NovoLOG) PER UNIT SC SCH ×4 (09:03→21:00)
[2019-03-04] MEDS: NITAZOXANIDE 500 MG TAB (ALINIA) PO SCH ×2 (09:03→20:09)
[2019-03-04] MEDS: LR 1,000 ML IV SCH (11:04)
--- NOTE | 2019-03-04 11:56 | IPNPDOC ---
Subjective Date Seen The patient was seen on 03/04/19. Subjective Chief Complaint/HPI enterocolitis Events since last encounter Patient noted 20+ loose stools yesterday. Down to 6-7 stools today. Continues with waves of nausea. Constitutional: Denies: Chills, Fever, Night Sweats Pulmonary: Denies: Dyspnea, Cough Cardiovascular: Denies: Chest Pain, Palpitations, Orthopnea, Paroxysmal Noc. Dyspnea, Lt Headedness Gastrointestinal: Reports: Nausea, Abdominal Pain, Diarrhea; Denies: Vomiting Genitourinary: Denies: Dysuria, Frequency Objective Physical Examination General Exam: Positive: Alert Eye Exam: Positive: PERRLA Neck Exam: Negative: JVD Telemetry: Positive: No significant arrhythmia Abdomen Exam: Positive: Normal bowel sounds Extremity Exam: Negative: Edema Psych Exam: Positive: Mental status NL, Oriented x 3 Assessment /Plan Problems (1) Enterocolitis Status: Acute Problem Text: 03/04/19: prn meds for nausea. Continue IVF. tolerating small amounts of po D2/3 azithro/ D3/3 nitazo 03/03 given coverage c azithro/nitazo and risk of HUS, dc c/m 03/02: GI panel: Organism 1 ENTEROTOXIGENIC E.COLI LT/ST Enterotoxigenic E.coli (ETEC) is most commonly referred to as travelers' diarrhea. ETEC are transmitted fecal-oral route and are becoming more common as a food bourne pathogen. ETEC may be carried asymptomatically but usually produce watery diarrhea. Infections usually resolve in a few days with supportive care (rehydration). Organism 2 SHIGA-LIKE E.COLI NOT O157 Shiga-like toxin producing E.coli (STEC) includes E.coli 0157. STEC are a primary cause of bloody diarrhea and can progress to a potentially fatal condition known as hemolytic uremic syndrome (HUS). The very young and very old are especially susceptible. STEC are important foodbourne pathogens. Infections may also be waterbourne, transmitted [id number] or via contact with animals (especially cattle). Antimicrobial therapy for STEC may lead to an increased risk for HUS. Organism 3 CRYPTOSPORIDIUM SP Cryptosporidium occurs following ingestion of chlorine- tolerant oocysts which are seen in fecal material and can contaminate drinking water, recreational water, or food. Illness is generally short-term gastroenteritis that resolves without carlitos tment. However, severe illness is possible in immunocompromised individuals. (2) DM type 2 (diabetes mellitus, type 2) Problem Text: HD glar 35/75, josh 100 03/03 BG mid 100s on det Plan/VTE VTE Prophylaxis Ordered?: Yes VS, I&O, 24H, Fishbone Vital Signs/I&O Vital Signs Date Time Temp Pulse Resp B/P (MAP) Pulse Ox O2 Delivery O2 Flow Rate FiO2 03/04/19 06:21 18 03/04/19 06:00 98.8 71 152/83 (106) 97 03/02/19 01:52 Room Air I&O- Last 24 Hours up to 6 AM 03/04/19 06:00 Intake Total 4660 ml Balance 4660 ml Laboratory Data 24H LABS Laboratory Tests 2 03/03/19 12:25: Bedside Glucose (Misc Panel) 147H 03/03/19 17:05: Bedside Glucose (Misc Panel) 225H 03/03/19 20:05: Bedside Glucose (Misc Panel) 183H 03/04/19 06:26: Nucleated Red Blood Cells % (auto) 0.0, Anion Gap 5L, Glomerular Filtration Rate > 60.0, Blood Urea Nitrogen 6L, Creatinine 0.73, Sodium Level 140, Potassium Level 3.4L, Chloride Level 111H, Carbon Dioxide Level 24, Calcium Level 7.7L 03/04/19 11:18: Bedside Glucose (Misc Panel) 185H CBC/BMP Laboratory Tests 03/04/19 06:26 Red Blood Count 4.71, Mean Corpuscular Volume 82.0, Mean Corpuscular Hemoglobin 28.9, Mean Corpuscular Hemoglobin Concent 35.2, Red Cell Distribution Width 13.2, Calcium Level 7.7 L Microbiology Microbiology 03/02/19 Blood Culture - Preliminary, Resulted No Growth after 48 hours. All Specime... 03/02/19 Blood Culture - Preliminary, Resulted No Growth after 48 hours. All Specime... 03/02/19 Blood Culture - Preliminary, Resulted No Growth after 48 hours. All Specime... 03/02/19 Gastrointestinal Tract Panel (PCR) - Final, Complete Enterotoxigenic E.coli Lt/St Shiga-Like E.coli Not O157 Cryptosporidium Sp Enriqueta Melendrez COGNOS ADMINISTRATOR Mar 04, 2019 11:56 Raúl Jimenez M.D. Mar 04, 2019 18:30
[2019-03-04 14:00] VITALS: BP 158/86
[2019-03-04] MEDS: LEVEMIR (INSULIN DETEMIR) 1 UNITS/0.01ML SQ SCH (20:10)
[2019-03-04] MEDS: **NOTE PATIENT COMMENT** MISC XX SCH (21:00)
[2019-03-04 22:00] VITALS: BP 145/86
[2019-03-05] MEDS: oxyCODONE 5MG TAB PO PRN ×4 (00:13→17:37)
[2019-03-05] MEDS: LR 1,000 ML IV SCH (02:52)
[2019-03-05 06:00] VITALS: BP 159/67
[2019-03-05] MEDS: METOCLOPRAMIDE INJ 10MG/2ML VIAL (J2765) IV PRN ×2 (06:40→13:01)
[2019-03-05 07:05] LABS: HEMOGLOBIN 13.5 g/dl (13.5-17.5); MEAN CORPUSCULAR HEMOGLOBIN 28.4 pg (27.0-33.0); MEAN CORPUSCULAR HGB CONC 34.6 g/dl (32.0-36.5); MEAN CORPUSCULAR VOLUME 82.1 fl (80.0-96.0); PLATELET COUNT, AUTOMATED 141 10^3/uL (150-450); RED BLOOD COUNT 4.75 10^6/uL (4.30-6.10)
[2019-03-05 07:32] LABS: BLOOD UREA NITROGEN 6 MG/DL (7-18); CALCIUM LEVEL 7.9 MG/DL (8.5-10.1); CARBON DIOXIDE LEVEL 25 MEQ/L (21-32); CHLORIDE LEVEL 112 MEQ/L (98-107); CREATININE FOR GFR 0.63 MG/DL (0.70-1.30); GLOMERULAR FILTRATION RATE > 60.0 (>56); GLUCOSE, FASTING 104 MG/DL (70-100); POTASSIUM SERUM 3.3 MEQ/L (3.5-5.1); SODIUM LEVEL 141 MEQ/L (136-145)
[2019-03-05] MEDS: LEVEMIR (INSULIN DETEMIR) 1 UNITS/0.01ML SC SCH (08:23)
[2019-03-05] MEDS: AZITHROMYCIN 250 MG TAB PO SCH (08:24)
[2019-03-05] MEDS: PANTOPRAZOLE 40MG TAB (PROTONIX) PO SCH (08:24)
[2019-03-05] MEDS: HumaLOG INSULIN (NovoLOG) PER UNIT SC SCH ×4 (08:24→20:14)
[2019-03-05] MEDS: DICLOFENAC EPOLAMINE 1.3 % PATCH TOP SCH ×2 (08:25→20:25)
[2019-03-05] MEDS: LIDOCAINE 5% (LIDODERM) PATCH TD SCH (08:25)
[2019-03-05] MEDS ORDERED: POTASSIUM CHLORIDE 10 MEQ SR TABLET PO ONE (10:30)
--- NOTE | 2019-03-05 10:32 | IPNPDOC ---
Subjective Date Seen The patient was seen on 03/05/19. Subjective Chief Complaint/HPI enterocolitis Events since last encounter Stools have lessened in frequency and have started to solidify. Constitutional: Denies: Chills, Fever, Night Sweats Pulmonary: Denies: Dyspnea, Cough Cardiovascular: Denies: Chest Pain, Palpitations, Orthopnea, Paroxysmal Noc. Dyspnea, Lt Headedness Gastrointestinal: Reports: Nausea, Abdominal Pain, Diarrhea; Denies: Vomiting, Constipation Objective Physical Examination General Exam: Positive: Alert Eye Exam: Positive: PERRLA Neck Exam: Negative: JVD Telemetry: Positive: No significant arrhythmia Abdomen Exam: Positive: Normal bowel sounds Extremity Exam: Negative: Edema Psych Exam: Positive: Mental status NL, Oriented x 3 Assessment /Plan Problems (1) Enterocolitis Status: Acute Problem Text: D3/ azithro/ on 03/04 finished nitazo BID x 3D 03/05 symptoms slowly improving. Anticipate Dc home in 1-2 days. 03/04/19: prn meds for nausea. Continue IVF. tolerating small amounts of po 03/03 given coverage c azithro/nitazo and risk of HUS, dc c/m 03/02: GI panel: Organism 1 ENTEROTOXIGENIC E.COLI LT/ST Enterotoxigenic E.coli (ETEC) is most commonly referred to as travelers' diarrhea. ETEC are transmitted fecal-oral route and are becoming more common as a food bourne pathogen. ETEC may be carried asymptomatically but usually produce watery diarrhea. Infections usually resolve in a few days with supportive care (rehydration). Organism 2 SHIGA-LIKE E.COLI NOT O157 Shiga-like toxin producing E.coli (STEC) includes E.coli 0157. STEC are a primary cause of bloody diarrhea and can progress to a potentially fatal condition known as hemolytic uremic syndrome (HUS). The very young and very old are especially susceptible. STEC are important foodbourne pathogens. Infections may also be waterbourne, transmitted qrfwrz-ra-hecobo or via contact with animals (especially cattle). Antimicrobial therapy for STEC may lead to an increased risk for HUS. Organism 3 CRYPTOSPORIDIUM SP Cryptosporidium occurs following ingestion of chlorine- tolerant oocysts which are seen in fecal material and can contaminate drinking water, recreational water, or food. Illness is generally short-term gastroenteritis that resolves without malathi atment. However, severe illness is possible in immunocompromised individuals. (2) DM type 2 (diabetes mellitus, type 2) Problem Text: HD glar 35/75, josh 100 03/03 BG mid 100s on det Plan/VTE VTE Prophylaxis Ordered?: Yes VS, I&O, 24H, Fishbone Vital Signs/I&O Vital Signs Date Time Temp Pulse Resp B/P (MAP) Pulse Ox O2 Delivery O2 Flow Rate FiO2 03/05/19 10:05 16 03/05/19 06:00 97.9 64 159/67 (97) 98 03/02/19 01:52 Room Air I&O- Last 24 Hours up to 6 AM 03/05/19 06:00 Intake Total 2810 ml Balance 2810 ml Laboratory Data 24H LABS Laboratory Tests 2 03/04/19 11:18: Bedside Glucose (Misc Panel) 185H 03/04/19 16:19: Bedside Glucose (Misc Panel) 141H 03/04/19 20:20: Bedside Glucose (Misc Panel) 173H 03/05/19 06:19: Nucleated Red Blood Cells % (auto) 0.0, Anion Gap 4L, Glomerular Filtration Rate > 60.0, Blood Urea Nitrogen 6L, Creatinine 0.63L, Sodium Level 141, Potassium Level 3.3L, Chloride Level 112H, Carbon Dioxide Level 25, Calcium Level 7.9L CBC/BMP Laboratory Tests 03/05/19 06:19 Red Blood Count 4.75, Mean Corpuscular Volume 82.1, Mean Corpuscular Hemoglobin 28.4, Mean Corpuscular Hemoglobin Concent 34.6, Red Cell Distribution Width 13.4, Calcium Level 7.9 L Microbiology Microbiology 03/02/19 Blood Culture - Preliminary, Resulted No Growth after 72 hours. All specime... 03/02/19 Blood Culture - Preliminary, Resulted No Growth after 72 hours. All specime... 03/02/19 Blood Culture - Preliminary, Resulted No Growth after 72 hours. All specime... 03/02/19 Gastrointestinal Tract Panel (PCR) - Final, Complete Enterotoxigenic E.coli Lt/St Shiga-Like E.coli Not O157 Cryptosporidium Sp Enriqueta Melendrez Mar 05, 2019 10:31 Raúl Jimenez M.D. Mar 05, 2019 19:32
[2019-03-05] MEDS: METOCLOPRAMIDE 5 MG TAB PO PRN (13:34)
[2019-03-05 14:00] VITALS: BP 150/78
[2019-03-05] MEDS: **NOTE PATIENT COMMENT** MISC XX SCH (20:25)
[2019-03-05] MEDS: LEVEMIR (INSULIN DETEMIR) 1 UNITS/0.01ML SQ SCH (20:25)
[2019-03-05 22:00] VITALS: BP 156/91
[2019-03-06] MEDS: METOCLOPRAMIDE 5 MG TAB PO PRN (00:24)
[2019-03-06] MEDS: oxyCODONE 5MG TAB PO PRN ×3 (00:24→09:25)
[2019-03-06 06:00] VITALS: BP 142/84
[2019-03-06 06:02] LABS: HEMATOCRIT 39.2 % (42.0-52.0); HEMOGLOBIN 13.7 g/dl (13.5-17.5); MEAN CORPUSCULAR HEMOGLOBIN 28.5 pg (27.0-33.0); MEAN CORPUSCULAR HGB CONC 34.9 g/dl (32.0-36.5); MEAN CORPUSCULAR VOLUME 81.5 fl (80.0-96.0); PLATELET COUNT, AUTOMATED 154 10^3/uL (150-450); RED BLOOD COUNT 4.81 10^6/uL (4.30-6.10); WHITE BLOOD COUNT 7.9 10^3/uL (4.0-10.0)
[2019-03-06 06:18] LABS: BLOOD UREA NITROGEN 10 MG/DL (7-18); CALCIUM LEVEL 8.1 MG/DL (8.5-10.1); CARBON DIOXIDE LEVEL 25 MEQ/L (21-32); CHLORIDE LEVEL 111 MEQ/L (98-107); GLOMERULAR FILTRATION RATE > 60.0 (>56); GLUCOSE, FASTING 112 MG/DL (70-100); POTASSIUM SERUM 3.3 MEQ/L (3.5-5.1); SODIUM LEVEL 141 MEQ/L (136-145)
[2019-03-06] MEDS: DICLOFENAC EPOLAMINE 1.3 % PATCH TOP SCH (09:00)
[2019-03-06] MEDS: LIDOCAINE 5% (LIDODERM) PATCH TD SCH (09:20)
[2019-03-06] MEDS: PANTOPRAZOLE 40MG TAB (PROTONIX) PO SCH (09:20)
[2019-03-06] MEDS: AZITHROMYCIN 250 MG TAB PO SCH (09:20)
[2019-03-06] MEDS: HumaLOG INSULIN (NovoLOG) PER UNIT SC SCH (09:21)
[2019-03-06] MEDS: LEVEMIR (INSULIN DETEMIR) 1 UNITS/0.01ML SC SCH (09:22)
[2019-03-06] MEDS ORDERED: CVS1CAP PO (10:30)
[2019-03-06] MEDS ORDERED: POTA1TAB14 PO (10:33)
--- NOTE | 2019-03-06 18:22 | DSES ---
DATE OF ADMISSION: 03/02/2019 DATE OF DISCHARGE: 03/06/2019 PRIMARY CARE PROVIDER: Dr. Ceferino Chavez ATTENDING PHYSICIAN: Dr. El Napoles HISTORY OF PRESENT ILLNESS: This is a 58-year-old gentleman who presented to [facility] Emergency Department for complaints of abdominal pain, diarrhea, and bilious emesis. He had presented two days prior to this admission with Enterocolitis and discharged home on Cipro and Flagyl. He failed his outpatient treatments and was subsequently admitted to the family medicine service. HOSPITAL COURSE: The patient is status post CT abdomen and pelvis which noted nonobstructing bilateral renal calculi measuring 6 mm on the right, mild splenomegaly, fluid throughout the colon consistent with diarrhea, and mild fatty infiltration of the liver. Gastrointestinal (GI) panel proved positive for enterotoxigenic Escherichia (E) coli, Shiga-like toxin-producing E. coli and Cryptosporidium. The patient was placed on ciprofloxacin as well as nitazoxanide for three days. The patient tolerated those medications well. His diarrhea slowly resolved and the patient is down to 2-3 soft stools per day. The patient has remained afebrile. He has had some electrolyte disturbance secondary to his diarrhea with potassium in the 3.3 to 3.4 range. He has tolerated supplementation well. PHYSICAL EXAMINATION: Today, vital signs are stable. He is afebrile. HEENT: Neck is supple without lymphadenopathy or jugular venous distention (JVD). CARDIOVASCULAR: Heart rate and rhythm are regular. PULMONARY: Lungs are clear to auscultation bilaterally. ABDOMEN: Soft and nontender with positive bowel sounds times all four quadrants. ASSESSMENT: 1. Enterotoxigenic Escherichia (E) coli with Cryptosporidium gastroenteritis. 2. Hypokalemia. 3. Enterocolitis. 4. Diabetes. 5. Hypertension. PLAN: The patient will be discharged home. Diet is as a consistent-carbohydrate, as tolerated diet. Activity is as tolerated. He will followup with primary care provider (PCP) within the next 5-7 days. MEDICATIONS: Are as follows: - lactobacillus probiotic with meals for the next 10 days - potassium chloride 20 mEq by mouth daily for the next seven days - Lumigan eye drops one drop in each eye daily - diclofenac gel topically three times a day as needed - Lantus SoloStar 75 units subcutaneous at bedtime and 35 units every morning - lidocaine patch transdermally daily - oxycodone 10/325 one tablet by mouth every four hours as needed for pain - Januvia 100 mg by mouth daily The patient is discharged in stable and satisfactory condition with no further questions at the time of discharge.
== END 2019-03-06 12:08 | disposition home or self-care (01) | DRG 248 ==
LOC: M ED 20:25 → M ED INP 03-02 01:14 → M MSPAV 03-02 02:05
PROVIDERS: ADMIT Internal Medicine Nephrology; ATTEND Family Medicine
DX: A04.4 Other intestinal Escherichia coli infections (principal); I45.81 Long QT syndrome; I10 Essential (primary) hypertension; E11.9 Type 2 diabetes mellitus without complications; E87.6 Hypokalemia; Z96.651 Presence of right artificial knee joint; N20.0 Calculus of kidney; Z79.899 Other long term (current) drug therapy; Z88.5 Allergy status to narcotic agent; Z88.8 Allergy status to other drugs, medicaments and biological substances; A04.8 Other specified bacterial intestinal infections

== ENCOUNTER → 2019-03-26 | Outpatient (CLI) | payer BC ==
[~2019-03-26] MED LIST changes: +BUPIVACAINE HCL 0.25% 30 ML VIAL As Ordered ONE; +CIPR500S PO; +CVS1CAP PO; +DICL1GEL3 TOP; +ISOVUE-M 300 61% 15ML VIAL (Q9967) As Ordered ONE; +LANTINJ4 SC; +LANTINJ4 SQ; +LIDO5OIN19 TOP; +LIDOCAINE 1% SDV INJ 30 ML VIAL As Ordered ONE; +METR-265 PO; +OXYC10TA3 PO; +POTA1TAB14 PO; +TRIAMCINOLONE ACETONIDE SUSP 40 MG/ML VIAL (J3301) As Ordered ONE; +diazePAM 5 MG TAB As Ordered ONE; +oxyCODONE 5MG TAB As Ordered ONE
--- NOTE | 2019-03-26 11:01 | REP ---
C-ARM VIEWS, RIGHT ISCHIAL TUBEROSITY: CLINICAL HISTORY: Pain. Five C-arm views of right ischial tuberosity region performed during injection by Dr. Laird. Needle overlies the right ischial tuberosity. 17 seconds of fluoroscopy time utilized. Electronically Signed by Ayush Menard MD 03/26/2019 03:57 P
--- NOTE | 2019-04-08 00:06 | ECWPNPC ---
PATIENT NAME: KHANH GEORGE : 1960 GENDER: MALE VISIT DATE: 03/26/2019 DISCHARGE DATE: 03/26/19 1106 VISIT LOCKED DATE TIME: PHYSICIAN: LAURO LÓPEZ MD PHYSICIAN PAGER NO: [phone] RESOURCE: LAURO LÓPEZ MD REASON FOR APPOINTMENT 1. RIGHT ISCHIAL TUBEROSITY UNDER XRAY INJECTION HISTORY OF PRESENT ILLNESS HISTORY OF PRESENT ILLNESS: PAIN THE PATIENT DESCRIBES THE PAIN... FALL RISK SCREENING: SCREENING :NO FALLS REPORTED IN THE LAST YEAR CURRENT MEDICATIONS TAKING PROBIOTIC MATURE ADULT - CAPSULE 1 CAPSULE ORALLY WITH MEALS TAKING LUMIGAN 0.01 % SOLUTION INSTILL 1 DROP IN EACH EYE AT NIGHT TIME OPHTHALMIC TAKING LIDOCAINE 5 % PATCH DIRECTED EXTERNALLY APPLEY 2 PATCHES TO HIP OR BACK ON 12 HOURS OFF 12 HOURS MDD2 TAKING LIDOCAINE 5 % OINTMENT 1 APPLICATION TO AFFECTED AREA NEEDED EXTERNALLY APPLY Q 4-6 HRS PRN PAIN APPLY TO PAINFUL AREA OF FEET/KNEE TAKING DICLOFENAC SODIUM 1 % GEL 1 APPLICATION TO AFFECTED AREA (KNEES,HIP) TRANSDERMAL THREE TIMES DAILY NEEDED TAKING PERCOCET 10-325 MG TABLET 1 TABLETS ORALLY EVERY 4 HRS PRN PAIN MDD=6, NOTES: 03/26/19 0600 TAKING ONDANSETRON HCL 4 MG TABLET 1-2 TABLETS ORALLY EVERY 8 HOURS NEEDED TAKING ONETOUCH ULTRA 2 W/DEVICE KIT 1 E11.42 TAKING LANTUS SOLO STAR PEN NEEDLES 4MM NEEDLES 32 G 1 SUBCUTANEOUS BID 11.42 TAKING LANTUS SOLOSTAR 100 UNIT/ML SOLUTION PEN-INJECTOR INJECT 75 UNITS UNDER THE SKIN AT BEDTIME AND 35 UNITS EVERY MORNING DIRECTED , NOTES: 03/25/19 PM TAKING JANUVIA 100 MG TABLET 1 TABLET ORALLY ONCE A DAY, NOTES: 03/25/19 AM TAKING PIOGLITAZONE HCL 15 MG TABLET 1 TABLET ORALLY ONCE A DAY, NOTES: NOT STARTED YET NOT-TAKING POTASSIUM CHLORIDE ER 20 MEQ TABLET EXTENDED RELEASE 1 TABLET WITH FOOD ORALLY ONCE A DAY MEDICATION LIST REVIEWED AND RECONCILED WITH THE PATIENT PAST MEDICAL HISTORY DIABETES MELLITUS KIDNEY STONES GLAUCOMA PNEUMONIA SHOT GIVEN 05-03-2011 WHILE INPATIENT @ [facility] 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 NEED FOR PROPHYLACTIC VACCINATION AND INOCULATION, INFLUENZA ERECTILE DYSFUNCTION / IMPOTENCE KIDNEY STONE GROSS HEMATURIA 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 ATYPICAL CHEST PAIN ABDOMINAL PAIN DIABETIC TOE ULCER OSTEOARTHRITIS OF HIP OSTEOARTHRITIS OF RIGHT HIP MRSA COLONIZATION FURUNCULOSIS DRY MOUTH SIDE EFFECT WITH INVOKANA CHILDHOOD POLIO AGE APPROX 19 MOS ARTHRITIS IN HANDS AGENT ORANGE EXPOSURE 1981 RIGHT LEG PAIN ALLERGIES MORPHINE SULFATE: NAUSEA/VOMITING - SIDE EFFECTS METFORMIN: HICCUPS - SIDE EFFECTS GABAPENTIN: HALLUCINATIONS - SIDE EFFECTS SURGICAL HISTORY WRIST SURGERY RIGHT KNEE GALLBLADDER 04-22-2014 NEURO STIMULATOR TRAIL 12/2014 NEURO STIMULATOR PLACED 03/2015 FAMILY HISTORY FATHER: , DIAGNOSED WITH DIABETES, OTHER MALIGNANT NEOPLASM OF UNSPECIFIED SITE MOTHER: , DIABETES, UNSPECIFIED CEREBRAL ARTERY OCCLUSION WITH CEREBRAL INFARCTION 2 BROTHER(S) . 1 SON(S) , 1 DAUGHTER(S) . 2 SISTER , FATHER -BLACK LUNG AND KIDNEY CANCER, MOM- STROKE\NSISTER - COMPLICATIONS FROM DMSISTER - : CANCER. SOCIAL HISTORY GENERAL: TOBACCO USE ARE YOU A:NONSMOKER NEVER SMOKER ADDITIONAL FINDINGS: TOBACCO USER NONE ADDITIONAL FINDINGS: TOBACCO NON-USER NO VAPORNO E-CIGARETTENO HIV / HEP-C SCREENING HIV TEST OFFERED TO PATIENT:YES DATE OFFERED:10/24/2018 TEST ACCEPTED:NO HEP-C TEST OFFERED TO PATIENT:YES DATE OFFERED:10/24/2018 REASON:PATIENT DECLINED TEST ACCEPTED:NO REASON:PATIENT DECLINED TESTED 2013 BROCHURE PROVIDED TO PATIENTNO DECLINES OTHERS AT HOME: SPOUSE. EDUCATION LEVEL OF EDUCATION:COLLEGE DIET: CARBOHYDRATE CONTROLLED. LANGUAGE MONGOLIAN. DOMESTIC VIOLENCE DO YOU FEEL SAFE IN YOUR ENVIRONMENT?YES NEW PATIENT PAIN DIARY FROM 0-10, WHAT LEVEL IS YOUR PAIN TODAY?4 BMI CARE GOAL FOLLOW-UP ABOVE NORMAL BMI FOLLOW-UPDIETARY MANAGEMENT EDUCATION, GUIDANCE, AND COUNSELING RECREATIONAL DRUG USE DRUG USE?NO EXERCISE: WALKS. LEARNING BARRIERS / SPECIAL NEEDS CHANGE FROM LAST VISIT?NO 07/17/2018 BARRIERS TO LEARNING?NO HEARING IMPAIRED?NO VISION IMPAIRED?YES COGNITIVELY IMPAIRED?NO :CORRECTIVE LENSES READING READINESS TO LEARN?YES LEARNING PREFERENCES?NO LEARNING CAPABILITIES PRESENT?YES EMOTIONAL BARRIERS?NO SPECIAL DEVICES?NO CAR AUDIO INSTALLER NEEDED?NO LUNG CANCER SCREENING SMOKING STATUS:NON SMOKER PAIN CLINIC PFS, CLERGY, PUBLIC HEALTH REFERRALS PFS REFERRAL NEEDED?NO CLERGY REFERRAL NEEDED?NO PUBLIC HEALTH REFERRAL NEEDED?NO WAS THE PROVIDER NOTIFIED OF ANY PERTINENT INFO?YES HAS THE PATIENT BEEN EDUCATED REGARDING HIS/HER PLAN OF CARE?YES HAS THE PATIENT BEEN EDUCATED REGARDING PAIN, THE RISK FOR PAIN, THE IMPORTANCE OF EFFECTIVE PAIN MANAGEMENT, AND THE PAIN ASSESSMENT PROCESS?YES LATEX QUESTIONNAIRE LATEX ALLERGY : HAVE YOU EVER DEVELOPED ANY TYPE OF REACTION AFTER HANDLING LATEX PRODUCTS SUCH RUBBER GLOVES, CONDOMS, DIAPHRAGMS, BALLOONS, SOCKS, OR UNDERWEAR?NO LATEX ALLERGY : HAVE YOU EVER DEVELOPED ANY TYPE OF REACTION DURING OR AFTER DENTAL APPOINTMENT, VAGINAL/RECTAL EXAMINATION, SURGICAL PROCEDURE, OR ANY OTHER EXPOSURE?NO DATE ASKED : 09/11/2018 LATEX RISK : HAVE YOU EVER HAD ANY DIFFICULTY BREATHING OR HIVES AFTER EATING OR HANDLING ANY FRUITS, OR VEGETABLES; SUCH KIWI, BANANAS, STONE FRUITS, OR CHESTNUTSNO LATEX RISK : DO YOU HAVE A PREVIOUS PERSONAL HISTORY OF MORE THAN NINE SURGERIES, SPINA BIFIDA, OR REPEATED CATHERIZATIONS? NO LATEX RISK : ARE YOU FREQUENTLY EXPOSED TO LATEX PRODUCTS IN YOUR OCCUPATION?NO CAFFEINE CAFFEINE USE?YES HOW OFTEN AND HOW MUCH? 1-2 CUPS COFFEE/DAY ADVANCE DIRECTIVE ADVANCE DIRECTIVE DISCUSSED WITH PATIENT:YES PATIENT STATES HE HAS HCP INFORMATION AT HOME, DECLINED ASSISTANCE WITH FILLING OUT PAPERWORK AT THIS TIME. 03/26/19 ISLAM [id number] NONE MARITAL STATUS: . 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 SEXUAL HX HAD SEX IN THE LAST 12 MONTHS (VAGINAL, ORAL, OR ANAL)?YES WITHWOMEN ONLY PREVENTION STRATEGIES DISCUSSED:OTHER USE PROTECTION?NO HAVE YOU EVER HAD AN STD?NO REVIEWED WITH PATIENT 07/13/18 0984 JSREVIEWED WITH PATIENT 11/23/18 0952 JSREVIEWED WITH PT 03/26/19 0968 BV. HOSPITALIZATION/MAJOR DIAGNOSTIC PROCEDURE ABSCESS AROUND RIGHT KIDNEY 05/2011 COLON BLOCKAGE @ [facility] AUG 112012 [facility] ABDOMINAL PAIN SECONDARY TO MESENTERIC ADENITIS AUG 21 [facility] ER -ABD.PAIN-GALLSTONES 12/21/13 [facility] ENTEROCOLITIS 01/2019 REVIEW OF SYSTEMS REVIEWED BY: PROVIDER: . CONSTITUTIONAL: ANY CHANGE IN YOUR MEDICAL CONDITION? NO . CHILLS NO . FEVER NO . INFECTION: DO YOU HAVE NEW INFECTIONS? NO . DO YOU HAVE HISTORY OF MRSA? NO . MUSCULOSKELETAL: ANY NEW PATTERNS OF PAIN OR NUMBNESS? NO . GASTROENTEROLOGY: ANY NEW CHANGE IN BOWEL CONTROL? NO . GENITOURINARY: ANY NEW CHANGE IN BLADDER CONTROL? NO . IS THERE A CHANCE YOU COULD BE ? NO . HEMATOLOGY/LYMPH: DO YOU TAKE ANY BLOOD THINNERS? (FOR EXAMPLE- COUMADIN, PLAVIX, AGGRENOX, PLATEL, PRADAXA, OR XARELTO) NO . WHEN WAS YOUR LAST DOSE? DATE: TIME: . NEUROLOGY: HAVE YOU FALLEN IN THE PAST 12 MONTHS? NO . ANY NEW EXTREMITY NUMBNESS OR WEAKNESS? NO . CARDIOLOGY: DO YOU HAVE A PACEMAKER OR DEFIBRILLATOR? NO . RESPIRATORY: HAVE YOU BEEN SICK IN THE PAST WEEK? NO . FEVER NO . FLU LIKE SYMPTOMS? NO . COUGH NO . INTEGUMENTARY: DO YOU HAVE ANY RASHES OR OPEN SORES? NO . ALLERGIC/IMMUNO: ARE YOU ALLERGIC TO IV DYE? NO . ANY NEW ALLERGIES? NO . PSYCHIATRIC: DO YOU HAVE THOUGHTS OF HURTING YOURSELF OR SOMEONE ELSE? NO . ARE YOU ABUSED, NEGLECTED, OR IN AN UNSAFE ENVIRONMENT? NO . ENDOCRINOLOGY: ARE YOU DIABETIC? NO . OTHER: DO YOU NEED ANY PRESCRIPTIONS? NO . IF YES, PLEASE LIST: ____ . ANY NEW PROBLEMS WITH YOUR MEDICATIONS? NO . WHEN DID YOU LAST EAT? ____ . WHEN DID YOU LAST DRINK? ____ . WHAT DID YOU LAST DRINK? ____ . NAME OF PERSON DRIVING YOU HOME? ____ . DO YOU HAVE ANY OTHER QUESTIONS OR CONCERNS NO . VITAL SIGNS WT 267.8 LBS, HT 71 IN, BMI 37.35 INDEX, BP 166/89 MM HG, HR 97 /MIN, RR 18 /MIN, TEMP 97.1 F, OXYGEN SAT % 98%, NA INITIALS WY 09:14, REVIEWED BY: BV. ASSESSMENTS OTHER BURSITIS OF HIP, RIGHT HIP - M70.71 (PRIMARY) PRIMARY OSTEOARTHRITIS OF RIGHT HIP - M16.11 TREATMENT PRIMARY OSTEOARTHRITIS OF RIGHT HIP [facility] FLUORO GUIDANCE (PAIN)[id number] PROCEDURES PREPROCEDURE DIAGNOSIS: BURSITIS AT THE RIGHT ISCHIAL TUBEROSITY. POSTPROCEDURE DIAGNOSIS: BURSITIS AT THE RIGHT ISCHIAL TUBEROSITY. PROCEDURE: INJECTION AT THE RIGHT ISCHIAL TUBEROSITY UNDER FLUOROSCOPIC GUIDANCE. SURGEON: DR. LAURO LÓPEZ CLEANING TEAM MEMBER: NONEANESTHESIA: LOCAL. PREOPERATIVE NOTE: THE PATIENT HAS A HISTORY OF RIGHT BUTTOCK PAIN WITH INCREASED PAIN IN THE SITTING POSITION. I EVALUATED THE PATIENT AND REVIEWED THE CHART. WE BOTH AGREE ON INJECTING OVER THE BURSA OF THE RIGHT ISCHIAL TUBEROSITY. I WENT THROUGH THE RISKS, ALTERNATIVES, AND BENEFITS ASSOCIATED WITH THIS PROCEDURE. THE PATIENT WOULD LIKE TO PROCEED AND GIVES CONSENT TO PERFORM THE PROCEDURE. THE PATIENT DENIES UNEXPLAINABLE WEIGHT LOSS, FEVERS, CHILLS, OR CHANGES IN HIS URINARY OR BOWEL CONTROL. DESCRIPTION OF PROCEDURE: AFTER CONSENT WAS TAKEN, THE PATIENT WAS BROUGHT TO THE PROCEDURE ROOM AND PLACED IN THE PRONE. THE RIGHT BUTTOCK AREA WAS CLEANED WITH CHLORAPREP SOLUTION AND DRAPED ASEPTICALLY. THE PROCEDURE WAS DONE UNDER STERILE CONDITIONS. I CHECKED LATERALITY WITH THE PATIENT AND THE STAFF IN THE PROCEDURE ROOM AT THE MOMENT OF THE TIME OUT. UNDER FLUOROSCOPIC GUIDANCE, TARGET WAS SELECTED AT THE LOWER BORDER OF THE RIGHT ISCHIAL TUBEROSITY. LIDOCAINE WAS USED TO NUMB THE SKIN AND THE SUBCUTANEOUS TISSUE BELOW IT. SPINAL NEEDLE, 22-GAUGE WAS ADVANCED UNDER FLUOROSCOPIC GUIDANCE AND FOLLOWING PATIENT FEEDBACK UNTIL THE TARGET WAS TOUCHED. POSITION OF THE NEEDLE WAS VERIFIED WITH AP AND LATERAL VIEWS. AFTER PROPER POSITION OF THE NEEDLE WAS ACHIEVED, ISOVUE M DYE, 30%, 0.25 ML WAS INJECTED SHOWING ADEQUATE SPREAD OF THE DYE. THEN A SOLUTION OF 15 ML OF BUPIVACAINE 0.25% AND KENALOG 40 MG WAS INJECTED. THERE WAS NO EVIDENCE OF BLOOD OR PARESTHESIA. THE PATIENT WAS SENT TO THE RECOVERY ROOM. THE PATIENT WAS MOVING THE EXTREMITIES AND DOING WELL. THERE WERE NO COMPLICATIONS DURING THE PROCEDURE. FLUOROSCOPIC TIME WAS 17 SECONDS.POSTOPERATIVE NOTE: I DISCUSSED ALTERNATIVES WITH THE PATIENT. WE WILL SEE THE PATIENT BACK IN SEVERAL WEEKS FOR REEVALUATION OF THE CASE. I AM LOOKING FOR LONG-LASTING PAIN RELIEF WITH THIS INTERVENTION. FURTHER RECOMMENDATIONS WILL BE DONE DEPENDING ON HOW THE PATIENT DOES. I MAY CONSIDER ORDERING AN X-RAY AND CT SCAN OF THE RIGHT HIP FOR POSSIBLE RIGHT HIP JOINT INJECTIONS AND I WOULD LIKE TO CONSULT THE PATIENT'S CASE WITH THE PATIENT'S ORTHOPEDIC. THERE WERE NO COMPLICATIONS. I, NAOMI VIRAMONTES, DOCUMENTED THE ABOVE INFORMATION ACTING A SCRIBE FOR DR. LÓPEZ. I HAVE REVIEWED THE ABOVE DOCUMENT, WRITTEN BY NAOMI VIRAMONTES SCRIBCecelia AND I VERIFY THAT IT IS ACCURATE. PROCEDURE CODES [id number] DRAIN/INJ JOINT/BURSA W/O US, MODIFIERS: RT [address] NEEDLE LOCALIZATION BY XRAY, MODIFIERS: [id number] RADXPS IN END [id number] PXD DISPOSITION & COMMUNICATION FOLLOW UP 3 WEEKS ELECTRONICALLY SIGNED BY LAURO LÓPEZ MD, MD ON 04/07/2019 AT 04:59 PM EDT DISCLAIMER : THIS IS A VISIT SUMMARY EXTRACTED FROM THE [employer] CHART. IT IS NOT A COPY OF THE [employer] PROGRESS NOTE. MTDD
== END ==
LOC: M PAIN 09:15
PROVIDERS: ATTEND Anesthesiology
DX: M70.71 Other bursitis of hip, right hip (principal); M16.11 Unilateral primary osteoarthritis, right hip; E11.9 Type 2 diabetes mellitus without complications; H40.9 Unspecified glaucoma; E11.42 Type 2 diabetes mellitus with diabetic polyneuropathy; N52.9 Male erectile dysfunction, unspecified; E11.49 Type 2 diabetes mellitus with other diabetic neurological complication; Z87.442 Personal history of urinary calculi; Z86.14 Personal history of Methicillin resistant Staphylococcus aureus infection; Z86.12 Personal history of poliomyelitis; Z79.891 Long term (current) use of opiate analgesic; Z79.4 Long term (current) use of insulin; Z79.899 Other long term (current) drug therapy; Z88.5 Allergy status to narcotic agent; Z88.8 Allergy status to other drugs, medicaments and biological substances
CPT/HCPCS: 20610; 77002; J3301; Q9967

== ENCOUNTER → 2019-04-15 | Outpatient (CLI) | payer BC ==
[~2019-04-15] MED LIST changes: -BUPIVACAINE HCL 0.25% 30 ML VIAL As Ordered ONE; -ISOVUE-M 300 61% 15ML VIAL (Q9967) As Ordered ONE; -LIDOCAINE 1% SDV INJ 30 ML VIAL As Ordered ONE; -TRIAMCINOLONE ACETONIDE SUSP 40 MG/ML VIAL (J3301) As Ordered ONE; -diazePAM 5 MG TAB As Ordered ONE; -oxyCODONE 5MG TAB As Ordered ONE
== END ==
LOC: M PAIN 10:45
PROVIDERS: ATTEND Family Medicine
DX: M70.71 Other bursitis of hip, right hip (principal); M46.1 Sacroiliitis, not elsewhere classified; E11.42 Type 2 diabetes mellitus with diabetic polyneuropathy; Z86.14 Personal history of Methicillin resistant Staphylococcus aureus infection; Z88.5 Allergy status to narcotic agent; Z88.8 Allergy status to other drugs, medicaments and biological substances; Z79.4 Long term (current) use of insulin; Z79.891 Long term (current) use of opiate analgesic; Z79.899 Other long term (current) drug therapy

== ENCOUNTER → 2019-05-16 | Outpatient (CLI) | payer BC ==
[~2019-05-16] MED LIST changes: +BUPIVACAINE HCL 0.25% 30 ML VIAL As Ordered ONE; +ISOVUE-M 300 61% 15ML VIAL (Q9967) As Ordered ONE; +LIDOCAINE 1% SDV INJ 30 ML VIAL As Ordered ONE; +TRIAMCINOLONE ACETONIDE SUSP 40 MG/ML VIAL (J3301) As Ordered ONE; +diazePAM 5 MG TAB As Ordered ONE; +oxyCODONE 5MG TAB As Ordered ONE
--- NOTE | 2019-05-16 12:11 | REP ---
SI joint: Single view. History: Right SI joint block for pain. 9 seconds of fluoroscopy time is reported. Findings: A single last image hold fluoroscopically obtained spot radiograph documents needle position associated with SI joint injection. No laterality marker is visible. Electronically Signed by Neymar Lucas MD 05/16/2019 12:30 P
--- NOTE | 2019-05-24 00:57 | ECWPNPC ---
PATIENT NAME: KHANH GEORGE : 1960 GENDER: MALE VISIT DATE: 05/16/2019 DISCHARGE DATE: 05/16/19 1148 VISIT LOCKED DATE TIME: PHYSICIAN: LAURO LÓPEZ MD PHYSICIAN PAGER NO: [phone] RESOURCE: LAURO LÓPEZ MD REASON FOR APPOINTMENT 1. RIGHT SIJ HISTORY OF PRESENT ILLNESS HISTORY OF PRESENT ILLNESS: PAIN THE PATIENT DESCRIBES THE PAIN... FALL RISK SCREENING: SCREENING :NO FALLS REPORTED IN THE LAST YEAR CURRENT MEDICATIONS TAKING PROBIOTIC MATURE ADULT - CAPSULE 1 CAPSULE ORALLY WITH MEALS, NOTES: 05/15 08 TAKING LUMIGAN 0.01 % SOLUTION INSTILL 1 DROP IN EACH EYE AT NIGHT TIME OPHTHALMIC , NOTES: 05/15 2200 TAKING ONETOUCH ULTRA 2 W/DEVICE KIT 1 E11.42 TAKING LANTUS SOLO STAR PEN NEEDLES 4MM NEEDLES 32 G 1 SUBCUTANEOUS BID 11. TAKING LANTUS SOLOSTAR 100 UNIT/ML SOLUTION PEN-INJECTOR INJECT 75 UNITS UNDER THE SKIN AT BEDTIME AND 35 UNITS EVERY MORNING DIRECTED , NOTES: 35 UNITS 05/15 2100 TAKING JANUVIA 100 MG TABLET 1 TABLET ORALLY ONCE A DAY, NOTES: GOING TO RESTART IN A WEEK TAKING DICLOFENAC SODIUM 1 % GEL 1 APPLICATION TO AFFECTED AREA (KNEES,HIP) TRANSDERMAL THREE TIMES DAILY NEEDED, NOTES: 05/15 1200 TAKING LIDOCAINE 5 % OINTMENT 1 APPLICATION TO AFFECTED AREA NEEDED EXTERNALLY APPLY Q 4-6 HRS PRN PAIN APPLY TO PAINFUL AREA OF FEET/KNEE, NOTES: 05/15 2200 TAKING LIDOCAINE 5 % PATCH DIRECTED EXTERNALLY APPLY 2 PATCHES TO HIP OR BACK ON 12 HOURS OFF 12 HOURS MDD2, NOTES: 05/15 0800 OFF IN THE EVENING TAKING PERCOCET 7.5-325 MG TABLET 1 TABLETS ORALLY EVERY 4 HRS PRN PAIN MDD=6, NOTES: 05/16 0600 TAKING MUCINEX NASAL SPRAY FULL FORCE 1 SPRAY EACH NOSTRIL INTER NASAL TWICE DAILY NEEDED NOT-TAKING PIOGLITAZONE HCL 15 MG TABLET 1 TABLET ORALLY ONCE A DAY NOT-TAKING ONDANSETRON HCL 4 MG TABLET 1-2 TABLETS ORALLY EVERY 8 HOURS NEEDED NOT-TAKING POTASSIUM CHLORIDE ER 20 MEQ TABLET EXTENDED RELEASE 1 TABLET WITH FOOD ORALLY ONCE A DAY MEDICATION LIST REVIEWED AND RECONCILED WITH THE PATIENT PAST MEDICAL HISTORY DIABETES MELLITUS KIDNEY STONES GLAUCOMA PNEUMONIA SHOT GIVEN 05-03-2011 WHILE INPATIENT @ [facility] 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 NEED FOR PROPHYLACTIC VACCINATION AND INOCULATION, INFLUENZA ERECTILE DYSFUNCTION / IMPOTENCE KIDNEY STONE GROSS HEMATURIA 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 ATYPICAL CHEST PAIN ABDOMINAL PAIN DIABETIC TOE ULCER OSTEOARTHRITIS OF HIP OSTEOARTHRITIS OF RIGHT HIP MRSA COLONIZATION FURUNCULOSIS DRY MOUTH SIDE EFFECT WITH INVOKANA CHILDHOOD POLIO AGE APPROX 19 MOS ARTHRITIS IN HANDS AGENT ORANGE EXPOSURE 1982 RIGHT LEG PAIN ALLERGIES MORPHINE SULFATE: NAUSEA/VOMITING - SIDE EFFECTS METFORMIN: HICCUPS - SIDE EFFECTS GABAPENTIN: HALLUCINATIONS - SIDE EFFECTS SURGICAL HISTORY WRIST SURGERY-RIGHT RIGHT KNEE GALLBLADDER 04-22-2014 NEURO STIMULATOR TRAIL 12/2014 NEURO STIMULATOR PLACED 03/2015 FAMILY HISTORY FATHER: , DIAGNOSED WITH OTHER MALIGNANT NEOPLASM OF UNSPECIFIED SITE, DIABETES MOTHER: , DIABETES, UNSPECIFIED CEREBRAL ARTERY OCCLUSION WITH CEREBRAL INFARCTION 2 BROTHER(S) . 1 SON(S) , 1 DAUGHTER(S) . 2 SISTER , FATHER -BLACK LUNG AND KIDNEY CANCER, MOM- STROKE\NSISTER - COMPLICATIONS FROM DMSISTER - : CANCER. SOCIAL HISTORY GENERAL: TOBACCO USE ARE YOU A:NONSMOKER NEVER SMOKER ADDITIONAL FINDINGS: TOBACCO USER NONE ADDITIONAL FINDINGS: TOBACCO NON-USER NO VAPORNO E-CIGARETTENO HIV / HEP-C SCREENING HIV TEST OFFERED TO PATIENT:YES DATE OFFERED:10/24/2018 TEST ACCEPTED:NO HEP-C TEST OFFERED TO PATIENT:YES DATE OFFERED:10/24/2018 REASON:PATIENT DECLINED TEST ACCEPTED:NO REASON:PATIENT DECLINED TESTED 2013 BROCHURE PROVIDED TO PATIENTNO DECLINES OTHERS AT HOME: SPOUSE. EDUCATION LEVEL OF EDUCATION:COLLEGE DIET: CARBOHYDRATE CONTROLLED. LANGUAGE DANISH. DOMESTIC VIOLENCE DO YOU FEEL SAFE IN YOUR ENVIRONMENT?YES NEW PATIENT PAIN DIARY FROM 0-10, WHAT LEVEL IS YOUR PAIN TODAY?4 BMI CARE GOAL FOLLOW-UP ABOVE NORMAL BMI FOLLOW-UPDIETARY MANAGEMENT EDUCATION, GUIDANCE, AND COUNSELING RECREATIONAL DRUG USE DRUG USE?NO EXERCISE: WALKS. 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 N/A HAS THE PATIENT BEEN EDUCATED REGARDING HIS/HER PLAN OF CARE?YES HAS THE PATIENT BEEN EDUCATED REGARDING PAIN, THE RISK FOR PAIN, THE IMPORTANCE OF EFFECTIVE PAIN MANAGEMENT, AND THE PAIN ASSESSMENT PROCESS?YES LATEX QUESTIONNAIRE LATEX ALLERGY : HAVE YOU EVER DEVELOPED ANY TYPE OF REACTION AFTER HANDLING LATEX PRODUCTS SUCH RUBBER GLOVES, CONDOMS, DIAPHRAGMS, BALLOONS, SOCKS, OR UNDERWEAR?NO LATEX ALLERGY : HAVE YOU EVER DEVELOPED ANY TYPE OF REACTION DURING OR AFTER DENTAL APPOINTMENT, VAGINAL/RECTAL EXAMINATION, SURGICAL PROCEDURE, OR ANY OTHER EXPOSURE?NO LATEX RISK : HAVE YOU EVER HAD ANY DIFFICULTY BREATHING OR HIVES AFTER EATING OR HANDLING ANY FRUITS, OR VEGETABLES; SUCH KIWI, BANANAS, STONE FRUITS, OR CHESTNUTSNO LATEX RISK : DO YOU HAVE A PREVIOUS PERSONAL HISTORY OF MORE THAN NINE SURGERIES, SPINA BIFIDA, OR REPEATED CATHERIZATIONS? NO LATEX RISK : ARE YOU FREQUENTLY EXPOSED TO LATEX PRODUCTS IN YOUR OCCUPATION?NO DATE ASKED : 05/16/2019 CAFFEINE CAFFEINE USE?YES HOW OFTEN AND HOW MUCH? 1-2 CUPS COFFEE/DAY ADVANCE DIRECTIVE ADVANCE DIRECTIVE DISCUSSED WITH PATIENT:YES 05/16/19 PATIENT STATES HE HAS HCP INFORMATION AT HOME, DECLINED ASSISTANCE WITH FILLING OUT PAPERWORK AT THIS TIME. AD PENTECOSTAL [id number] NONE MARITAL STATUS: . 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 SEXUAL HX HAD SEX IN THE LAST 12 MONTHS (VAGINAL, ORAL, OR ANAL)?YES WITHWOMEN ONLY PREVENTION STRATEGIES DISCUSSED:OTHER USE PROTECTION?NO HAVE YOU EVER HAD AN STD?NO REVIEWED WITH PATIENT 07/13/18 0925 JSREVIEWED WITH PATIENT 11/23/18 0952 JSREVIEWED WITH PT 03/26/19 0924 BV. HOSPITALIZATION/MAJOR DIAGNOSTIC PROCEDURE ABSCESS AROUND RIGHT KIDNEY 05/2011 [facility] BLOCK[facility]17 [facility] ABDOMINAL PAIN SECONDARY TO MESENTERIC ADENITIS B [facility] ER -ABD.PAIN-GALLSTONES 12/21/13 [facility] ENTEROCOLITIS 01/2019 REVIEW OF SYSTEMS REVIEWED BY: PROVIDER: . CONSTITUTIONAL: ANY CHANGE IN YOUR MEDICAL CONDITION? NO . CHILLS NO . FEVER NO . INFECTION: DO YOU HAVE NEW INFECTIONS? NO . DO YOU HAVE HISTORY OF MRSA? NO . MUSCULOSKELETAL: ANY NEW PATTERNS OF PAIN OR NUMBNESS? YES, PAIN RIGHT HIP HAS GOTTEN WORSE OVER THE PAST 2 WEEKS . GASTROENTEROLOGY: ANY NEW CHANGE IN BOWEL CONTROL? NO . GENITOURINARY: ANY NEW CHANGE IN BLADDER CONTROL? NO . IS THERE A CHANCE YOU COULD BE ? NO . HEMATOLOGY/LYMPH: DO YOU TAKE ANY BLOOD THINNERS? (FOR EXAMPLE- COUMADIN, PLAVIX, AGGRENOX, PLATEL, PRADAXA, OR XARELTO) NO . WHEN WAS YOUR LAST DOSE? DATE: TIME: . NEUROLOGY: HAVE YOU FALLEN IN THE PAST 12 MONTHS? YES, STATES HE FALLS OFTEN DUE TO NOT BEING ABLE TO FEEL HIS FEET. NO MAJOR INJURIES . ANY NEW EXTREMITY NUMBNESS OR WEAKNESS? NO . CARDIOLOGY: DO YOU HAVE A PACEMAKER OR DEFIBRILLATOR? NO HAS DORSAL COLUMN STIM. . RESPIRATORY: HAVE YOU BEEN SICK IN THE PAST WEEK? NO . FEVER NO . FLU LIKE SYMPTOMS? NO . COUGH NO . INTEGUMENTARY: DO YOU HAVE ANY RASHES OR OPEN SORES? NO . ALLERGIC/IMMUNO: ARE YOU ALLERGIC TO IV DYE? NO . ANY NEW ALLERGIES? NO . PSYCHIATRIC: DO YOU HAVE THOUGHTS OF HURTING YOURSELF OR SOMEONE ELSE? NO . ARE YOU ABUSED, NEGLECTED, OR IN AN UNSAFE ENVIRONMENT? NO . ENDOCRINOLOGY: ARE YOU DIABETIC? YES, FSBS 120 @ 0600 . OTHER: DO YOU NEED ANY PRESCRIPTIONS? NO . IF YES, PLEASE LIST: ____ . ANY NEW PROBLEMS WITH YOUR MEDICATIONS? NO . WHEN DID YOU LAST EAT? 05/15 2200 . WHEN DID YOU LAST DRINK? 05/15 2200 . WHAT DID YOU LAST DRINK? WATER . NAME OF PERSON DRIVING YOU HOME? DIANA GEORGE . DO YOU HAVE ANY OTHER QUESTIONS OR CONCERNS NO PT HAS NOT HAD ANY VACCINES IN THE PAST 30 DAYS . VITAL SIGNS WT 292.8 LBS, HT 71 IN, BMI 40.83 INDEX, BP 161/89 MM HG, HR 75 /MIN, RR 18 /MIN, TEMP 97.7 F, OXYGEN SAT % 97%, SAFE IN ENV? (Y/N) Y, NA INITIALS PR 09:45, REVIEWED BY: WESLEY. ASSESSMENTS SACROILIITIS - M46.1 (PRIMARY) TREATMENT SACROILIITIS [facility] FLUORO GUIDANCE (PAIN)[id number] PROCEDURES PN SI PRE PROCEDURE DIAGNOSIS SACROILIITIS, SACROILIAC JOINT DYSFUNCTION POST PROCEDURE DIAGNOSIS SACROILIITIS, SACROILIAC JOINT DYSFUNCTION PROCEDURE RIGHT SACROILIAC JOINT BLOCK SURGEON DR. LAURO LÓPEZ APPIAN DEVELOPER NONE ANESTHESIA LOCAL PRE PROCEDURE NOTE PATIENT WITH HISTORY OF CHRONIC LOW BACK PAIN. I EVALUATED THE PATIENT AND REVIEWED THE CHART. I WENT OVER THE RISKS, ALTERNATIVES, AND BENEFITS ASSOCIATED WITH THIS PROCEDURE. THE PATIENT WOULD LIKE TO PROCEED AND GAVE CONSENT TO PERFORM THE PROCEDURE. THE PATIENT DENIES UNEXPLAINABLE WEIGHT LOSS, FEVER, CHILLS, OR NEW CHANGES IN URINARY OR BOWEL CONTROL DESCRIPTION OF PROCEDURE THE PATIENT WAS BROUGHT TO THE PROCEDURE ROOM AND PLACED IN THE PRONE POSITION. THE LUMBOSACRAL AREA WAS CLEANED WITH CHLORAPREP SOLUTION AND DRAPED ASEPTICALLY. THE PROCEDURE WAS DONE UNDER STERILE CONDITIONS. I CHECKED LATERALITY AND THE LEVEL WHERE THE PROCEDURE WAS GOING TO BE PERFORMED WITH THE PATIENT AND THE SUPPORTING STAFF AT THE MOMENT OF THE TIME OUT IN THE PROCEDURE ROOM. UNDER FLUOROSCOPIC GUIDANCE, TARGET POINT WAS SELECTED AT THE LOWER BORDER OF THE RIGHT SACROILIAC JOINT. TARGET POINT WAS SELECTED AFTER MEDIAL ROTATION AND TILT OF THE MAGNIFIER OF THE C-ARM. LIDOCAINE WAS USED TO NUMB THE SKIN AND SUBCUTANEOUS TISSUE BELOW IT. A SPINAL NEEDLE, 22-GAUGE, WAS ADVANCED UNDER FLUOROSCOPIC GUIDANCE AND FOLLOWING PATIENT FEEDBACK UNTIL THE TARGET AREA WAS TOUCHED. THE POSITION OF THE NEEDLE WAS VERIFIED WITH AP AND LATERAL VIEWS. AFTER PROPER POSITION OF THE NEEDLE WAS ACHIEVED, ISOVUE M DYE 30%, 0.25 ML, WAS INJECTED SHOWING SPREAD OF THE DYE. THEN, A SOLUTION OF 20 MG OF KENALOG WAS INJECTED IN RIGHT JOINT WITH 3 ML OF BUPIVACAINE 0.125%. THERE WAS NO EVIDENCE OF BLOOD, PARESTHESIA OR CEREBROSPINAL FLUID DURING THE PROCEDURE. THE PATIENT WAS SENT TO THE RECOVERY ROOM. THE PATIENT WAS MOVING THE EXTREMITIES AND DOING WELL. THERE WAS NO COMPLICATION DURING THE PROCEDURE. FLUOROSCOPY TIME WAS 9 SECONDS POST PROCEDURE NOTE THE PATIENT WILL BE SEEN IN A FOLLOW UP IN THE NEXT FEW WEEKS. INSTRUCTIONS WERE GIVEN, QUESTIONS WERE ANSWERED, AND THE PATIENT EXPRESSED UNDERSTANDING AND AGREED WITH THE PLAN. I, NAOMI VIRAMONTES, DOCUMENTED THE ABOVE INFORMATION ACTING A SCRIBE FOR DR. LÓPEZ. I HAVE REVIEWED THE ABOVE DOCUMENT, WRITTEN BY NAOMI CARIAS AND I VERIFY THAT IT IS ACCURATE. PROCEDURE CODES 13304 INJECT SACROILIAC JOINT, MODIFIERS: RT [id number] RADXPS IN END [id number] PXD DISPOSITION & COMMUNICATION FOLLOW UP 3 WEEKS ELECTRONICALLY SIGNED BY LAURO LÓPEZ MD, MD ON 05/23/2019 AT 02:01 PM EST DISCLAIMER : THIS IS A VISIT SUMMARY EXTRACTED FROM THE [email or web address] CHART. IT IS NOT A COPY OF THE [employer] PROGRESS NOTE. MTDD
== END ==
LOC: M PAIN 09:45
PROVIDERS: ATTEND Anesthesiology
DX: M46.1 Sacroiliitis, not elsewhere classified (principal)
CPT/HCPCS: G0260; J3301; Q9967

== ENCOUNTER → 2019-07-09 | Outpatient (CLI) | payer BC ==
[~2019-07-09] MED LIST changes: -BUPIVACAINE HCL 0.25% 30 ML VIAL As Ordered ONE; -ISOVUE-M 300 61% 15ML VIAL (Q9967) As Ordered ONE; -LIDOCAINE 1% SDV INJ 30 ML VIAL As Ordered ONE; -TRIAMCINOLONE ACETONIDE SUSP 40 MG/ML VIAL (J3301) As Ordered ONE; -diazePAM 5 MG TAB As Ordered ONE; -oxyCODONE 5MG TAB As Ordered ONE
--- NOTE | 2019-07-11 01:35 | ECWPNPC ---
PATIENT NAME: KHANH GEORGE : 1960 GENDER: MALE VISIT DATE: 07/09/2019 DISCHARGE DATE: 07/09/19 1204 VISIT LOCKED DATE TIME: PHYSICIAN: CHAPIS TOSCANO PHYSICIAN PAGER NO: [phone] RESOURCE: CHAPIS TOSCANO REASON FOR APPOINTMENT 1. MEDS HISTORY OF PRESENT ILLNESS HISTORY OF PRESENT ILLNESS: PAIN THE PATIENT DESCRIBES THE PAIN... 58-YEAR-OLD MALE IN FOR CHRONIC PAIN FOLLOW-UP. HE RATES HIS PAIN CURRENTLY AT AN 8 OUT OF 10 AND DESCRIBES IT ACHING, BURNING, SORE, STABBING, AND CONTINUOUS. PATIENT RECENTLY HAD SIJ INJECTION THAT HE STATES HELPED FOR APPROXIMATELY 3 WEEKS. RATING HIS PAIN PREPROCEDURE AT A 8 OUT OF 10 AND POST PROCEDURE AT A 3 OUT OF 10. FALL RISK SCREENING: SCREENING :NO FALLS REPORTED IN THE LAST YEAR CURRENT MEDICATIONS TAKING PROBIOTIC MATURE ADULT - CAPSULE 1 CAPSULE ORALLY WITH MEALS TAKING LUMIGAN 0.01 % SOLUTION INSTILL 1 DROP IN EACH EYE AT NIGHT TIME OPHTHALMIC TAKING [employer] ULTRA 2 W/DEVICE KIT 1 E11.42 TAKING LANTUS SOLO STAR PEN NEEDLES 4MM NEEDLES 32 G 1 SUBCUTANEOUS BID 11.42 TAKING LANTUS SOLOSTAR 100 UNIT/ML SOLUTION PEN-INJECTOR INJECT 77 UNITS UNDER THE SKIN AT BEDTIME AND 35 UNITS EVERY MORNING DIRECTED TAKING JANUVIA 100 MG TABLET 1 TABLET ORALLY ONCE A DAY TAKING DICLOFENAC SODIUM 1 % GEL 1 APPLICATION TO AFFECTED AREA (KNEES,HIP) TRANSDERMAL THREE TIMES DAILY NEEDED TAKING MUCINEX NASAL SPRAY FULL FORCE 1 SPRAY EACH NOSTRIL INTER NASAL TWICE DAILY NEEDED TAKING CARISOPRODOL 350 MG TABLET 1 TABLET NEEDED ORALLY FOR SPASMS AND PAIN EVERY 6 HOURS NEEDED MDD3 TAKING PERCOCET 7.5-325 MG TABLET 1 TABLETS ORALLY EVERY 4 HRS PRN PAIN MDD=6 TAKING LIDOCAINE 5 % OINTMENT 1 APPLICATION TO AFFECTED AREA NEEDED EXTERNALLY APPLY Q 4-6 HRS PRN PAIN APPLY TO PAINFUL AREA OF FEET/KNEE, NOTES: 05/15 2200 TAKING LIDOCAINE 5 % PATCH DIRECTED EXTERNALLY APPLY 2 PATCHES TO HIP OR BACK ON 12 HOURS OFF 12 HOURS MDD2, NOTES: 05/15 0800 OFF IN THE EVENING TAKING OZEMPIC (0.25 OR 0.5 MG/DOSE) 2 MG/1.5ML SOLUTION PEN-INJECTOR 0.25MGX4 WEEKS THEN 0.5MG SUBCUTANEOUS WEEKLY NOT-TAKING PIOGLITAZONE HCL 15 MG TABLET 1 TABLET ORALLY ONCE A DAY NOT-TAKING ONDANSETRON HCL 4 MG TABLET 1-2 TABLETS ORALLY EVERY 8 HOURS NEEDED NOT-TAKING POTASSIUM CHLORIDE ER 20 MEQ TABLET EXTENDED RELEASE 1 TABLET WITH FOOD ORALLY ONCE A DAY MEDICATION LIST REVIEWED AND RECONCILED WITH THE PATIENT PAST MEDICAL HISTORY DIABETES MELLITUS KIDNEY STONES GLAUCOMA PNEUMONIA SHOT GIVEN 05-03-2011 WHILE INPATIENT @ [facility] 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 NEED FOR PROPHYLACTIC VACCINATION AND INOCULATION, INFLUENZA ERECTILE DYSFUNCTION / IMPOTENCE KIDNEY STONE GROSS HEMATURIA 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 ATYPICAL CHEST PAIN ABDOMINAL PAIN DIABETIC TOE ULCER OSTEOARTHRITIS OF HIP OSTEOARTHRITIS OF RIGHT HIP MRSA COLONIZATION FURUNCULOSIS DRY MOUTH SIDE EFFECT WITH INVOKANA CHILDHOOD POLIO AGE APPROX 19 MOS ARTHRITIS IN HANDS AGENT ORANGE EXPOSURE 1982 RIGHT LEG PAIN ALLERGIES MORPHINE SULFATE: NAUSEA/VOMITING - SIDE EFFECTS METFORMIN: HICCUPS - SIDE EFFECTS GABAPENTIN: HALLUCINATIONS - SIDE EFFECTS SURGICAL HISTORY WRIST SURGERY-RIGHT RIGHT KNEE GALLBLADDER 04-22-2014 NEURO STIMULATOR TRAIL 12/2014 NEURO STIMULATOR PLACED 03/2015 FAMILY HISTORY FATHER: , DIAGNOSED WITH DIABETES, OTHER MALIGNANT NEOPLASM OF UNSPECIFIED SITE MOTHER: , DIABETES, UNSPECIFIED CEREBRAL ARTERY OCCLUSION WITH CEREBRAL INFARCTION 2 BROTHER(S) . 1 SON(S) , 1 DAUGHTER(S) . 2 SISTER , FATHER -BLACK LUNG AND KIDNEY CANCER, MOM- STROKE\NSISTER - COMPLICATIONS FROM DMSISTER - : CANCER. SOCIAL HISTORY GENERAL: TOBACCO USE ARE YOU A:NONSMOKER 06/21/2019 ADDITIONAL FINDINGS: TOBACCO USER NEVER A SMOKER ADDITIONAL FINDINGS: TOBACCO NON-USER NO VAPORNO E-CIGARETTENO HIV / HEP-C SCREENING HIV TEST OFFERED TO PATIENT:YES DATE OFFERED:06/21/2019 TEST ACCEPTED:NO HEP-C TEST OFFERED TO PATIENT:YES DATE OFFERED:06/21/2019 REASON:PATIENT DECLINED TEST ACCEPTED:NO REASON:PATIENT DECLINED TESTED 2013 BROCHURE PROVIDED TO PATIENTNO DECLINES OTHERS AT HOME: SPOUSE. EDUCATION LEVEL OF EDUCATION:COLLEGE DIET: CARBOHYDRATE CONTROLLED. LANGUAGE BURKINAN. DOMESTIC VIOLENCE DO YOU FEEL SAFE IN YOUR ENVIRONMENT?YES NEW PATIENT PAIN DIARY FROM 0-10, WHAT LEVEL IS YOUR PAIN TODAY?4 BMI CARE GOAL FOLLOW-UP ABOVE NORMAL BMI FOLLOW-UPDIETARY MANAGEMENT EDUCATION, GUIDANCE, AND COUNSELING RECREATIONAL DRUG USE DRUG USE?NO EXERCISE: WALKS. 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 N/A HAS THE PATIENT BEEN EDUCATED REGARDING HIS/HER PLAN OF CARE?YES HAS THE PATIENT BEEN EDUCATED REGARDING PAIN, THE RISK FOR PAIN, THE IMPORTANCE OF EFFECTIVE PAIN MANAGEMENT, AND THE PAIN ASSESSMENT PROCESS?YES LATEX QUESTIONNAIRE LATEX ALLERGY : HAVE YOU EVER DEVELOPED ANY TYPE OF REACTION AFTER HANDLING LATEX PRODUCTS SUCH RUBBER GLOVES, CONDOMS, DIAPHRAGMS, BALLOONS, SOCKS, OR UNDERWEAR?NO LATEX ALLERGY : HAVE YOU EVER DEVELOPED ANY TYPE OF REACTION DURING OR AFTER DENTAL APPOINTMENT, VAGINAL/RECTAL EXAMINATION, SURGICAL PROCEDURE, OR ANY OTHER EXPOSURE?NO DATE ASKED : 06/21/2019 LATEX RISK : HAVE YOU EVER HAD ANY DIFFICULTY BREATHING OR HIVES AFTER EATING OR HANDLING ANY FRUITS, OR VEGETABLES; SUCH KIWI, BANANAS, STONE FRUITS, OR CHESTNUTSNO LATEX RISK : DO YOU HAVE A PREVIOUS PERSONAL HISTORY OF MORE THAN NINE SURGERIES, SPINA BIFIDA, OR REPEATED CATHERIZATIONS? NO LATEX RISK : ARE YOU FREQUENTLY EXPOSED TO LATEX PRODUCTS IN YOUR OCCUPATION?NO CAFFEINE CAFFEINE USE?YES HOW OFTEN AND HOW MUCH? 1-2 CUPS COFFEE/DAY ADVANCE DIRECTIVE ADVANCE DIRECTIVE DISCUSSED WITH PATIENT:YES PATIENT STATES HE HAS HCP INFORMATION AT HOME, DECLINED ASSISTANCE WITH FILLING OUT PAPERWORK AT THIS TIME. MOSQUE [id number] NONE MARITAL STATUS: . 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 SEXUAL HX HAD SEX IN THE LAST 12 MONTHS (VAGINAL, ORAL, OR ANAL)?YES WITHWOMEN ONLY PREVENTION STRATEGIES DISCUSSED:OTHER USE PROTECTION?NO HAVE YOU EVER HAD AN STD?NO REVIEWED WITH PATIENT 07/13/18 0929 JSREVIEWED WITH PATIENT 11/23/18 0952 JSREVIEWED WITH PT 03/26/19 0977 BV. HOSPITALIZATION/MAJOR DIAGNOSTIC PROCEDURE ABSCESS AROUND RIGHT KIDNEY 05/2011 [facility]ON BLOCKAGE [facility] 03[facility]17 [facility] ABDOMINAL PAIN SECONDARY TO MESENTERIC ADENITIS AUG 21 [facility] ER -ABD.PAIN-GALLSTONES 12/21/13 [facility] ENTEROCOLITIS 01/2019 REVIEW OF SYSTEMS REVIEWED BY: PROVIDER: STONEY PEREZ-Melida . CONSTITUTIONAL: ANY CHANGE IN YOUR MEDICAL CONDITION? NO . CHILLS NO . FEVER NO . INFECTION: DO YOU HAVE NEW INFECTIONS? NO . DO YOU HAVE HISTORY OF MRSA? NO . MUSCULOSKELETAL: ANY NEW PATTERNS OF PAIN OR NUMBNESS? YES, RIGHT HIP PAIN X 4-5 DAYS . GASTROENTEROLOGY: ANY NEW CHANGE IN BOWEL CONTROL? NO . GENITOURINARY: ANY NEW CHANGE IN BLADDER CONTROL? NO . IS THERE A CHANCE YOU COULD BE ? NO . HEMATOLOGY/LYMPH: DO YOU TAKE ANY BLOOD THINNERS? (FOR EXAMPLE- COUMADIN, PLAVIX, AGGRENOX, PLATEL, PRADAXA, OR XARELTO) NO . WHEN WAS YOUR LAST DOSE? DATE: TIME: . NEUROLOGY: HAVE YOU FALLEN IN THE PAST 12 MONTHS? YES, FELL DOWN HILL 3 WEEKS AGO PT DENIES INJURIES . ANY NEW EXTREMITY NUMBNESS OR WEAKNESS? YES, HIP PAIN . CARDIOLOGY: DO YOU HAVE A PACEMAKER OR DEFIBRILLATOR? DCS . RESPIRATORY: HAVE YOU BEEN SICK IN THE PAST WEEK? NO . FEVER NO . FLU LIKE SYMPTOMS? NO . COUGH NO . INTEGUMENTARY: DO YOU HAVE ANY RASHES OR OPEN SORES? YES, HEAD FROM FALLING INTO MENDES . ALLERGIC/IMMUNO: ARE YOU ALLERGIC TO IV DYE? NO . ANY NEW ALLERGIES? NO . PSYCHIATRIC: DO YOU HAVE THOUGHTS OF HURTING YOURSELF OR SOMEONE ELSE? NO . ARE YOU ABUSED, NEGLECTED, OR IN AN UNSAFE ENVIRONMENT? NO . ENDOCRINOLOGY: ARE YOU DIABETIC? YES . OTHER: DO YOU NEED ANY PRESCRIPTIONS? NO . IF YES, PLEASE LIST: ____ . ANY NEW PROBLEMS WITH YOUR MEDICATIONS? YES, MEDS AREN'T WORKING WELL . WHEN DID YOU LAST EAT? ____ . WHEN DID YOU LAST DRINK? ____ . WHAT DID YOU LAST DRINK? ____ . NAME OF PERSON DRIVING YOU HOME? ____ . DO YOU HAVE ANY OTHER QUESTIONS OR CONCERNS FLU VACCINE RECEIVED 06/21/19 . VITAL SIGNS WT 292.2 LBS, HT 71 IN, BMI 40.75 INDEX, BP 182/85 MM HG, HR 93 /MIN, RR 180 /MIN, TEMP 96.8 F, OXYGEN SAT % 97%, NA INITIALS AW 1100, REVIEWED BY: EM. EXAMINATION GENERAL EXAMINATION: GENERALNO ACUTE DISTRESS, WELL NOURISHED AND HYDRATED. PSYCHAPPROPRIATE MOOD AND AFFECT . LUNGS:CLEAR TO AUSCULTATION BILATERALLY, NO WHEEZES, RHONCHI, RALES. HEART:NO MURMURS, REGULAR RATE AND RHYTHM. ASSESSMENTS HIP PAIN, RIGHT - M25.551 (PRIMARY) TREATMENT HIP PAIN, RIGHT INCREASE PERCOCET TABLET, 10-325 MG, 1 TABLETS, ORALLY, EVERY 4 HRS PRN PAIN MDD=6 JOSELYN, 30 DAYS, 180 CLINICAL NOTES: 58-YEAR-OLD MALE IN FOR POST SIJ FOLLOW-UP. GIVEN PRESENTING SYMPTOMS AND RESULTS OF PHYSICAL EXAMINATION RECOMMENDED RETURNING TO PERCOCET 10/325 MG 3 TIMES A DAY WITH FOLLOW-UP IN ONE MONTH TO DETERMINE EFFICACY OF TREATMENT. PATIENT HAS EXPRESSED UNDERSTANDING OF AND WAS IN AGREEMENT WITH TREATMENT PLAN. GIVEN TIME TO ASK QUESTIONS AND EXPRESS CONCERNS., ISTOP REGISTRY REVIEWED AND DEMONSTRATES COMPLLIANCE. (REF # [id number] ) BRINGS IN MEDICATIONS WHICH IS APPROPRIATE FOR WHAT WAS DISPENSED. RECENT URINE TOXICOLOGY REVIEWED. NO UNAUTHORIZED MEDICATIONS. NO ILLICIT SUBSTANCES AND PRESCRIBED MEDICATIONS WERE PRESENT. PROCEDURE CODES [id number] ESTABILISHED PATIENT [facility] CHARGE DISPOSITION & COMMUNICATION FOLLOW UP 4 WEEKS (REASON: RIGHT HIP PAIN, MEDICATION INCREASE) ELECTRONICALLY SIGNED BY ANA DUONG ON 07/10/2019 AT 08:15 AM EST DISCLAIMER : THIS IS A VISIT SUMMARY EXTRACTED FROM THE [employer] CHART. IT IS NOT A COPY OF THE [employer] PROGRESS NOTE. EVAN
== END ==
LOC: M PAIN 11:00
PROVIDERS: ATTEND Family Medicine
DX: M25.551 Pain in right hip (principal); E11.9 Type 2 diabetes mellitus without complications; Z79.4 Long term (current) use of insulin; Z79.891 Long term (current) use of opiate analgesic; Z79.899 Other long term (current) drug therapy; Z88.5 Allergy status to narcotic agent; Z88.8 Allergy status to other drugs, medicaments and biological substances

== ENCOUNTER → 2019-08-06 | Outpatient (CLI) | payer BC ==
--- NOTE | 2019-08-08 02:46 | ECWPNPC ---
PATIENT NAME: KHANH GEORGE : 1960 GENDER: MALE VISIT DATE: 08/06/2019 DISCHARGE DATE: 08/06/19 1234 VISIT LOCKED DATE TIME: PHYSICIAN: CHAPIS TOSCANO PHYSICIAN PAGER NO: [phone] RESOURCE: CHAPIS TOSCANO REASON FOR APPOINTMENT 1. RIGHT HIP PAIN, MEDICATION INCREASE HISTORY OF PRESENT ILLNESS HISTORY OF PRESENT ILLNESS: PAIN THE PATIENT DESCRIBES THE PAIN... 58-YEAR-OLD MALE IN FOR CHRONIC PAIN FOLLOW-UP. RECENT CLINIC VISIT HIS MEDICATION WAS INCREASED AND HE FEELS THIS WAS HELPFUL AND DENIES MED SIDE EFFECTS AT THIS TIME. HE RATES PAIN CURRENTLY AT A 4 OUT OF 10 AND DESCRIBES IT ACHING, SHARP, STABBING, AND SORE. FALL RISK SCREENING: SCREENING :NO FALLS REPORTED IN THE LAST YEAR CURRENT MEDICATIONS TAKING PROBIOTIC MATURE ADULT - CAPSULE 1 CAPSULE ORALLY WITH MEALS TAKING LUMIGAN 0.01 % SOLUTION INSTILL 1 DROP IN EACH EYE AT NIGHT TIME OPHTHALMIC TAKING [employer] ULTRA 2 W/DEVICE KIT 1 E11.42 TAKING LANTUS SOLO STAR PEN NEEDLES 4MM NEEDLES 32 G 1 SUBCUTANEOUS BID 11.42 TAKING JANUVIA 100 MG TABLET 1 TABLET ORALLY ONCE A DAY TAKING DICLOFENAC SODIUM 1 % GEL 1 APPLICATION TO AFFECTED AREA (KNEES,HIP) TRANSDERMAL THREE TIMES DAILY NEEDED TAKING MUCINEX NASAL SPRAY FULL FORCE 1 SPRAY EACH NOSTRIL INTER NASAL TWICE DAILY NEEDED TAKING CARISOPRODOL 350 MG TABLET 1 TABLET NEEDED ORALLY FOR SPASMS AND PAIN EVERY 6 HOURS NEEDED MDD3, NOTES: NOT LATELY TAKING LIDOCAINE 5 % OINTMENT 1 APPLICATION TO AFFECTED AREA NEEDED EXTERNALLY APPLY Q 4-6 HRS PRN PAIN APPLY TO PAINFUL AREA OF FEET/KNEE, NOTES: 05/15 2200 TAKING LIDOCAINE 5 % PATCH DIRECTED EXTERNALLY APPLY 2 PATCHES TO HIP OR BACK ON 12 HOURS OFF 12 HOURS MDD2, NOTES: 05/15 0800 OFF IN THE EVENING TAKING OZEMPIC (0.25 OR 0.5 MG/DOSE) 2 MG/1.5ML SOLUTION PEN-INJECTOR 0.25MGX4 WEEKS THEN 0.5MG SUBCUTANEOUS WEEKLY TAKING PERCOCET 10-325 MG TABLET 1 TABLETS ORALLY EVERY 4 HRS PRN PAIN MDD=6 JOSELYN TAKING LANTUS SOLOSTAR 100 UNIT/ML SOLUTION PEN-INJECTOR INJECT 77 UNITS UNDER THE SKIN AT BEDTIME AND 35 UNITS EVERY MORNING DIRECTED NOT-TAKING PIOGLITAZONE HCL 15 MG TABLET 1 TABLET ORALLY ONCE A DAY NOT-TAKING ONDANSETRON HCL 4 MG TABLET 1-2 TABLETS ORALLY EVERY 8 HOURS NEEDED NOT-TAKING POTASSIUM CHLORIDE ER 20 MEQ TABLET EXTENDED RELEASE 1 TABLET WITH FOOD ORALLY ONCE A DAY MEDICATION LIST REVIEWED AND RECONCILED WITH THE PATIENT PAST MEDICAL HISTORY DIABETES MELLITUS KIDNEY STONES GLAUCOMA PNEUMONIA SHOT GIVEN 05-03-2011 WHILE INPATIENT @ [facility] 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 NEED FOR PROPHYLACTIC VACCINATION AND INOCULATION, INFLUENZA ERECTILE DYSFUNCTION / IMPOTENCE KIDNEY STONE GROSS HEMATURIA 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 ATYPICAL CHEST PAIN ABDOMINAL PAIN DIABETIC TOE ULCER OSTEOARTHRITIS OF HIP OSTEOARTHRITIS OF RIGHT HIP MRSA COLONIZATION FURUNCULOSIS DRY MOUTH SIDE EFFECT WITH INVOKANA CHILDHOOD POLIO AGE APPROX 19 MOS ARTHRITIS IN HANDS AGENT ORANGE EXPOSURE 1982 RIGHT LEG PAIN ALLERGIES MORPHINE SULFATE: NAUSEA/VOMITING - SIDE EFFECTS METFORMIN: HICCUPS - SIDE EFFECTS GABAPENTIN: HALLUCINATIONS - SIDE EFFECTS SURGICAL HISTORY WRIST SURGERY-RIGHT RIGHT KNEE GALLBLADDER 04-22-2014 NEURO STIMULATOR TRAIL 12/2014 NEURO STIMULATOR PLACED 03/2015 FAMILY HISTORY FATHER: , DIAGNOSED WITH DIABETES, OTHER MALIGNANT NEOPLASM OF UNSPECIFIED SITE MOTHER: , DIABETES, UNSPECIFIED CEREBRAL ARTERY OCCLUSION WITH CEREBRAL INFARCTION 2 BROTHER(S) . 1 SON(S) , 1 DAUGHTER(S) . 2 SISTER , FATHER -BLACK LUNG AND KIDNEY CANCER, MOM- STROKE\\NSISTER - COMPLICATIONS FROM DMSISTER - : CANCER. SOCIAL HISTORY GENERAL: TOBACCO USE ARE YOU A:NONSMOKER 06/21/2019 ADDITIONAL FINDINGS: TOBACCO USER NEVER A SMOKER ADDITIONAL FINDINGS: TOBACCO NON-USER NO VAPORNO E-CIGARETTENO HIV / HEP-C SCREENING HIV TEST OFFERED TO PATIENT:YES DATE OFFERED:06/21/2019 TEST ACCEPTED:NO HEP-C TEST OFFERED TO PATIENT:YES DATE OFFERED:06/21/2019 REASON:PATIENT DECLINED TEST ACCEPTED:NO REASON:PATIENT DECLINED TESTED 2013 BROCHURE PROVIDED TO PATIENTNO DECLINES OTHERS AT HOME: SPOUSE. EDUCATION LEVEL OF EDUCATION:COLLEGE DIET: CARBOHYDRATE CONTROLLED. LANGUAGE JORDANIAN. DOMESTIC VIOLENCE DO YOU FEEL SAFE IN YOUR ENVIRONMENT?YES NEW PATIENT PAIN DIARY FROM 0-10, WHAT LEVEL IS YOUR PAIN TODAY?4 BMI CARE GOAL FOLLOW-UP ABOVE NORMAL BMI FOLLOW-UPDIETARY MANAGEMENT EDUCATION, GUIDANCE, AND COUNSELING RECREATIONAL DRUG USE DRUG USE?NO EXERCISE: WALKS. LEARNING BARRIERS / SPECIAL NEEDS CHANGE FROM LAST VISIT?NO 06/21/2019 BARRIERS TO LEARNING?NO HEARING IMPAIRED?NO VISION IMPAIRED?YES COGNITIVELY IMPAIRED?NO :CORRECTIVE LENSES READING READINESS TO LEARN?YES LEARNING PREFERENCES?NO LEARNING CAPABILITIES PRESENT?YES EMOTIONAL BARRIERS?NO SPECIAL DEVICES?NO YARD HOSTLER NEEDED?NO LUNG CANCER SCREENING SMOKING STATUS:NON SMOKER PAIN CLINIC PFS, CLERGY, PUBLIC HEALTH REFERRALS PFS REFERRAL NEEDED?NO CLERGY REFERRAL NEEDED?NO PUBLIC HEALTH REFERRAL NEEDED?NO WAS THE PROVIDER NOTIFIED OF ANY PERTINENT INFO? N/A HAS THE PATIENT BEEN EDUCATED REGARDING HIS/HER PLAN OF CARE?YES HAS THE PATIENT BEEN EDUCATED REGARDING PAIN, THE RISK FOR PAIN, THE IMPORTANCE OF EFFECTIVE PAIN MANAGEMENT, AND THE PAIN ASSESSMENT PROCESS?YES LATEX QUESTIONNAIRE LATEX ALLERGY : HAVE YOU EVER DEVELOPED ANY TYPE OF REACTION AFTER HANDLING LATEX PRODUCTS SUCH RUBBER GLOVES, CONDOMS, DIAPHRAGMS, BALLOONS, SOCKS, OR UNDERWEAR?NO LATEX ALLERGY : HAVE YOU EVER DEVELOPED ANY TYPE OF REACTION DURING OR AFTER DENTAL APPOINTMENT, VAGINAL/RECTAL EXAMINATION, SURGICAL PROCEDURE, OR ANY OTHER EXPOSURE?NO DATE ASKED : 06/21/2019 LATEX RISK : HAVE YOU EVER HAD ANY DIFFICULTY BREATHING OR HIVES AFTER EATING OR HANDLING ANY FRUITS, OR VEGETABLES; SUCH KIWI, BANANAS, STONE FRUITS, OR CHESTNUTSNO LATEX RISK : DO YOU HAVE A PREVIOUS PERSONAL HISTORY OF MORE THAN NINE SURGERIES, SPINA BIFIDA, OR REPEATED CATHERIZATIONS? NO LATEX RISK : ARE YOU FREQUENTLY EXPOSED TO LATEX PRODUCTS IN YOUR OCCUPATION?NO CAFFEINE CAFFEINE USE?YES HOW OFTEN AND HOW MUCH? 1-2 CUPS COFFEE/DAY ADVANCE DIRECTIVE ADVANCE DIRECTIVE DISCUSSED WITH PATIENT:YES PATIENT STATES HE HAS HCP INFORMATION AT HOME, DECLINED ASSISTANCE WITH FILLING OUT PAPERWORK AT THIS TIME. CAODAISM [id number] NONE MARITAL STATUS: . 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 SEXUAL HX HAD SEX IN THE LAST 12 MONTHS (VAGINAL, ORAL, OR ANAL)?YES WITHWOMEN ONLY PREVENTION STRATEGIES DISCUSSED:OTHER USE PROTECTION?NO HAVE YOU EVER HAD AN STD?NO REVIEWED WITH PATIENT 07/13/18 5129 JSREVIEWED WITH PATIENT 11/23/18 0952 JSREVIEWED WITH PT 03/26/19 0924 BV. HOSPITALIZATION/MAJOR DIAGNOSTIC PROCEDURE ABSCESS AROUND RIGHT KIDNEY 05/2011 COLON BLOCKAGE @ [facility] A[facility] [id number] [facility] ABDOMINAL PAIN SECONDARY TO MESENTERIC ADENITIS AUG 21 [facility] ER -ABD.PAIN-GALLSTONES 12/21/13 [facility] ENTEROCOLITIS 01/2019 REVIEW OF SYSTEMS REVIEWED BY: PROVIDER: STONEY MATOS . CONSTITUTIONAL: ANY CHANGE IN YOUR MEDICAL CONDITION? NO . CHILLS NO . FEVER NO . INFECTION: DO YOU HAVE NEW INFECTIONS? NO . DO YOU HAVE HISTORY OF MRSA? NO . MUSCULOSKELETAL: ANY NEW PATTERNS OF PAIN OR NUMBNESS? NO . GASTROENTEROLOGY: ANY NEW CHANGE IN BOWEL CONTROL? NO . GENITOURINARY: ANY NEW CHANGE IN BLADDER CONTROL? NO . IS THERE A CHANCE YOU COULD BE ? NO . HEMATOLOGY/LYMPH: DO YOU TAKE ANY BLOOD THINNERS? (FOR EXAMPLE- COUMADIN, PLAVIX, AGGRENOX, PLATEL, PRADAXA, OR XARELTO) NO . WHEN WAS YOUR LAST DOSE? DATE: TIME: . NEUROLOGY: HAVE YOU FALLEN IN THE PAST 12 MONTHS? YES PT VERBALIZES HE HAS " FALLS ALL THE TIME" . ANY NEW EXTREMITY NUMBNESS OR WEAKNESS? NO . CARDIOLOGY: DO YOU HAVE A PACEMAKER OR DEFIBRILLATOR? NO . RESPIRATORY: HAVE YOU BEEN SICK IN THE PAST WEEK? NO . FEVER NO . FLU LIKE SYMPTOMS? NO . COUGH NO . INTEGUMENTARY: DO YOU HAVE ANY RASHES OR OPEN SORES? NO . ALLERGIC/IMMUNO: ARE YOU ALLERGIC TO IV DYE? NO . ANY NEW ALLERGIES? NO . PSYCHIATRIC: DO YOU HAVE THOUGHTS OF HURTING YOURSELF OR SOMEONE ELSE? NO . ARE YOU ABUSED, NEGLECTED, OR IN AN UNSAFE ENVIRONMENT? NO . ENDOCRINOLOGY: ARE YOU DIABETIC? YES . OTHER: DO YOU NEED ANY PRESCRIPTIONS? NO . IF YES, PLEASE LIST: ____ . ANY NEW PROBLEMS WITH YOUR MEDICATIONS? NO . WHEN DID YOU LAST EAT? ____ . WHEN DID YOU LAST DRINK? ____ . WHAT DID YOU LAST DRINK? ____ . NAME OF PERSON DRIVING YOU HOME? ____ . DO YOU HAVE ANY OTHER QUESTIONS OR CONCERNS NO . EXAMINATION GENERAL EXAMINATION: GENERALNO ACUTE DISTRESS, WELL NOURISHED AND HYDRATED. PSYCHAPPROPRIATE MOOD AND AFFECT . LUNGS:CLEAR TO AUSCULTATION BILATERALLY, NO WHEEZES, RHONCHI, RALES. HEART:NO MURMURS, REGULAR RATE AND RHYTHM. ASSESSMENTS HIP PAIN, RIGHT - M25.551 (PRIMARY) TREATMENT HIP PAIN, RIGHT CONTINUE PERCOCET TABLET, 10-325 MG, 1 TABLETS, ORALLY, EVERY 4 HRS PRN PAIN MDD=6, 30 DAYS, 180 CLINICAL NOTES: 58-YEAR-OLD MALE IN FOR CHRONIC PAIN FOLLOW-UP. GIVEN PRESENTING SYMPTOMS AND RESULTS OF PHYSICAL EXAMINATION RECOMMENDED CONTINUATION CURRENT MEDICATION REGIMEN WITH FOLLOW-UP IN 3 MONTHS. PATIENT HAS EXPRESSED UNDERSTANDING OF AND WAS IN AGREEMENT WITH TREATMENT PLAN. GIVEN TIME TO ASK QUESTIONS AND EXPRESS CONCERNS., ISTOP REGISTRY REVIEWED AND DEMONSTRATES COMPLLIANCE. (REF #[id number] ) BRINGS IN MEDICATIONS WHICH IS APPROPRIATE FOR WHAT WAS DISPENSED. RECENT URINE TOXICOLOGY REVIEWED. NO UNAUTHORIZED MEDICATIONS. NO ILLICIT SUBSTANCES AND PRESCRIBED MEDICATIONS WERE PRESENT. PROCEDURE CODES FA211 ESTABILISHED PATIENT [facility] CHARGE DISPOSITION & COMMUNICATION FOLLOW UP 3 MONTHS (REASON: HIP PAIN) ELECTRONICALLY SIGNED BY ANA DUONG ON 08/07/2019 AT 03:00 PM EST DISCLAIMER : THIS IS A VISIT SUMMARY EXTRACTED FROM THE [employer] CHART. IT IS NOT A COPY OF THE [employer] PROGRESS NOTE. EVAN
== END ==
LOC: M PAIN 11:30
PROVIDERS: ATTEND Family Medicine
DX: M25.551 Pain in right hip (principal); G89.29 Other chronic pain; E11.42 Type 2 diabetes mellitus with diabetic polyneuropathy; Z86.14 Personal history of Methicillin resistant Staphylococcus aureus infection; Z88.5 Allergy status to narcotic agent; Z88.8 Allergy status to other drugs, medicaments and biological substances; Z79.4 Long term (current) use of insulin; Z79.891 Long term (current) use of opiate analgesic; Z79.899 Other long term (current) drug therapy

== ENCOUNTER → 2019-11-04 | Outpatient (CLI) | payer BC ==
--- NOTE | 2019-11-06 04:55 | ECWPNPC ---
PATIENT NAME: KHANH GEORGE : 1960 GENDER: MALE VISIT DATE: 11/04/2019 DISCHARGE DATE: 11/04/19 1136 VISIT LOCKED DATE TIME: PHYSICIAN: CHAPIS TOSCANO PHYSICIAN PAGER NO: [phone] RESOURCE: CHAPIS TOSCANO REASON FOR APPOINTMENT 1. RIGHT HIP HISTORY OF PRESENT ILLNESS HISTORY OF PRESENT ILLNESS: PAIN THE PATIENT DESCRIBES THE PAIN... PERMISSION REQUESTED AND RECEIVED FROM PATIENT TO PERFORM TELEPHONE VISIT. 59-YEAR-OLD MALE IN FOR CHRONIC PAIN FOLLOW-UP. HE RATES HIS PAIN CURRENTLY AT A 6 OUT OF 10 AND DESCRIBES IT STABBING. HE FEELS MEDICATIONS ARE HELPFUL BUT WOULD LIKE TO DISCUSS OTHER MEDICATIONS TO HELP BETTER MANAGE HIS PAIN. FALL RISK SCREENING: SCREENING :NO FALLS REPORTED IN THE LAST YEAR CURRENT MEDICATIONS TAKING PROBIOTIC MATURE ADULT - CAPSULE 1 CAPSULE ORALLY WITH MEALS TAKING LUMIGAN 0.01 % SOLUTION INSTILL 1 DROP IN EACH EYE AT NIGHT TIME OPHTHALMIC TAKING [employer] ULTRA 2 W/DEVICE KIT 1 E11.42 TAKING JANUVIA 100 MG TABLET 1 TABLET ORALLY ONCE A DAY TAKING DICLOFENAC SODIUM 1 % GEL 1 APPLICATION TO AFFECTED AREA (KNEES,HIP) TRANSDERMAL THREE TIMES DAILY NEEDED TAKING MUCINEX NASAL SPRAY FULL FORCE 1 SPRAY EACH NOSTRIL INTER NASAL TWICE DAILY NEEDED TAKING OZEMPIC (0.25 OR 0.5 MG/DOSE) 2 MG/1.5ML SOLUTION PEN-INJECTOR 0.25MGX4 WEEKS THEN 0.5MG SUBCUTANEOUS WEEKLY TAKING LIDOCAINE 5 % OINTMENT 1 APPLICATION TO AFFECTED AREA NEEDED EXTERNALLY APPLY Q 4-6 HRS PRN PAIN APPLY TO PAINFUL AREA OF FEET/KNEE, NOTES: 05/15 2200 TAKING LIDOCAINE 5 % PATCH DIRECTED EXTERNALLY APPLY 2 PATCHES TO HIP OR BACK ON 12 HOURS OFF 12 HOURS MDD2, NOTES: 05/15 0800 OFF IN THE EVENING TAKING PERCOCET 10-325 MG TABLET 1 TABLETS ORALLY EVERY 4 HRS PRN PAIN MDD=6 TAKING LANTUS SOLOSTAR 100 UNIT/ML SOLUTION PEN-INJECTOR INJECT 77 UNITS UNDER THE SKIN AT BEDTIME AND 35 UNITS EVERY MORNING DIRECTED TAKING LANTUS SOLO STAR PEN NEEDLES 4MM NEEDLES 32 G 1 SUBCUTANEOUS BID 11.42 TAKING MULTI COMPLETE - CAPSULE DIRECTED ORALLY DAILY TAKING VITAMIN B COMPLEX - TABLET DIRECTED ORALLY DAILY NOT-TAKING CARISOPRODOL 350 MG TABLET 1 TABLET NEEDED ORALLY FOR SPASMS AND PAIN EVERY 6 HOURS NEEDED MDD3, NOTES: NOT LATELY NOT-TAKING PIOGLITAZONE HCL 15 MG TABLET 1 TABLET ORALLY ONCE A DAY NOT-TAKING ONDANSETRON HCL 4 MG TABLET 1-2 TABLETS ORALLY EVERY 8 HOURS NEEDED NOT-TAKING POTASSIUM CHLORIDE ER 20 MEQ TABLET EXTENDED RELEASE 1 TABLET WITH FOOD ORALLY ONCE A DAY MEDICATION LIST REVIEWED AND RECONCILED WITH THE PATIENT PAST MEDICAL HISTORY DIABETES MELLITUS KIDNEY STONES GLAUCOMA PNEUMONIA SHOT GIVEN 05-03-2011 WHILE INPATIENT @ [facility] 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 NEED FOR PROPHYLACTIC VACCINATION AND INOCULATION, INFLUENZA ERECTILE DYSFUNCTION / IMPOTENCE KIDNEY STONE GROSS HEMATURIA 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 ATYPICAL CHEST PAIN ABDOMINAL PAIN DIABETIC TOE ULCER OSTEOARTHRITIS OF HIP OSTEOARTHRITIS OF RIGHT HIP MRSA COLONIZATION FURUNCULOSIS DRY MOUTH SIDE EFFECT WITH INVOKANA CHILDHOOD POLIO AGE APPROX 19 MOS ARTHRITIS IN HANDS AGENT ORANGE EXPOSURE 1982 RIGHT LEG PAIN ALLERGIES MORPHINE SULFATE: NAUSEA/VOMITING - SIDE EFFECTS METFORMIN: HICCUPS - SIDE EFFECTS GABAPENTIN: HALLUCINATIONS - SIDE EFFECTS SURGICAL HISTORY WRIST SURGERY-RIGHT RIGHT KNEE GALLBLADDER 04-22-2014 NEURO STIMULATOR TRAIL 12/2014 NEURO STIMULATOR PLACED 03/2015 FAMILY HISTORY FATHER: , DIAGNOSED WITH DIABETES, OTHER MALIGNANT NEOPLASM OF UNSPECIFIED SITE MOTHER: , DIABETES, UNSPECIFIED CEREBRAL ARTERY OCCLUSION WITH CEREBRAL INFARCTION 2 BROTHER(S) . 1 SON(S) , 1 DAUGHTER(S) . 2 SISTER , FATHER -BLACK LUNG AND KIDNEY CANCER, MOM- STROKE\NSISTER - COMPLICATIONS FROM DMSISTER - : CANCER. SOCIAL HISTORY GENERAL: TOBACCO USE ARE YOU A:NONSMOKER 06/21/2019 ADDITIONAL FINDINGS: TOBACCO USER NEVER A SMOKER ADDITIONAL FINDINGS: TOBACCO NON-USER NO VAPORNO E-CIGARETTENO LATEX QUESTIONNAIRE LATEX ALLERGY : HAVE YOU EVER DEVELOPED ANY TYPE OF REACTION AFTER HANDLING LATEX PRODUCTS SUCH RUBBER GLOVES, CONDOMS, DIAPHRAGMS, BALLOONS, SOCKS, OR UNDERWEAR?NO LATEX ALLERGY : HAVE YOU EVER DEVELOPED ANY TYPE OF REACTION DURING OR AFTER DENTAL APPOINTMENT, VAGINAL/RECTAL EXAMINATION, SURGICAL PROCEDURE, OR ANY OTHER EXPOSURE?NO LATEX RISK : HAVE YOU EVER HAD ANY DIFFICULTY BREATHING OR HIVES AFTER EATING OR HANDLING ANY FRUITS, OR VEGETABLES; SUCH KIWI, BANANAS, STONE FRUITS, OR CHESTNUTSNO LATEX RISK : DO YOU HAVE A PREVIOUS PERSONAL HISTORY OF MORE THAN NINE SURGERIES, SPINA BIFIDA, OR REPEATED CATHERIZATIONS? NO LATEX RISK : ARE YOU FREQUENTLY EXPOSED TO LATEX PRODUCTS IN YOUR OCCUPATION?NO DATE ASKED : 11/01/2019 LUNG CANCER SCREENING SMOKING STATUS:NON SMOKER BMI CARE GOAL FOLLOW-UP ABOVE NORMAL BMI FOLLOW-UPDIETARY MANAGEMENT EDUCATION, GUIDANCE, AND COUNSELING ALCOHOL SCREENING DID YOU HAVE A DRINK CONTAINING ALCOHOL IN THE PAST YEAR?YES HOW OFTEN DID YOU HAVE SIX OR MORE DRINKS ON ONE OCCASION IN THE PAST YEAR?NEVER (0 POINTS) HOW MANY DRINKS DID YOU HAVE ON A TYPICAL DAY WHEN YOU WERE DRINKING IN THE PAST YEAR?1 OR 2 (0 POINTS) HOW OFTEN DID YOU HAVE A DRINK CONTAINING ALCOHOL IN THE PAST YEAR?MONTHLY OR LESS (1 POINT) POINTS1 INTERPRETATIONNEGATIVE RECREATIONAL DRUG USE DRUG USE?NO CAFFEINE CAFFEINE USE?YES HOW OFTEN AND HOW MUCH? 1-2 CUPS COFFEE/DAY SEXUAL HX HAD SEX IN THE LAST 12 MONTHS (VAGINAL, ORAL, OR ANAL)?YES WITHWOMEN ONLY PREVENTION STRATEGIES DISCUSSED:OTHER USE PROTECTION?NO HAVE YOU EVER HAD AN STD?NO HIV / HEP-C SCREENING HIV TEST OFFERED TO PATIENT:YES DATE OFFERED:06/21/2019 TEST ACCEPTED:NO HEP-C TEST OFFERED TO PATIENT:YES DATE OFFERED:06/21/2019 REASON:PATIENT DECLINED TEST ACCEPTED:NO REASON:PATIENT DECLINED TESTED 2013 BROCHURE PROVIDED TO PATIENTNO DECLINES SIKHISM [id number] NONE LANGUAGE GABONESE. 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 DIET: CARBOHYDRATE CONTROLLED. EXERCISE: WALKS. MARITAL STATUS: . OTHERS AT HOME: SPOUSE. NEW PATIENT PAIN DIARY TODAY'S VISITNOTES 11/01/2019 PATIENT DESCRIBES PAIN :HAVE IT ALL THE TIME, THROBBING, SORE FROM 0-10, WHAT LEVEL IS YOUR PAIN TODAY?8 PRECIPITATING FACTORS WEATHER, ACTIVITY ALLEVIATING FACTORS PERCOCET, HEAT PAIN CLINIC PFS, CLERGY, PUBLIC HEALTH REFERRALS PFS REFERRAL NEEDED?NO CLERGY REFERRAL NEEDED?NO PUBLIC HEALTH REFERRAL NEEDED?NO WAS THE PROVIDER NOTIFIED OF ANY PERTINENT INFO? N/A HAS THE PATIENT BEEN EDUCATED REGARDING HIS/HER PLAN OF CARE?YES HAS THE PATIENT BEEN EDUCATED REGARDING PAIN, THE RISK FOR PAIN, THE IMPORTANCE OF EFFECTIVE PAIN MANAGEMENT, AND THE PAIN ASSESSMENT PROCESS?YES ADVANCE DIRECTIVE ADVANCE DIRECTIVE DISCUSSED WITH PATIENT:YES PATIENT STATES HE HAS HCP INFORMATION AT HOME, DECLINED ASSISTANCE WITH FILLING OUT PAPERWORK AT THIS TIME. 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 CONSTITUTIONAL: ANY CHANGE IN YOUR MEDICAL CONDITION? NO . CHILLS NO . FEVER NO . INFECTION: DO YOU HAVE NEW INFECTIONS? NO . DO YOU HAVE HISTORY OF MRSA? NO . MUSCULOSKELETAL: ANY NEW PATTERNS OF PAIN OR NUMBNESS? YES, NEW PAIN TO THE MIDDLE OF HIS LEFT LIRIANO THAT STARTED APPROX 1 MONTH AGO . GASTROENTEROLOGY: ANY NEW CHANGE IN BOWEL CONTROL? NO . GENITOURINARY: ANY NEW CHANGE IN BLADDER CONTROL? NO . IS THERE A CHANCE YOU COULD BE ? NO . HEMATOLOGY/LYMPH: DO YOU TAKE ANY BLOOD THINNERS? (FOR EXAMPLE- COUMADIN, PLAVIX, AGGRENOX, PLATEL, PRADAXA, OR XARELTO) NO . WHEN WAS YOUR LAST DOSE? DATE: TIME: . NEUROLOGY: HAVE YOU FALLEN IN THE PAST 12 MONTHS? YES, STATES MULTIPLE FALLS DUE TO NUMBNESS IN FEET, NO MAJOR INJURIES, NO ED VISITS . ANY NEW EXTREMITY NUMBNESS OR WEAKNESS? NO . CARDIOLOGY: DO YOU HAVE A PACEMAKER OR DEFIBRILLATOR? NO, DCS . RESPIRATORY: HAVE YOU BEEN SICK IN THE PAST WEEK? NO . FEVER NO . FLU LIKE SYMPTOMS? NO . COUGH NO . INTEGUMENTARY: DO YOU HAVE ANY RASHES OR OPEN SORES? NO . ALLERGIC/IMMUNO: ARE YOU ALLERGIC TO IV DYE? NO . ANY NEW ALLERGIES? NO . PSYCHIATRIC: DO YOU HAVE THOUGHTS OF HURTING YOURSELF OR SOMEONE ELSE? NO . ARE YOU ABUSED, NEGLECTED, OR IN AN UNSAFE ENVIRONMENT? NO . ENDOCRINOLOGY: ARE YOU DIABETIC? YES . OTHER: DO YOU NEED ANY PRESCRIPTIONS? YES . IF YES, PLEASE LIST: ____PERCOCET . ANY NEW PROBLEMS WITH YOUR MEDICATIONS? NO . WHEN DID YOU LAST EAT? ____ . WHEN DID YOU LAST DRINK? ____ . WHAT DID YOU LAST DRINK? ____ . NAME OF PERSON DRIVING YOU HOME? ____ . DO YOU HAVE ANY OTHER QUESTIONS OR CONCERNS YES, WOULD LIKE TO DISCUSS ADDING TRAMADOL FOR INCREASED PAIN HE IS EXPERIENCING CURRENTLY . EXAMINATION GENERAL EXAMINATION: PSYCHAPPROPRIATE MOOD AND AFFECT , ORIENTED X 3. ASSESSMENTS HIP PAIN, RIGHT - M25.551 (PRIMARY) TREATMENT HIP PAIN, RIGHT REFILL PERCOCET TABLET, 10-325 MG, 1 TABLETS, ORALLY, EVERY 4 HRS PRN PAIN MDD=6, 30 DAYS, 180 START TIZANIDINE HCL TABLET, 4 MG, 1 TABLET NEEDED, ORALLY, THREE TIMES A DAY, 30 DAYS, 90 TABLET CLINICAL NOTES: 59-YEAR-OLD MALE IN FOR CHRONIC PAIN FOLLOW-UP. GIVEN PRESENTING SYMPTOMS RECOMMEND ADDING TIZANIDINE 4 MG 3 TIMES A DAY WITH FOLLOW-UP IN 2 MONTHS TO DETERMINE EFFICACY TREATMENT. PATIENT HAS EXPRESSED UNDERSTANDING OF AND WAS IN AGREEMENT WITH TREATMENT PLAN. GIVEN TIME TO ASK QUESTIONS AND EXPRESS CONCERNS. , ISTOP REGISTRY REVIEWED AND DEMONSTRATES COMPLLIANCE. (REF # [id number] ) BRINGS IN MEDICATIONS WHICH IS APPROPRIATE FOR WHAT WAS DISPENSED. RECENT URINE TOXICOLOGY REVIEWED. NO UNAUTHORIZED MEDICATIONS. NO ILLICIT SUBSTANCES AND PRESCRIBED MEDICATIONS WERE PRESENT. VISIT TO BE BILLED BASED ON TIME SPENT WITH PATIENT. TIME SPENT WITH PATIENT 11 MINUTES. OTHERS NOTES: VITALS NOT OBTAINED DUE TO VIRTUAL VISIT. PRE-SCREENING COMPLETED 11/01/2019 1630 JS. DISPOSITION & COMMUNICATION FOLLOW UP 2 MONTHS (REASON: HIP PAIN) ELECTRONICALLY SIGNED BY ANA DUONG ON 11/05/2019 AT 02:37 PM EDT DISCLAIMER : THIS IS A VISIT SUMMARY EXTRACTED FROM THE [employer] CHART. IT IS NOT A COPY OF THE [employer] PROGRESS NOTE. MTDD
== END ==
LOC: M PAIN 11:00
PROVIDERS: ATTEND Family Medicine
DX: M25.551 Pain in right hip (principal); G89.29 Other chronic pain; E11.42 Type 2 diabetes mellitus with diabetic polyneuropathy; Z86.14 Personal history of Methicillin resistant Staphylococcus aureus infection; Z88.5 Allergy status to narcotic agent; Z88.8 Allergy status to other drugs, medicaments and biological substances; Z79.4 Long term (current) use of insulin; Z79.891 Long term (current) use of opiate analgesic; Z79.899 Other long term (current) drug therapy

== ENCOUNTER → 2020-06-18 | Outpatient (CLI) | payer BC ==
--- NOTE | 2020-06-22 23:47 | ECWPNPC ---
PATIENT NAME: KHANH GEORGE : 1960 GENDER: MALE VISIT DATE: 06/18/2020 DISCHARGE DATE: 06/18/20 1205 VISIT LOCKED DATE TIME: PHYSICIAN: CHAPIS TOSCANO PHYSICIAN PAGER NO: ACTIVE RESOURCE: CHAPIS TOSCANO REASON FOR APPOINTMENT 1. MED MANAGEMENT - NEEDS UTOX HISTORY OF PRESENT ILLNESS GENERAL: - 59-YEAR-OLD MALE IN FOR CHRONIC PAIN FOLLOW-UP. HE FEELS MEDICATIONS ARE HELPFUL AND DENIES MED SIDE EFFECTS AT THIS TIME. HE RATES HIS PAIN CURRENTLY AT A 5 OUT OF 10 AND DESCRIBES IT ACHING, BURNING, SHARP, STABBING, THROBBING, AND SHOOTING. FALL RISK SCREENING: SCREENING :ONE FALL WITHOUT INJURY IN THE PAST YEAR PAIN SCREENING: PATIENT HAS A COMPLAINT OF ACUTE OR CHRONIC PAIN :YES LOCATION OF PAIN:LEG(S), FEET INTENSITY OF PAIN (SCALE OF 1 TO 10):5 WHAT DOES YOUR PAIN FEEL LIKE:ACHING, BURNING, SHARP, STABBING, THROBBING, SHOOTING DURATION:CONTINOUS, CONSTANT PAIN IS INCREASED BY:OTHERS WEATHER AND PAIN INCREASES QD @ 1600 PAIN IS DECREASED BY:USE OF PAIN MEDICATIONS TREATMENT/MEDICATIONS USED TO MANAGE PAIN:OPIOIDS LEVEL OF RELIEF FROM PAIN TREATMENTS IN THE PAST:50% PAIN HAS INTERFERED WITH THE FOLLOWING:BATHING/DRESSING, WALKING ABILITY, EMPLOYMENT, HOUSEWORK, SLEEP, TRANSPORTATION, TOILETING NURSING NOTE: -. PAIN CENTER INTAKE QUESTIONS: DO YOU HAVE A HISTORY OF MRSA? :YES FACE AND HEAD 2011 DO YOU TAKE A BLOOD THINNERS? :NO DO YOU HAVE ANY BLEEDING DISORDERS? :NO ANY NEW NUMBNESS OR WEAKNESS IN YOUR LEGS OR ARMS? :YES PINS AND NEEDLES BILAT ARMS AND UPPER BACK ANY PACEMAKER,DEFIBRILLATOR, OR DORSAL COLUMN STIMULATOR? :YES DORSAL COLUMN STIMULATOR DO YOU HAVE ANY RASHES OR OPEN SORES? :YES SORES TO SCALP ARE YOU ALLERGIC TO IV DYE? :NO ARE YOU DIABETIC? :YES ANY NEW PROBLEMS WITH YOUR MEDICATIONS? :NO HAVE YOU RECEIVED A VACCINE IN THE PAST 30 DAYS? :NO DO YOU PLAN TO RECEIVE A VACCINE IN THE NEXT 21 DAYS? :YES IF SO WHAT VACCINE AND WHEN? MAYBE FLU VACCINE DO YOU NEED ANY PRESCRIPTION? :NO DO YOU TAKE ANY IMMUNOSUPPRESSIVE MEDICATIONS? :NO IS THERE A CHANCE YOU COULD BE ? :NO ARE YOU BREAST FEEDING? :NO CURRENT MEDICATIONS TAKING LUMIGAN 0.01 % SOLUTION INSTILL 1 DROP IN EACH EYE AT NIGHT TIME OPHTHALMIC TAKING ONETOUCH ULTRA 2 W/DEVICE KIT 1 E11.42 TAKING JANUVIA 100 MG TABLET 1 TABLET ORALLY ONCE A DAY TAKING DICLOFENAC SODIUM 1 % GEL 1 APPLICATION TO AFFECTED AREA (KNEES,HIP) TRANSDERMAL THREE TIMES DAILY NEEDED TAKING MUCINEX NASAL SPRAY FULL FORCE 1 SPRAY EACH NOSTRIL INTER NASAL TWICE DAILY NEEDED TAKING LANTUS SOLO STAR PEN NEEDLES 4MM NEEDLES 32 G 1 SUBCUTANEOUS BID 11.42 TAKING MULTI COMPLETE - CAPSULE DIRECTED ORALLY DAILY TAKING VITAMIN B COMPLEX - TABLET DIRECTED ORALLY DAILY TAKING LANTUS SOLOSTAR 100 UNIT/ML SOLUTION PEN-INJECTOR INJECT 77 UNITS AT BEDTIME DIRECTED TAKING TIZANIDINE HCL 4 MG TABLET 1 TABLET NEEDED ORALLY THREE TIMES A DAY TAKING LIDOCAINE 5 % OINTMENT 1 APPLICATION TO AFFECTED AREA NEEDED EXTERNALLY APPLY Q 4-6 HRS PRN PAIN APPLY TO PAINFUL AREA OF FEET/KNEE TAKING LIDOCAINE 5 % PATCH DIRECTED EXTERNALLY APPLY 2 PATCHES TO HIP OR BACK ON 12 HOURS OFF 12 HOURS MDD2 TAKING PERCOCET 10-325 MG TABLET 1 TABLETS ORALLY EVERY 4 HRS PRN PAIN MDD=6 NOT-TAKING OZEMPIC (0.25 OR 0.5 MG/DOSE) 2 MG/1.5ML SOLUTION PEN-INJECTOR 0.25MGX4 WEEKS THEN 0.5MG SUBCUTANEOUS WEEKLY NOT-TAKING PROBIOTIC MATURE ADULT - CAPSULE 1 CAPSULE ORALLY WITH MEALS NOT-TAKING CARISOPRODOL 350 MG TABLET 1 TABLET NEEDED ORALLY FOR SPASMS AND PAIN EVERY 6 HOURS NEEDED MDD3, NOTES: NOT LATELY NOT-TAKING PIOGLITAZONE HCL 15 MG TABLET 1 TABLET ORALLY ONCE A DAY NOT-TAKING ONDANSETRON HCL 4 MG TABLET 1-2 TABLETS ORALLY EVERY 8 HOURS NEEDED NOT-TAKING POTASSIUM CHLORIDE ER 20 MEQ TABLET EXTENDED RELEASE 1 TABLET WITH FOOD ORALLY ONCE A DAY MEDICATION LIST REVIEWED AND RECONCILED WITH THE PATIENT PAST MEDICAL HISTORY DIABETES MELLITUS KIDNEY STONES GLAUCOMA PNEUMONIA SHOT GIVEN 05-03-2011 WHILE INPATIENT @ [facility] 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 NEED FOR PROPHYLACTIC VACCINATION AND INOCULATION, INFLUENZA ERECTILE DYSFUNCTION / IMPOTENCE KIDNEY STONE GROSS HEMATURIA 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 ATYPICAL CHEST PAIN ABDOMINAL PAIN DIABETIC TOE ULCER OSTEOARTHRITIS OF HIP OSTEOARTHRITIS OF RIGHT HIP MRSA COLONIZATION FURUNCULOSIS DRY MOUTH SIDE EFFECT WITH INVOKANA CHILDHOOD POLIO AGE APPROX 19 MOS ARTHRITIS IN HANDS AGENT ORANGE EXPOSURE 1981 RIGHT LEG PAIN ALLERGIES MORPHINE SULFATE: NAUSEA/VOMITING - SIDE EFFECTS METFORMIN: HICCUPS - SIDE EFFECTS GABAPENTIN: HALLUCINATIONS - SIDE EFFECTS SURGICAL HISTORY WRIST SURGERY-RIGHT RIGHT KNEE GALLBLADDER 04-22-2014 NEURO STIMULATOR TRAIL 12/2014 NEURO STIMULATOR PLACED 03/2015 FAMILY HISTORY FATHER: , DIAGNOSED WITH OTHER MALIGNANT NEOPLASM OF UNSPECIFIED SITE, DIABETES MOTHER: , DIABETES, UNSPECIFIED CEREBRAL ARTERY OCCLUSION WITH CEREBRAL INFARCTION 2 BROTHER(S) . 1 SON(S) , 1 DAUGHTER(S) . 2 SISTER , FATHER -BLACK LUNG AND KIDNEY CANCER, MOM- STROKE\NSISTER - COMPLICATIONS FROM DMSISTER - : CANCER. SOCIAL HISTORY GENERAL: TOBACCO USE ARE YOU A:NONSMOKER 06/21/2019 ADDITIONAL FINDINGS: TOBACCO USER NEVER A SMOKER ADDITIONAL FINDINGS: TOBACCO NON-USER NO VAPORNO E-CIGARETTENO LATEX QUESTIONNAIRE LATEX ALLERGY : HAVE YOU EVER DEVELOPED ANY TYPE OF REACTION AFTER HANDLING LATEX PRODUCTS SUCH RUBBER GLOVES, CONDOMS, DIAPHRAGMS, BALLOONS, SOCKS, OR UNDERWEAR?NO LATEX ALLERGY : HAVE YOU EVER DEVELOPED ANY TYPE OF REACTION DURING OR AFTER DENTAL APPOINTMENT, VAGINAL/RECTAL EXAMINATION, SURGICAL PROCEDURE, OR ANY OTHER EXPOSURE?NO DATE ASKED : 11/01/2019 LATEX RISK : HAVE YOU EVER HAD ANY DIFFICULTY BREATHING OR HIVES AFTER EATING OR HANDLING ANY FRUITS, OR VEGETABLES; SUCH KIWI, BANANAS, STONE FRUITS, OR CHESTNUTSNO LATEX RISK : DO YOU HAVE A PREVIOUS PERSONAL HISTORY OF MORE THAN NINE SURGERIES, SPINA BIFIDA, OR REPEATED CATHERIZATIONS? NO LATEX RISK : ARE YOU FREQUENTLY EXPOSED TO LATEX PRODUCTS IN YOUR OCCUPATION?NO LUNG CANCER SCREENING SMOKING STATUS:NON SMOKER BMI CARE GOAL FOLLOW-UP ABOVE NORMAL BMI FOLLOW-UPDIETARY MANAGEMENT EDUCATION, GUIDANCE, AND COUNSELING ALCOHOL SCREENING DID YOU HAVE A DRINK CONTAINING ALCOHOL IN THE PAST YEAR?YES HOW OFTEN DID YOU HAVE SIX OR MORE DRINKS ON ONE OCCASION IN THE PAST YEAR?NEVER (0 POINTS) HOW MANY DRINKS DID YOU HAVE ON A TYPICAL DAY WHEN YOU WERE DRINKING IN THE PAST YEAR?1 OR 2 (0 POINTS) HOW OFTEN DID YOU HAVE A DRINK CONTAINING ALCOHOL IN THE PAST YEAR?MONTHLY OR LESS (1 POINT) POINTS1 INTERPRETATIONNEGATIVE RECREATIONAL DRUG USE DRUG USE?NO CAFFEINE CAFFEINE USE?YES HOW OFTEN AND HOW MUCH? 1-2 CUPS COFFEE/DAY SEXUAL HX HAD SEX IN THE LAST 12 MONTHS (VAGINAL, ORAL, OR ANAL)?YES WITHWOMEN ONLY PREVENTION STRATEGIES DISCUSSED:OTHER USE PROTECTION?NO HAVE YOU EVER HAD AN STD?NO HIV / HEP-C SCREENING HIV TEST OFFERED TO PATIENT:YES DATE OFFERED:06/21/2019 TEST ACCEPTED:NO HEP-C TEST OFFERED TO PATIENT:YES DATE OFFERED:06/21/2019 REASON:PATIENT DECLINED TEST ACCEPTED:NO REASON:PATIENT DECLINED TESTED 2013 BROCHURE PROVIDED TO PATIENTNO DECLINES PRESYBETERIAN [id number] NONE LANGUAGE ZIMBABWEAN. 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 DIET: CARBOHYDRATE CONTROLLED. EXERCISE: WALKS. MARITAL STATUS: . OTHERS AT HOME: SPOUSE. TODAY'S VISITNOTES 11/01/2019 PATIENT DESCRIBES PAIN :HAVE IT ALL THE TIME, THROBBING, SORE FROM 0-10, WHAT LEVEL IS YOUR PAIN TODAY?8 PRECIPITATING FACTORS WEATHER, ACTIVITY ALLEVIATING FACTORS PERCOCET, HEAT PAIN CLINIC PFS, CLERGY, PUBLIC HEALTH REFERRALS PFS REFERRAL NEEDED?NO CLERGY REFERRAL NEEDED?NO PUBLIC HEALTH REFERRAL NEEDED?NO WAS THE PROVIDER NOTIFIED OF ANY PERTINENT INFO? N/A HAS THE PATIENT BEEN EDUCATED REGARDING HIS/HER PLAN OF CARE?YES HAS THE PATIENT BEEN EDUCATED REGARDING PAIN, THE RISK FOR PAIN, THE IMPORTANCE OF EFFECTIVE PAIN MANAGEMENT, AND THE PAIN ASSESSMENT PROCESS?YES ADVANCE DIRECTIVE ADVANCE DIRECTIVE DISCUSSED WITH PATIENT:YES PATIENT STATES HE HAS HCP INFORMATION AT HOME, DECLINED ASSISTANCE WITH FILLING OUT PAPERWORK AT THIS TIME. HOSPITALIZATION/MAJOR DIAGNOSTIC PROCEDURE ABSCESS AROUND RIGHT KIDNEY 05/2011 COLON BLOCKAGE @ [facility] AUG [id number] [facility] ABDOMINAL PAIN SECONDARY TO MESENTERIC ADENITIS AUG 21 [facility] ER -ABD.PAIN-GALLSTONES 12/21/13 [facility] ENTEROCOLITIS 01/2019 REVIEW OF SYSTEMS CONSTITUTIONAL: ANY RECENT FEVER NO . CHILLS NO . WEIGHT CHANGE OF UNKNOWN REASONS NO . GASTROENTEROLOGY: NEW UNEXPLAINABLE CHANGES IN BOWEL CONTROL NO . CONSTIPATION NO . GENITOURINARY: ANY NEW CHANGE IN BLADDER CONTROL? NO . NEUROLOGY: NEW ONSET DIZZINESS OR NEUROLOGICAL CHANGES NOT MENTIONED NO . NEW NUMBNESS OR PAIN PATTERNS NOT MENTIONED AND PERTINENT TO TODAY'S VISIT NO . CARDIOLOGY: NEW CHEST PRESSURE NO . NEW CHEST PAIN NO . RESPIRATORY: UNEXPLAINABLE COUGH NO . NEW SHORTNESS OF BREATH NO . VITAL SIGNS WT 288.4 LBS, HT 71 IN, BMI 40.22 INDEX, BP 168/81 MM HG, HR 72 /MIN, RR 18 /MIN, TEMP 97.7 F, OXYGEN SAT % 97%, SAFE IN ENV? (Y/N) Y, NA INITIALS MA 11:01, REVIEWED BY: EM. EXAMINATION GENERAL EXAMINATION: GENERALNO ACUTE DISTRESS, WELL NOURISHED AND HYDRATED. PSYCHAPPROPRIATE MOOD AND AFFECT . LUNGS:CLEAR TO AUSCULTATION BILATERALLY, NO WHEEZES, RHONCHI, RALES. HEART:NO MURMURS, REGULAR RATE AND RHYTHM. ASSESSMENTS HIP PAIN, RIGHT - M25.551 (PRIMARY) TREATMENT HIP PAIN, RIGHT LAB: PAIN CENTER URINE TOX (SEND OUT) NOTES: 51-YEAR-OLD MALE IN FOR CHRONIC PAIN FOLLOW-UP. GIVEN PRESENTING SYMPTOMS RECOMMEND CONTINUATION OF CURRENT MEDICATION REGIMEN WITH FOLLOW-UP IN 3 MONTHS. PATIENT HAS EXPRESSED UNDERSTANDING OF AND WAS IN AGREEMENT WITH TREATMENT PLAN. GIVEN TIME TO ASK QUESTIONS AND EXPRESS CONCERNS. , ISTOP REGISTRY REVIEWED AND DEMONSTRATES COMPLLIANCE. (REF # [id number] ) BRINGS IN MEDICATIONS WHICH IS APPROPRIATE FOR WHAT WAS DISPENSED. RECENT URINE TOXICOLOGY REVIEWED. NO UNAUTHORIZED MEDICATIONS. NO ILLICIT SUBSTANCES AND PRESCRIBED MEDICATIONS WERE PRESENT. PROCEDURE CODES FA211 ESTABILISHED PATIENT [facility] CHARGE DISPOSITION & COMMUNICATION FOLLOW UP 3 MONTHS (REASON: HIP PAIN) ELECTRONICALLY SIGNED BY ANA DUONG ON 06/22/2020 AT 01:48 PM EST DISCLAIMER : THIS IS A VISIT SUMMARY EXTRACTED FROM THE [employer] CHART. IT IS NOT A COPY OF THE [employer] PROGRESS NOTE. MTDD
== END ==
LOC: M PAIN 11:00
PROVIDERS: ATTEND Family Medicine
DX: M25.551 Pain in right hip (principal); G89.29 Other chronic pain; E11.42 Type 2 diabetes mellitus with diabetic polyneuropathy; Z86.14 Personal history of Methicillin resistant Staphylococcus aureus infection; Z96.89 Presence of other specified functional implants; Z88.5 Allergy status to narcotic agent; Z88.8 Allergy status to other drugs, medicaments and biological substances; E66.01 Morbid (severe) obesity due to excess calories; Z68.41 Body mass index [BMI] 40.0-44.9, adult; Z79.4 Long term (current) use of insulin; Z79.891 Long term (current) use of opiate analgesic; Z79.899 Other long term (current) drug therapy

== ENCOUNTER → 2020-10-23 | Outpatient (CLI) | payer BC ==
[~2020-10-23] MED LIST changes: +GABA-282 PO; -GABA-843 PO
--- NOTE | 2020-10-27 02:05 | ECWPNPC ---
PATIENT NAME: KHANH GEORGE : 1960 GENDER: MALE VISIT DATE: 10/23/2020 DISCHARGE DATE: 10/23/20 1058 VISIT LOCKED DATE TIME: PHYSICIAN: CHAPIS TOSCANO PHYSICIAN PAGER NO: ACTIVE RESOURCE: CHAPIS TOSCANO REASON FOR APPOINTMENT 1. 3 MONTH HIP PAIN HISTORY OF PRESENT ILLNESS DEPRESSION SCREENING: PHQ-2 (2015 EDITION) LITTLE INTEREST OR PLEASURE IN DOING THINGS?NOT AT ALL FEELING DOWN, DEPRESSED, OR HOPELESS?NOT AT ALL TOTAL SCORE0 60-YEAR-OLD MALE IN FOR CHRONIC PAIN FOLLOW-UP. HE RATES HIS PAIN CURRENTLY AT A 7 OUT OF 10 AND DESCRIBES IT SHOOTING. HE FEELS MEDICATIONS ARE HELPFUL AND DENIES MED SIDE EFFECTS AT THIS TIME. GENERAL: -. FALL RISK SCREENING: SCREENING ONCE A WEEK FALL DID NOT GO THE ER. PAIN SCREENING: PATIENT HAS A COMPLAINT OF ACUTE OR CHRONIC PAIN :YES LOCATION OF PAIN:RIGHT HIP RIGHT KNEE INTENSITY OF PAIN (SCALE OF 1 TO 10):7 WHAT DOES YOUR PAIN FEEL LIKE:SHOOTING DURATION:CONTINOUS, CONSTANT, ALL DAY PAIN IS INCREASED BY:ACTIVITIES PAIN IS DECREASED BY:USE OF PAIN MEDICATIONS, SITTING NURSING NOTE: -. PAIN CENTER INTAKE QUESTIONS: DO YOU HAVE A HISTORY OF MRSA? :NO DO YOU TAKE A BLOOD THINNERS? :NO DO YOU HAVE ANY BLEEDING DISORDERS? :NO ANY NEW NUMBNESS OR WEAKNESS IN YOUR LEGS OR ARMS? :NO ANY PACEMAKER,DEFIBRILLATOR, OR DORSAL COLUMN STIMULATOR? :YES DCS DO YOU HAVE ANY RASHES OR OPEN SORES? :NO ARE YOU ALLERGIC TO IV DYE? :NO ARE YOU DIABETIC? :YES ANY NEW PROBLEMS WITH YOUR MEDICATIONS? :NO HAVE YOU RECEIVED A VACCINE IN THE PAST 30 DAYS? :NO DO YOU PLAN TO RECEIVE A VACCINE IN THE NEXT 21 DAYS? :NO DO YOU NEED ANY PRESCRIPTION? :YES LIDOCAINE PATCHS DO YOU TAKE ANY IMMUNOSUPPRESSIVE MEDICATIONS? :NO DO YOU HAVE ANY KIDNEY OR LIVER DISEASE? :NO IS THERE A CHANCE YOU COULD BE ? :NO ARE YOU BREAST FEEDING? :NO CURRENT MEDICATIONS TAKING LUMIGAN 0.01 % SOLUTION INSTILL 1 DROP IN EACH EYE AT NIGHT TIME OPHTHALMIC TAKING ONETOUCH ULTRA 2 W/DEVICE KIT 1 E11.42 TAKING JANUVIA 100 MG TABLET 1 TABLET ORALLY ONCE A DAY NEEDED TAKING DICLOFENAC SODIUM 1 % GEL 1 APPLICATION TO AFFECTED AREA (KNEES,HIP) TRANSDERMAL THREE TIMES DAILY NEEDED TAKING MUCINEX NASAL SPRAY FULL FORCE 1 SPRAY EACH NOSTRIL INTER NASAL TWICE DAILY NEEDED TAKING MULTI COMPLETE - CAPSULE DIRECTED ORALLY DAILY TAKING VITAMIN B COMPLEX - TABLET DIRECTED ORALLY DAILY TAKING TIZANIDINE HCL 4 MG TABLET 1 TABLET NEEDED ORALLY THREE TIMES A DAY TAKING LIDOCAINE 5 % OINTMENT 1 APPLICATION TO AFFECTED AREA NEEDED EXTERNALLY APPLY Q 4-6 HRS PRN PAIN APPLY TO PAINFUL AREA OF FEET/KNEE TAKING LANTUS SOLO STAR PEN NEEDLES 4MM NEEDLES 32 G 1 SUBCUTANEOUS BID 11.42 TAKING LANTUS SOLOSTAR 100 UNIT/ML SOLUTION PEN-INJECTOR INJECT 77 UNITS AT BEDTIME DIRECTED TAKING TEST STRIPS - DIRECTED FOR GLUCOMETER QID TAKING PERCOCET 10-325 MG TABLET 1 TABLETS ORALLY EVERY 4 HRS PRN PAIN MDD=6 TAKING LIDOCAINE 5 % PATCH DIRECTED EXTERNALLY APPLY 2 PATCHES TO HIP OR BACK ON 12 HOURS OFF 12 HOURS MDD2 NOT-TAKING OZEMPIC (0.25 OR 0.5 MG/DOSE) 2 MG/1.5ML SOLUTION PEN-INJECTOR 0.25MGX4 WEEKS THEN 0.5MG SUBCUTANEOUS WEEKLY NOT-TAKING PROBIOTIC MATURE ADULT - CAPSULE 1 CAPSULE ORALLY WITH MEALS NOT-TAKING CARISOPRODOL 350 MG TABLET 1 TABLET NEEDED ORALLY FOR SPASMS AND PAIN EVERY 6 HOURS NEEDED MDD3, NOTES: NOT LATELY NOT-TAKING PIOGLITAZONE HCL 15 MG TABLET 1 TABLET ORALLY ONCE A DAY NOT-TAKING ONDANSETRON HCL 4 MG TABLET 1-2 TABLETS ORALLY EVERY 8 HOURS NEEDED NOT-TAKING POTASSIUM CHLORIDE ER 20 MEQ TABLET EXTENDED RELEASE 1 TABLET WITH FOOD ORALLY ONCE A DAY MEDICATION LIST REVIEWED AND RECONCILED WITH THE PATIENT PAST MEDICAL HISTORY DIABETES MELLITUS KIDNEY STONES GLAUCOMA PNEUMONIA SHOT GIVEN 05-03-2011 WHILE INPATIENT @ [facility] 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 NEED FOR PROPHYLACTIC VACCINATION AND INOCULATION, INFLUENZA ERECTILE DYSFUNCTION / IMPOTENCE KIDNEY STONE GROSS HEMATURIA 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 ATYPICAL CHEST PAIN ABDOMINAL PAIN DIABETIC TOE ULCER OSTEOARTHRITIS OF HIP OSTEOARTHRITIS OF RIGHT HIP MRSA COLONIZATION FURUNCULOSIS DRY MOUTH SIDE EFFECT WITH INVOKANA CHILDHOOD POLIO AGE APPROX 19 MOS ARTHRITIS IN HANDS AGENT ORANGE EXPOSURE 1982 RIGHT LEG PAIN ALLERGIES MORPHINE SULFATE: NAUSEA/VOMITING - SIDE EFFECTS METFORMIN: HICCUPS - SIDE EFFECTS GABAPENTIN: HALLUCINATIONS - SIDE EFFECTS SEASONAL: SNEZZING - ALLERGY SOCIAL HISTORY GENERAL: TOBACCO USE ARE YOU A:NONSMOKER 06/21/2019 ADDITIONAL FINDINGS: TOBACCO USER NEVER A SMOKER ADDITIONAL FINDINGS: TOBACCO NON-USER NO VAPORNO E-CIGARETTENO LATEX QUESTIONNAIRE LATEX ALLERGY : HAVE YOU EVER DEVELOPED ANY TYPE OF REACTION AFTER HANDLING LATEX PRODUCTS SUCH RUBBER GLOVES, CONDOMS, DIAPHRAGMS, BALLOONS, SOCKS, OR UNDERWEAR?NO LATEX ALLERGY : HAVE YOU EVER DEVELOPED ANY TYPE OF REACTION DURING OR AFTER DENTAL APPOINTMENT, VAGINAL/RECTAL EXAMINATION, SURGICAL PROCEDURE, OR ANY OTHER EXPOSURE?NO LATEX RISK : HAVE YOU EVER HAD ANY DIFFICULTY BREATHING OR HIVES AFTER EATING OR HANDLING ANY FRUITS, OR VEGETABLES; SUCH KIWI, BANANAS, STONE FRUITS, OR CHESTNUTSNO LATEX RISK : DO YOU HAVE A PREVIOUS PERSONAL HISTORY OF MORE THAN NINE SURGERIES, SPINA BIFIDA, OR REPEATED CATHERIZATIONS? NO LATEX RISK : ARE YOU FREQUENTLY EXPOSED TO LATEX PRODUCTS IN YOUR OCCUPATION?NO DATE ASKED : 10/23/2020 ALCOHOL USE: YES EVER NOW AND THEN WHEN HE GO TO A FRIENDS HOUSE. LUNG CANCER SCREENING SMOKING STATUS:NON SMOKER BMI CARE GOAL FOLLOW-UP ABOVE NORMAL BMI FOLLOW-UPDIETARY MANAGEMENT EDUCATION, GUIDANCE, AND COUNSELING ALCOHOL SCREENING DID YOU HAVE A DRINK CONTAINING ALCOHOL IN THE PAST YEAR?YES HOW OFTEN DID YOU HAVE SIX OR MORE DRINKS ON ONE OCCASION IN THE PAST YEAR?NEVER (0 POINTS) HOW MANY DRINKS DID YOU HAVE ON A TYPICAL DAY WHEN YOU WERE DRINKING IN THE PAST YEAR?1 OR 2 (0 POINTS) HOW OFTEN DID YOU HAVE A DRINK CONTAINING ALCOHOL IN THE PAST YEAR?MONTHLY OR LESS (1 POINT) POINTS1 INTERPRETATIONNEGATIVE RECREATIONAL DRUG USE DRUG USE?NO CAFFEINE CAFFEINE USE?YES HOW OFTEN AND HOW MUCH? 1-2 CUPS COFFEE/DAY SEXUAL HX HAD SEX IN THE LAST 12 MONTHS (VAGINAL, ORAL, OR ANAL)?YES WITHWOMEN ONLY PREVENTION STRATEGIES DISCUSSED:OTHER USE PROTECTION?NO HAVE YOU EVER HAD AN STD?NO HIV / HEP-C SCREENING HIV TEST OFFERED TO PATIENT:YES DATE OFFERED:06/21/2019 TEST ACCEPTED:NO HEP-C TEST OFFERED TO PATIENT:YES DATE OFFERED:06/21/2019 REASON:PATIENT DECLINED TEST ACCEPTED:NO REASON:PATIENT DECLINED TESTED 2013 BROCHURE PROVIDED TO PATIENTNO DECLINES [facility] [id number] NONE LANGUAGE JAPANESE. 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 DIET: CARBOHYDRATE CONTROLLED. EXERCISE: WALKS. MARITAL STATUS: . OTHERS AT HOME: SPOUSE. TODAY'S VISITNOTES 11/01/2019 PATIENT DESCRIBES PAIN :HAVE IT ALL THE TIME, THROBBING, SORE FROM 0-10, WHAT LEVEL IS YOUR PAIN TODAY?8 PRECIPITATING FACTORS WEATHER, ACTIVITY ALLEVIATING FACTORS PERCOCET, HEAT - PFS REFERRAL NEEDED?NO CLERGY REFERRAL NEEDED?NO PUBLIC HEALTH REFERRAL NEEDED?NO WAS THE PROVIDER NOTIFIED OF ANY PERTINENT INFO? N/A HAS THE PATIENT BEEN EDUCATED REGARDING HIS/HER PLAN OF CARE?YES HAS THE PATIENT BEEN EDUCATED REGARDING PAIN, THE RISK FOR PAIN, THE IMPORTANCE OF EFFECTIVE PAIN MANAGEMENT, AND THE PAIN ASSESSMENT PROCESS?YES ADVANCE DIRECTIVE ADVANCE DIRECTIVE DISCUSSED WITH PATIENT:YES PATIENT STATES HE HAS HCP INFORMATION AT HOME, DECLINED ASSISTANCE WITH FILLING OUT PAPERWORK AT THIS TIME. REVIEW OF SYSTEMS CONSTITUTIONAL: ANY RECENT FEVER NO . CHILLS NO . WEIGHT CHANGE OF UNKNOWN REASONS NO . GASTROENTEROLOGY: NEW UNEXPLAINABLE CHANGES IN BOWEL CONTROL NO . CONSTIPATION NO . GENITOURINARY: ANY NEW CHANGE IN BLADDER CONTROL? NO . NEUROLOGY: NEW ONSET DIZZINESS OR NEUROLOGICAL CHANGES NOT MENTIONED NO . NEW NUMBNESS OR PAIN PATTERNS NOT MENTIONED AND PERTINENT TO TODAY'S VISIT NO . CARDIOLOGY: NEW CHEST PRESSURE NO . PATIENT DENIES NO . RESPIRATORY: UNEXPLAINABLE COUGH NO . NEW SHORTNESS OF BREATH NO . VITAL SIGNS WT 289 LBS, HT 71 IN, BMI 40.30 INDEX, BP 148/78 MM HG, HR 93 /MIN, RR 18 /MIN, TEMP 97.7 F, OXYGEN SAT % 97%, SAFE IN ENV? (Y/N) YEST.MARIA ELENA BLAIR. EXAMINATION GENERAL EXAMINATION: GENERALNO ACUTE DISTRESS, WELL NOURISHED AND HYDRATED. PSYCHAPPROPRIATE MOOD AND AFFECT . LUNGS:CLEAR TO AUSCULTATION BILATERALLY, NO WHEEZES, RHONCHI, RALES. HEART:NO MURMURS, REGULAR RATE AND RHYTHM. ASSESSMENTS RIGHT HIP PAIN - M25.551 (PRIMARY), RISK: (NULL) TREATMENT RIGHT HIP PAIN NOTES: 60-YEAR-OLD MALE IN FOR CHRONIC PAIN FOLLOW-UP. GIVEN PRESENTING SYMPTOMS RECOMMENDED CONTINUATION OF CURRENT MEDICATION REGIMEN WITH FOLLOW-UP IN 3 MONTHS. PATIENT HAS EXPRESSED UNDERSTANDING OF AND WAS IN AGREEMENT WITH TREATMENT PLAN. GIVEN TIME TO ASK QUESTIONS AND EXPRESS CONCERNS. , ISTOP REGISTRY REVIEWED AND DEMONSTRATES COMPLLIANCE. (REF # [id number] ) BRINGS IN MEDICATIONS WHICH IS APPROPRIATE FOR WHAT WAS DISPENSED. RECENT URINE TOXICOLOGY REVIEWED. NO UNAUTHORIZED MEDICATIONS. NO ILLICIT SUBSTANCES AND PRESCRIBED MEDICATIONS WERE PRESENT. OTHERS CONTINUE LIDOCAINE OINTMENT, 5 %, 1 APPLICATION TO AFFECTED AREA NEEDED, EXTERNALLY, APPLY Q 4-6 HRS PRN PAIN APPLY TO PAINFUL AREA OF FEET/KNEE, 30 DAYS, 106.32, REFILLS 2 CONTINUE LIDOCAINE PATCH, 5 %, DIRECTED, EXTERNALLY, APPLY 2 PATCHES TO HIP OR BACK ON 12 HOURS OFF 12 HOURS MDD2, 30 DAYS, 60, REFILLS 2 PROCEDURE CODES FA211 ESTABILISHED PATIENT [facility] CHARGE DISPOSITION & COMMUNICATION FOLLOW UP 3 MONTHS (REASON: HIP PAIN ) ELECTRONICALLY SIGNED BY ANA DUONG ON 10/26/2020 AT 09:46 AM EDT DISCLAIMER : THIS IS A VISIT SUMMARY EXTRACTED FROM THE [employer] CHART. IT IS NOT A COPY OF THE [employer] PROGRESS NOTE. EVAN
== END ==
LOC: M PAIN 10:45
PROVIDERS: ATTEND Family Medicine
DX: M25.551 Pain in right hip (principal); E11.42 Type 2 diabetes mellitus with diabetic polyneuropathy; H40.9 Unspecified glaucoma; N52.9 Male erectile dysfunction, unspecified; M16.11 Unilateral primary osteoarthritis, right hip; J30.2 Other seasonal allergic rhinitis; Z79.891 Long term (current) use of opiate analgesic; Z79.4 Long term (current) use of insulin; Z79.899 Other long term (current) drug therapy; Z88.5 Allergy status to narcotic agent; Z88.8 Allergy status to other drugs, medicaments and biological substances

== ENCOUNTER → 2021-01-22 | Outpatient (CLI) | payer BC ==
--- NOTE | 2021-01-26 05:46 | ECWPNPC ---
PATIENT NAME: KHANH GEORGE : 1960 GENDER: MALE VISIT DATE: 01/22/2021 DISCHARGE DATE: 01/22/21 1057 VISIT LOCKED DATE TIME: PHYSICIAN: CHAPIS TOSCANO PHYSICIAN PAGER NO: ACTIVE RESOURCE: CHAPIS TOSCANO REASON FOR APPOINTMENT 1. 3 MONTH HIP PAIN HISTORY OF PRESENT ILLNESS GENERAL: HPI 60-YEAR-OLD MALE IN FOR CHRONIC PAIN FOLLOW-UP. HE RATES HIS PAIN CURRENTLY AN 8 OUT OF 10 AND DESCRIBES IT ACHING, BURNING, AND CONTINUOUS. PATIENT DOES ADMIT TO TAKING TRAMADOL THAT HE FOUND THAT HE WAS PREVIOUSLY PRESCRIBED HE EXPERIENCED AN EXACERBATION OF HIS PAIN.. -. FALL RISK SCREENING: SCREENING MULTIPLE FALLS REPORTED IN THE LAST YEAR WITHOUT INJURY.. PAIN SCREENING: PATIENT HAS A COMPLAINT OF ACUTE OR CHRONIC PAIN :YES LOCATION OF PAIN:RIGHT HIP INTENSITY OF PAIN (SCALE OF 1 TO 10):8 WHAT DOES YOUR PAIN FEEL LIKE:ACHING, BURNING, CONTINOUS, SHARP, STABBING, TENDER, THROBBING, SORE, SHOOTING DURATION:CONTINOUS, CONSTANT, AWAKENS FROM SLEEP PAIN IS INCREASED BY:ACTIVITIES, PROLONGED STANDING PAIN IS DECREASED BY:USE OF PAIN MEDICATIONS HOT BATHS NURSING NOTE: -. PAIN CENTER INTAKE QUESTIONS: DO YOU HAVE A HISTORY OF MRSA? :NO DO YOU TAKE A BLOOD THINNERS? :NO DO YOU HAVE ANY BLEEDING DISORDERS? :NO ANY NEW NUMBNESS OR WEAKNESS IN YOUR LEGS OR ARMS? :NO ANY PACEMAKER,DEFIBRILLATOR, OR DORSAL COLUMN STIMULATOR? :YES DCS DO YOU HAVE ANY RASHES OR OPEN SORES? :NO ARE YOU ALLERGIC TO IV DYE? :NO ARE YOU DIABETIC? :YES ANY NEW PROBLEMS WITH YOUR MEDICATIONS? :NO HAVE YOU RECEIVED A VACCINE IN THE PAST 30 DAYS? :NO DO YOU PLAN TO RECEIVE A VACCINE IN THE NEXT 21 DAYS? :YES IF SO WHAT VACCINE AND WHEN? MAY CONSIDER THE COVID VACCINAION DO YOU NEED ANY PRESCRIPTION? :YES LIDOCAINE PATCHS DO YOU TAKE ANY IMMUNOSUPPRESSIVE MEDICATIONS? :NO DO YOU HAVE ANY KIDNEY OR LIVER DISEASE? :NO IS THERE A CHANCE YOU COULD BE ? :NO ARE YOU BREAST FEEDING? :NO CURRENT MEDICATIONS TAKING LUMIGAN 0.01 % SOLUTION INSTILL 1 DROP IN EACH EYE AT NIGHT TIME OPHTHALMIC TAKING ONETOUCH ULTRA 2 W/DEVICE KIT 1 E11.42 TAKING DICLOFENAC SODIUM 1 % GEL 1 APPLICATION TO AFFECTED AREA (KNEES,HIP) TRANSDERMAL THREE TIMES DAILY NEEDED TAKING MUCINEX NASAL SPRAY FULL FORCE 1 SPRAY EACH NOSTRIL INTER NASAL TWICE DAILY NEEDED TAKING MULTI COMPLETE - CAPSULE DIRECTED ORALLY DAILY TAKING VITAMIN B COMPLEX - TABLET DIRECTED ORALLY DAILY TAKING LANTUS SOLO STAR PEN NEEDLES 4MM NEEDLES 32 G 1 SUBCUTANEOUS BID 11.42 TAKING TEST STRIPS - DIRECTED FOR GLUCOMETER QID TAKING LIDOCAINE 5 % OINTMENT 1 APPLICATION TO AFFECTED AREA NEEDED EXTERNALLY APPLY Q 4-6 HRS PRN PAIN APPLY TO PAINFUL AREA OF FEET/KNEE TAKING LIDOCAINE 5 % PATCH DIRECTED EXTERNALLY APPLY 2 PATCHES TO HIP OR BACK ON 12 HOURS OFF 12 HOURS MDD2 TAKING PERCOCET 10-325 MG TABLET 1 TABLETS ORALLY EVERY 4 HRS PRN PAIN MDD=6 TAKING LANTUS SOLOSTAR 100 UNIT/ML SOLUTION PEN-INJECTOR INJECT 77 UNITS AT BEDTIME DIRECTED NOT-TAKING JANUVIA 100 MG TABLET 1 TABLET ORALLY ONCE A DAY NEEDED NOT-TAKING TIZANIDINE HCL 4 MG TABLET 1 TABLET NEEDED ORALLY THREE TIMES A DAY NOT-TAKING OZEMPIC (0.25 OR 0.5 MG/DOSE) 2 MG/1.5ML SOLUTION PEN-INJECTOR 0.25MGX4 WEEKS THEN 0.5MG SUBCUTANEOUS WEEKLY NOT-TAKING PROBIOTIC MATURE ADULT - CAPSULE 1 CAPSULE ORALLY WITH MEALS NOT-TAKING CARISOPRODOL 350 MG TABLET 1 TABLET NEEDED ORALLY FOR SPASMS AND PAIN EVERY 6 HOURS NEEDED MDD3, NOTES: NOT LATELY NOT-TAKING PIOGLITAZONE HCL 15 MG TABLET 1 TABLET ORALLY ONCE A DAY NOT-TAKING ONDANSETRON HCL 4 MG TABLET 1-2 TABLETS ORALLY EVERY 8 HOURS NEEDED NOT-TAKING POTASSIUM CHLORIDE ER 20 MEQ TABLET EXTENDED RELEASE 1 TABLET WITH FOOD ORALLY ONCE A DAY MEDICATION LIST REVIEWED AND RECONCILED WITH THE PATIENT PAST MEDICAL HISTORY DIABETES MELLITUS KIDNEY STONES GLAUCOMA PNEUMONIA SHOT GIVEN 05-03-2011 WHILE INPATIENT @ [facility] 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 NEED FOR PROPHYLACTIC VACCINATION AND INOCULATION, INFLUENZA ERECTILE DYSFUNCTION / IMPOTENCE KIDNEY STONE GROSS HEMATURIA 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 ATYPICAL CHEST PAIN ABDOMINAL PAIN DIABETIC TOE ULCER OSTEOARTHRITIS OF HIP OSTEOARTHRITIS OF RIGHT HIP MRSA COLONIZATION FURUNCULOSIS DRY MOUTH SIDE EFFECT WITH INVOKANA CHILDHOOD POLIO AGE APPROX 19 MOS ARTHRITIS IN HANDS AGENT ORANGE EXPOSURE 1982 RIGHT LEG PAIN ALLERGIES MORPHINE SULFATE: NAUSEA/VOMITING - SIDE EFFECTS METFORMIN: HICCUPS - SIDE EFFECTS GABAPENTIN: HALLUCINATIONS - SIDE EFFECTS SEASONAL: SNEZZING - ALLERGY SURGICAL HISTORY WRIST SURGERY-RIGHT RIGHT KNEE GALLBLADDER 04-22-2014 NEURO STIMULATOR TRAIL 12/2014 NEURO STIMULATOR PLACED 03/2015 FAMILY HISTORY FATHER: , DIAGNOSED WITH OTHER MALIGNANT NEOPLASM OF UNSPECIFIED SITE, DIABETES MOTHER: , DIABETES, UNSPECIFIED CEREBRAL ARTERY OCCLUSION WITH CEREBRAL INFARCTION 2 BROTHER(S) . 1 SON(S) , 1 DAUGHTER(S) . 2 SISTER , FATHER -BLACK LUNG AND KIDNEY CANCER, MOM- STROKE\NSISTER - COMPLICATIONS FROM DMSISTER - : CANCER. SISTER 2- CAR ACCIDENT. SOCIAL HISTORY GENERAL: TOBACCO USE ARE YOU A:NONSMOKER 06/21/2019 ADDITIONAL FINDINGS: TOBACCO USER NEVER A SMOKER ADDITIONAL FINDINGS: TOBACCO NON-USER NO VAPORNO E-CIGARETTENO LATEX QUESTIONNAIRE LATEX ALLERGY : HAVE YOU EVER DEVELOPED ANY TYPE OF REACTION AFTER HANDLING LATEX PRODUCTS SUCH RUBBER GLOVES, CONDOMS, DIAPHRAGMS, BALLOONS, SOCKS, OR UNDERWEAR?NO LATEX ALLERGY : HAVE YOU EVER DEVELOPED ANY TYPE OF REACTION DURING OR AFTER DENTAL APPOINTMENT, VAGINAL/RECTAL EXAMINATION, SURGICAL PROCEDURE, OR ANY OTHER EXPOSURE?NO LATEX RISK : HAVE YOU EVER HAD ANY DIFFICULTY BREATHING OR HIVES AFTER EATING OR HANDLING ANY FRUITS, OR VEGETABLES; SUCH KIWI, BANANAS, STONE FRUITS, OR CHESTNUTSNO LATEX RISK : DO YOU HAVE A PREVIOUS PERSONAL HISTORY OF MORE THAN NINE SURGERIES, SPINA BIFIDA, OR REPEATED CATHERIZATIONS? NO LATEX RISK : ARE YOU FREQUENTLY EXPOSED TO LATEX PRODUCTS IN YOUR OCCUPATION?NO DATE ASKED : 01/22/2021 ALCOHOL USE: OCCASIONAL. LUNG CANCER SCREENING SMOKING STATUS:NON SMOKER BMI CARE GOAL FOLLOW-UP ABOVE NORMAL BMI FOLLOW-UPDIETARY MANAGEMENT EDUCATION, GUIDANCE, AND COUNSELING ALCOHOL SCREENING DID YOU HAVE A DRINK CONTAINING ALCOHOL IN THE PAST YEAR?YES HOW OFTEN DID YOU HAVE SIX OR MORE DRINKS ON ONE OCCASION IN THE PAST YEAR?NEVER (0 POINTS) HOW MANY DRINKS DID YOU HAVE ON A TYPICAL DAY WHEN YOU WERE DRINKING IN THE PAST YEAR?1 OR 2 (0 POINTS) HOW OFTEN DID YOU HAVE A DRINK CONTAINING ALCOHOL IN THE PAST YEAR?MONTHLY OR LESS (1 POINT) POINTS1 INTERPRETATIONNEGATIVE RECREATIONAL DRUG USE DRUG USE?NO CAFFEINE CAFFEINE USE?YES HOW OFTEN AND HOW MUCH? 1-2 CUPS COFFEE/DAY SEXUAL HX HAD SEX IN THE LAST 12 MONTHS (VAGINAL, ORAL, OR ANAL)?YES WITHWOMEN ONLY PREVENTION STRATEGIES DISCUSSED:OTHER USE PROTECTION?NO HAVE YOU EVER HAD AN STD?NO HIV / HEP-C SCREENING HIV TEST OFFERED TO PATIENT:YES DATE OFFERED:06/21/2019 TEST ACCEPTED:NO HEP-C TEST OFFERED TO PATIENT:YES DATE OFFERED:06/21/2019 REASON:PATIENT DECLINED TEST ACCEPTED:NO REASON:PATIENT DECLINED TESTED 2013 BROCHURE PROVIDED TO PATIENTNO DECLINES UATSDIN [id number] NONE LANGUAGE TURKISH. 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 DIET: CARBOHYDRATE CONTROLLED. EXERCISE: WALKS. MARITAL STATUS: . OTHERS AT HOME: SPOUSE. TODAY'S VISITNOTES 11/01/2019 PATIENT DESCRIBES PAIN :HAVE IT ALL THE TIME, THROBBING, SORE FROM 0-10, WHAT LEVEL IS YOUR PAIN TODAY?8 PRECIPITATING FACTORS WEATHER, ACTIVITY ALLEVIATING FACTORS PERCOCET, HEAT - PFS REFERRAL NEEDED?NO CLERGY REFERRAL NEEDED?NO PUBLIC HEALTH REFERRAL NEEDED?NO WAS THE PROVIDER NOTIFIED OF ANY PERTINENT INFO? N/A HAS THE PATIENT BEEN EDUCATED REGARDING HIS/HER PLAN OF CARE?YES HAS THE PATIENT BEEN EDUCATED REGARDING PAIN, THE RISK FOR PAIN, THE IMPORTANCE OF EFFECTIVE PAIN MANAGEMENT, AND THE PAIN ASSESSMENT PROCESS?YES ADVANCE DIRECTIVE ADVANCE DIRECTIVE DISCUSSED WITH PATIENT:YES PATIENT STATES HE HAS HCP INFORMATION AT HOME, DECLINED ASSISTANCE WITH FILLING OUT PAPERWORK AT THIS TIME. REVIEW OF SYSTEMS CONSTITUTIONAL: ANY RECENT FEVER NO . CHILLS NO . WEIGHT CHANGE OF UNKNOWN REASONS NO . GASTROENTEROLOGY: NEW UNEXPLAINABLE CHANGES IN BOWEL CONTROL NO . CONSTIPATION NO . GENITOURINARY: ANY NEW CHANGE IN BLADDER CONTROL? NO . NEUROLOGY: NEW ONSET DIZZINESS OR NEUROLOGICAL CHANGES NOT MENTIONED NO . NEW NUMBNESS OR PAIN PATTERNS NOT MENTIONED AND PERTINENT TO TODAY'S VISIT NO . CARDIOLOGY: NEW CHEST PRESSURE NO . PATIENT DENIES NO . RESPIRATORY: UNEXPLAINABLE COUGH NO . NEW SHORTNESS OF BREATH NO . VITAL SIGNS WT 285.0 LBS, HT 71 IN, BMI 39.75 INDEX, BP 194/87 MM HG, HR 88 /MIN, RR 18 /MIN, TEMP 97.4 F, OXYGEN SAT % 96%, SAFE IN ENV? (Y/N) YES, NA INITIALS AW 1027, REVIEWED BY: PEYTON BATISTA MA. EXAMINATION GENERAL EXAMINATION: GENERALNO ACUTE DISTRESS, WELL NOURISHED AND HYDRATED. PSYCHAPPROPRIATE MOOD AND AFFECT . LUNGS:CLEAR TO AUSCULTATION BILATERALLY, NO WHEEZES, RHONCHI, RALES. HEART:NO MURMURS, REGULAR RATE AND RHYTHM. ASSESSMENTS CHRONIC PRESCRIPTION OPIATE USE - Z79.891 (PRIMARY) RIGHT HIP PAIN - M25.551 TREATMENT CHRONIC PRESCRIPTION OPIATE USE LAB: [facility] JUANITA ARREDONDO 01/22/2021 10:47:10 AM > LAST DOSE; OXYCODONE 01/22/2021 RIGHT HIP PAIN START BACLOFEN TABLET, 5 MG, 1 TABLET NEEDED, ORALLY, THREE TIMES A DAY, 30 DAY(S), 90 TABLET, REFILLS 2 NOTES: 60-YEAR-OLD MALE IN FOR CHRONIC PAIN FOLLOW-UP. DISCUSSED PATIENT TAKING PREVIOUSLY PRESCRIBED TRAMADOL AND HE WAS INFORMED THAT THIS IS A CLEAR VIOLATION OF HIS NARCOTIC AGREEMENT SUCH THIS DRIVER'S LICENSE EXAMINER WAS WITHIN RIGHTS TO TAPER HIM OFF HIS MEDICATIONS. WE WILL CONTINUE MEDICATIONS GOING FORWARD HOWEVER IF THIS HAPPENS AGAIN PATIENT WILL BE DISCHARGED FROM THE PRACTICE. GIVEN PRESENTING SYMPTOMS RECOMMEND STARTING BACLOFEN 5 MG 3 TIMES DAILY WITH FOLLOW-UP IN 2 MONTHS TO DETERMINE EFFICACY OF TREATMENT. PATIENT HAS EXPRESSED UNDERSTANDING OF AND WAS IN AGREEMENT WITH TREATMENT PLAN. GIVEN TIME TO ASK QUESTIONS AND EXPRESS CONCERNS. ISTOP REGISTRY REVIEWED AND DEMONSTRATES COMPLLIANCE. (REF #[id number] ) BRINGS IN MEDICATIONS WHICH IS APPROPRIATE FOR WHAT WAS DISPENSED. RECENT URINE TOXICOLOGY REVIEWED. NO UNAUTHORIZED MEDICATIONS. NO ILLICIT SUBSTANCES AND PRESCRIBED MEDICATIONS WERE PRESENT. OTHERS REFILL LIDOCAINE PATCH, 5 %, DIRECTED, EXTERNALLY, APPLY 2 PATCHES TO HIP OR BACK ON 12 HOURS OFF 12 HOURS MDD2, 30 DAYS, 60, REFILLS 2 PROCEDURE CODES FA211 ESTABILISHED PATIENT [facility] FAC[facility] CHARGE DISPOSITION & COMMUNICATION FOLLOW UP 2 MONTHS (REASON: NEW MED) ELECTRONICALLY SIGNED BY ANA DUONG ON 01/25/2021 AT 08:22 AM EDT DISCLAIMER : THIS IS A VISIT SUMMARY EXTRACTED FROM THE [employer] CHART. IT IS NOT A COPY OF THE [employer] PROGRESS NOTE. EUGENIED
== END ==
LOC: M PAIN 10:30
PROVIDERS: ATTEND Family Medicine
DX: G89.29 Other chronic pain (principal); M25.551 Pain in right hip; H40.9 Unspecified glaucoma; E11.42 Type 2 diabetes mellitus with diabetic polyneuropathy; J30.2 Other seasonal allergic rhinitis; N52.9 Male erectile dysfunction, unspecified; Z79.4 Long term (current) use of insulin; Z79.891 Long term (current) use of opiate analgesic; Z79.899 Other long term (current) drug therapy; Z88.5 Allergy status to narcotic agent; Z88.8 Allergy status to other drugs, medicaments and biological substances

== ENCOUNTER → 2021-02-05 | Outpatient (CLI) | payer BC ==
--- NOTE | 2021-02-10 00:57 | ECWPNPC ---
PATIENT NAME: KHANH GEORGE : 1960 GENDER: MALE VISIT DATE: 02/05/2021 DISCHARGE DATE: 02/05/21 1146 VISIT LOCKED DATE TIME: PHYSICIAN: LAURO LÓPEZ MD PHYSICIAN PAGER NO: ACTIVE RESOURCE: LAURO LÓPEZ MD REASON FOR APPOINTMENT 1. DISCUSS MEDICATIONS HISTORY OF PRESENT ILLNESS GENERAL: 60-YEAR-OLD MALE PATIENT WITH A HISTORY OF CHRONIC LOW BACK AND RIGHT LEG PAIN. THE PATIENT DESCRIBES THE PAIN ACHING AND CONTINUOUS WITH A PAIN SCORE RANGING FROM 3-7/10. HE HAS BEEN SUFFERING FROM THIS CONDITION FOR MANY YEARS. THE PATIENT IS HAVING MAINLY RIGHT HIP PAIN AND RIGHT KNEE PAIN. HE HAS BEEN INFORMED BY HIS [employer] SUPER ON THAT NONE OF THOSE STRUCTURES ARE CANDIDATE FOR SURGERY. FALL RISK SCREENING: SCREENING PATIENT STATES HE FELL YESTERDAY- STATES NO INJURIES . PAIN SCREENING: PATIENT HAS A COMPLAINT OF ACUTE OR CHRONIC PAIN :YES LOCATION OF PAIN:LEG(S), FEET RIGHT LEG AND BILATERAL FEET INTENSITY OF PAIN (SCALE OF 1 TO 10):3 WHAT DOES YOUR PAIN FEEL LIKE:ACHING, CONTINOUS DURATION:CONTINOUS PAIN IS INCREASED BY:PROLONGED STANDING PAIN IS DECREASED BY:OTHERS WARM BATH NURSING NOTE: -. PAIN CENTER INTAKE QUESTIONS: DO YOU HAVE A HISTORY OF MRSA? :YES DO YOU TAKE A BLOOD THINNERS? :NO DO YOU HAVE ANY BLEEDING DISORDERS? :NO ANY NEW NUMBNESS OR WEAKNESS IN YOUR LEGS OR ARMS? :NO ANY PACEMAKER,DEFIBRILLATOR, OR DORSAL COLUMN STIMULATOR? :YES DCS DO YOU HAVE ANY RASHES OR OPEN SORES? :NO ARE YOU ALLERGIC TO IV DYE? :NO ARE YOU DIABETIC? :YES ANY NEW PROBLEMS WITH YOUR MEDICATIONS? :NO HAVE YOU RECEIVED A VACCINE IN THE PAST 30 DAYS? :NO DO YOU PLAN TO RECEIVE A VACCINE IN THE NEXT 21 DAYS? :NO DO YOU NEED ANY PRESCRIPTION? :NO DO YOU TAKE ANY IMMUNOSUPPRESSIVE MEDICATIONS? :NO DO YOU HAVE ANY KIDNEY OR LIVER DISEASE? :NO IS THERE A CHANCE YOU COULD BE ? :NO ARE YOU BREAST FEEDING? :NO CURRENT MEDICATIONS TAKING LUMIGAN 0.01 % SOLUTION INSTILL 1 DROP IN EACH EYE AT NIGHT TIME OPHTHALMIC TAKING DICLOFENAC SODIUM 1 % GEL 1 APPLICATION TO AFFECTED AREA (KNEES,HIP) TRANSDERMAL THREE TIMES DAILY NEEDED TAKING MUCINEX NASAL SPRAY FULL FORCE 1 SPRAY EACH NOSTRIL INTER NASAL TWICE DAILY NEEDED TAKING MULTI COMPLETE - CAPSULE DIRECTED ORALLY DAILY TAKING VITAMIN B COMPLEX - TABLET DIRECTED ORALLY DAILY TAKING LIDOCAINE 5 % OINTMENT 1 APPLICATION TO AFFECTED AREA NEEDED EXTERNALLY APPLY Q 4-6 HRS PRN PAIN APPLY TO PAINFUL AREA OF FEET/KNEE TAKING PERCOCET 10-325 MG TABLET 1 TABLETS ORALLY EVERY 4 HRS PRN PAIN MDD=6 TAKING BACLOFEN 5 MG TABLET 1 TABLET NEEDED ORALLY THREE TIMES A DAY TAKING LIDOCAINE 5 % PATCH DIRECTED EXTERNALLY APPLY 2 PATCHES TO HIP OR BACK ON 12 HOURS OFF 12 HOURS MDD2 TAKING TIZANIDINE HCL 4 MG TABLET 1 TABLET NEEDED ORALLY THREE TIMES A DAY TAKING CARISOPRODOL 350 MG TABLET 1 TABLET NEEDED ORALLY FOR SPASMS AND PAIN EVERY 6 HOURS NEEDED MDD3, NOTES: NOT LATELY TAKING ONDANSETRON HCL 4 MG TABLET 1-2 TABLETS ORALLY EVERY 8 HOURS NEEDED TAKING POTASSIUM CHLORIDE ER 20 MEQ TABLET EXTENDED RELEASE 1 TABLET WITH FOOD ORALLY ONCE A DAY TAKING [employer] ULTRA 2 W/DEVICE KIT 1 E11.42 TAKING LANTUS SOLO STAR PEN NEEDLES 4MM NEEDLES 32 G 1 SUBCUTANEOUS 67 UNITS DAILY TAKING TEST STRIPS - DIRECTED FOR GLUCOMETER QID TAKING JANUVIA 100 MG TABLET 1 TABLET ORALLY ONCE A DAY TAKING LANTUS SOLOSTAR 100 UNIT/ML SOLUTION PEN-INJECTOR 67 UNITS DAILY NOT-TAKING PROBIOTIC MATURE ADULT - CAPSULE 1 CAPSULE ORALLY WITH MEALS MEDICATION LIST REVIEWED AND RECONCILED WITH THE PATIENT PAST MEDICAL HISTORY DIABETES MELLITUS KIDNEY STONES GLAUCOMA PNEUMONIA SHOT GIVEN 05-03-2011 WHILE INPATIENT @ [facility] 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 NEED FOR PROPHYLACTIC VACCINATION AND INOCULATION, INFLUENZA ERECTILE DYSFUNCTION / IMPOTENCE KIDNEY STONE GROSS HEMATURIA 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 ATYPICAL CHEST PAIN ABDOMINAL PAIN DIABETIC TOE ULCER OSTEOARTHRITIS OF HIP OSTEOARTHRITIS OF RIGHT HIP MRSA COLONIZATION FURUNCULOSIS DRY MOUTH SIDE EFFECT WITH INVOKANA CHILDHOOD POLIO AGE APPROX 19 MOS ARTHRITIS IN HANDS AGENT ORANGE EXPOSURE 1982 RIGHT LEG PAIN ALLERGIES MORPHINE SULFATE: NAUSEA/VOMITING - SIDE EFFECTS METFORMIN: HICCUPS - SIDE EFFECTS GABAPENTIN: HALLUCINATIONS - SIDE EFFECTS SEASONAL: SNEZZING - ALLERGY BACLOFEN: ANGER, NERVE SENSITIVITY, INSOMNIA - SIDE EFFECTS SOCIAL HISTORY GENERAL: TOBACCO USE ARE YOU A:NONSMOKER NEVER SMOKER MALES, AGE 65-75 WITH 5 PACK SMOKING HISTORY (100 CIGARETTES LIFETIME) UPDATED 01/27/2021 ADDITIONAL FINDINGS: TOBACCO NON-USER NO VAPORNO E-CIGARETTENO LATEX QUESTIONNAIRE LATEX ALLERGY : HAVE YOU EVER DEVELOPED ANY TYPE OF REACTION AFTER HANDLING LATEX PRODUCTS SUCH RUBBER GLOVES, CONDOMS, DIAPHRAGMS, BALLOONS, SOCKS, OR UNDERWEAR?NO LATEX ALLERGY : HAVE YOU EVER DEVELOPED ANY TYPE OF REACTION DURING OR AFTER DENTAL APPOINTMENT, VAGINAL/RECTAL EXAMINATION, SURGICAL PROCEDURE, OR ANY OTHER EXPOSURE?NO LATEX RISK : HAVE YOU EVER HAD ANY DIFFICULTY BREATHING OR HIVES AFTER EATING OR HANDLING ANY FRUITS, OR VEGETABLES; SUCH KIWI, BANANAS, STONE FRUITS, OR CHESTNUTSNO LATEX RISK : DO YOU HAVE A PREVIOUS PERSONAL HISTORY OF MORE THAN NINE SURGERIES, SPINA BIFIDA, OR REPEATED CATHERIZATIONS? NO LATEX RISK : ARE YOU FREQUENTLY EXPOSED TO LATEX PRODUCTS IN YOUR OCCUPATION?NO DATE ASKED : 02/05/2021 ALCOHOL USE: OCCASIONAL. LUNG CANCER SCREENING SMOKING STATUS:NON SMOKER BMI CARE GOAL FOLLOW-UP ABOVE NORMAL BMI FOLLOW-UPDIETARY MANAGEMENT EDUCATION, GUIDANCE, AND COUNSELING ALCOHOL SCREENING DID YOU HAVE A DRINK CONTAINING ALCOHOL IN THE PAST YEAR?YES HOW OFTEN DID YOU HAVE A DRINK CONTAINING ALCOHOL IN THE PAST YEAR?MONTHLY OR LESS (1 POINT) HOW MANY DRINKS DID YOU HAVE ON A TYPICAL DAY WHEN YOU WERE DRINKING IN THE PAST YEAR?1 OR 2 (0 POINTS) HOW OFTEN DID YOU HAVE SIX OR MORE DRINKS ON ONE OCCASION IN THE PAST YEAR?NEVER (0 POINTS) POINTS1 INTERPRETATIONNEGATIVE RECREATIONAL DRUG USE DRUG USE?NO CAFFEINE CAFFEINE USE?YES HOW OFTEN AND HOW MUCH? 1-2 CUPS COFFEE/DAY SEXUAL HX HAD SEX IN THE LAST 12 MONTHS (VAGINAL, ORAL, OR ANAL)?YES WITHWOMEN ONLY USE PROTECTION?NO PREVENTION STRATEGIES DISCUSSED:OTHER HAVE YOU EVER HAD AN STD?NO HIV / HEP-C SCREENING HIV TEST OFFERED TO PATIENT:YES DATE OFFERED:01/27/2021 TEST ACCEPTED:NO REASON:PATIENT DECLINED BROCHURE PROVIDED TO PATIENTNO DECLINES HEP-C TEST OFFERED TO PATIENT:YES DATE OFFERED:01/27/2021 TEST ACCEPTED:NO REASON:PATIENT DECLINED TESTED 2013 AMISH [id number] NONE LANGUAGE IVORIAN. 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 DIET: CARBOHYDRATE CONTROLLED. EXERCISE: WALKS. MARITAL STATUS: . OTHERS AT HOME: SPOUSE. TODAY'S VISITNOTES 11/01/2019 PATIENT DESCRIBES PAIN :HAVE IT ALL THE TIME, THROBBING, SORE FROM 0-10, WHAT LEVEL IS YOUR PAIN TODAY?8 PRECIPITATING FACTORS WEATHER, ACTIVITY ALLEVIATING FACTORS PERCOCET, HEAT - PFS REFERRAL NEEDED?NO CLERGY REFERRAL NEEDED?NO PUBLIC HEALTH REFERRAL NEEDED?NO WAS THE PROVIDER NOTIFIED OF ANY PERTINENT INFO? N/A HAS THE PATIENT BEEN EDUCATED REGARDING HIS/HER PLAN OF CARE?YES HAS THE PATIENT BEEN EDUCATED REGARDING PAIN, THE RISK FOR PAIN, THE IMPORTANCE OF EFFECTIVE PAIN MANAGEMENT, AND THE PAIN ASSESSMENT PROCESS?YES ADVANCE DIRECTIVE ADVANCE DIRECTIVE DISCUSSED WITH PATIENT:YES PATIENT STATES HE HAS HCP INFORMATION AT HOME, DECLINED ASSISTANCE WITH FILLING OUT PAPERWORK AT THIS TIME. REVIEW OF SYSTEMS CONSTITUTIONAL: ANY RECENT FEVER NO . CHILLS NO . WEIGHT CHANGE OF UNKNOWN REASONS NO . GASTROENTEROLOGY: NEW UNEXPLAINABLE CHANGES IN BOWEL CONTROL NO . CONSTIPATION NO . GENITOURINARY: ANY NEW CHANGE IN BLADDER CONTROL? NO . NEUROLOGY: NEW ONSET DIZZINESS OR NEUROLOGICAL CHANGES NOT MENTIONED NO . NEW NUMBNESS OR PAIN PATTERNS NOT MENTIONED AND PERTINENT TO TODAY'S VISIT NO . CARDIOLOGY: NEW CHEST PRESSURE NO . PATIENT DENIES NO . RESPIRATORY: UNEXPLAINABLE COUGH NO . NEW SHORTNESS OF BREATH NO . VITAL SIGNS WT 283.8 LBS, WT-KG 128.73 KG, HT 71 IN, BMI 39.58 INDEX, BP 176/90 MM HG, HR 88 /MIN, RR 18 /MIN, TEMP 98.1 F, OXYGEN SAT % 99%, SAFE IN ENV? (Y/N) YES, NA INITIALS AW 1023, REVIEWED BY: Neymar POOL RN. EXAMINATION GENERAL EXAMINATION: THE PATIENT IS ALERT, ORIENTED TIMES THREE AND COOPERATIVE. LUNGS ARE CLEAR TO AUSCULTATION. HEART SHOWS REGULAR RHYTHM, NO MURMURS AND NO GALLOPS. THERE IS TENDERNESS OVER THE RIGHT HIP WITH ROTATION AND EXTENSION OVER THE HIP. ALSO TENDERNESS OVER THE RIGHT KNEE WITH FLEXION AND EXTENSION ESPECIALLY IN THE MEDIAL ASPECT. I CHECKED HIM UNDER X-RAY AND INDEED THE PAIN IS COMING FROM HIS HIP. ASSESSMENTS HIP PAIN, RIGHT - M25.551 (PRIMARY) ARTHRITIS OF RIGHT HIP - M16.11 LUMBAR RADICULOPATHY - M54.16, STATUS POST SPINAL COLUMN STIMULATOR CHRONIC PRESCRIPTION OPIATE USE - Z79.891 RIGHT KNEE PAIN, UNSPECIFIED CHRONICITY - M25.561 TREATMENT HIP PAIN, RIGHT CONTINUE PERCOCET TABLET, 7.5-325 MG, 1 TABLETS, ORALLY, EVERY 4 HRS PRN PAIN MDD=6, 30 DAYS, 180, REFILLS 0 CT SCAN : HIP, [id number] [facility] FLUORO GUIDANCE (PAIN)[id number] CLINICAL NOTES: I DISCUSSED ALTERNATIVES WITH ARIEL. I REDUCED THE OXYCODONE TO 7.5 MG 3 TIMES A DAY. I CHECKED THE ISTOP REFERENCE NUMBER [id number]. URINE TOX DATED 01/22/2021 SHOWS CONCORDAT RESULTS. HE IS OPENED TO TRYING INJECTION THERAPY. I WILL ORDER A CT OF THE RIGHT HIP AND RIGHT KNEE. THE PATIENT CANNOT DO MRIS. I WILL SEE HIM IN A FOLLOW UP AFTER THOSE ARE DONE. I MAY CONSIDER A RIGHT HIP INJECTION AND RIGHT KNEE RADIOFREQUENCY. THE PATIENT REPORTS UNDERSTANDING AND AGREES WITH THE PLAN. , I, LITZY BINGHAM, DOCUMENTED THE ABOVE INFORMATION ACTING A SCRIBE FOR DR. LÓPEZ. I HAVE REVIEWED THE ABOVE DOCUMENT, WRITTEN BY LITZY BINGHAM, RAILROAD TRACK MECHANIC, AND I VERIFY THAT IT IS ACCURATE. RIGHT KNEE PAIN, UNSPECIFIED CHRONICITY CT SCAN : [id number] VISIT CODES PROCEDURE CODES FA211 ESTABILISHED PATIENT [facility] FACILITY CHARGE [id number] OFFICE/OUTPATIENT VISIT EST DISPOSITION & COMMUNICATION FOLLOW UP FOLLOW UP IN A MONTH (REASON: REVIEW CT) ELECTRONICALLY SIGNED BY LAURO LÓPEZ MD, MD ON 02/09/2021 AT 01:41 PM EDT DISCLAIMER : THIS IS A VISIT SUMMARY EXTRACTED FROM THE [employer] CHART. IT IS NOT A COPY OF THE [employer] PROGRESS NOTE. MTDD
== END ==
LOC: M PAIN 10:30
PROVIDERS: ATTEND Anesthesiology
DX: M25.551 Pain in right hip (principal); M16.11 Unilateral primary osteoarthritis, right hip; M54.16 Radiculopathy, lumbar region; G89.29 Other chronic pain; M25.561 Pain in right knee; E11.9 Type 2 diabetes mellitus without complications; Z86.14 Personal history of Methicillin resistant Staphylococcus aureus infection; Z96.89 Presence of other specified functional implants; Z88.5 Allergy status to narcotic agent; Z88.8 Allergy status to other drugs, medicaments and biological substances; Z79.4 Long term (current) use of insulin; Z79.891 Long term (current) use of opiate analgesic; Z79.899 Other long term (current) drug therapy

== ENCOUNTER → 2021-04-22 | Outpatient (CLI) | payer BC | LOC: M LABSMTC 10:22 | PROVIDERS: ATTEND Pediatrics | DX: Z20.822 Contact with and (suspected) exposure to COVID-19 (principal) | CPT/HCPCS: C9803; U0003 ==

== ENCOUNTER → 2021-07-08 | Outpatient (REF) | payer BC ==
[2021-07-08 15:55] LABS: ALBUMIN 3.7 GM/DL (3.2-5.2); ALT/SGPT 42 U/L (12-78); BILIRUBIN,TOTAL 0.5 MG/DL (0.2-1.0); BLOOD UREA NITROGEN 16 MG/DL (7-18); CALCIUM LEVEL 9.3 MG/DL (8.5-10.1); CARBON DIOXIDE LEVEL 30 MEQ/L (21-32); CHLORIDE LEVEL 98 MEQ/L (98-107); CREATININE FOR GFR 1.01 MG/DL (0.70-1.30); GLOMERULAR FILTRATION RATE > 60.0 (>56); GLUCOSE, FASTING 388 MG/DL (70-100); SODIUM LEVEL 134 MEQ/L (136-145); TOTAL PROTEIN 7.6 GM/DL (6.4-8.2)
[2021-07-08 16:23] LABS: HEMOGLOBIN A1c 11.1 %
== END ==
LOC: M SFHCCLAY 10:38
PROVIDERS: ATTEND Family Medicine
DX: E11.42 Type 2 diabetes mellitus with diabetic polyneuropathy (principal); M16.9 Osteoarthritis of hip, unspecified; I10 Essential (primary) hypertension

== ENCOUNTER → 2021-11-03 | Outpatient (CLI) | payer BC ==
[~2021-11-03] MED LIST changes: -RIFA300C3 PO; +RIFA300C8 PO
== END ==
LOC: M SOG 10:41
PROVIDERS: ATTEND Orthopaedic Surgery
DX: M25.512 Pain in left shoulder (principal)

== ENCOUNTER → 2021-11-10 | Outpatient (CLI) | payer BC | LOC: M SOG 08:22 | PROVIDERS: ATTEND Orthopaedic Surgery | DX: M25.761 Osteophyte, right knee (principal); M25.762 Osteophyte, left knee ==

== ENCOUNTER → 2021-12-03 | Outpatient (CLI) | payer BC ==
[~2021-12-03] MED LIST changes: +BUPIVACAINE HCL 0.25% 10ML VIAL As Ordered ONE; +ISOVUE-300 61% 50ML VIAL As Ordered ONE; +LIDOCAINE 1% MDV 20ML VIAL As Ordered ONE; +methylPREDNISolone 80MG/ML SUSP 1ML VIAL (J1040) As Ordered ONE
== END ==
LOC: M RADPRO 09:45
PROVIDERS: ATTEND Orthopaedic Surgery
DX: M25.551 Pain in right hip (principal)
CPT/HCPCS: 20610; 77002; J1040; Q9967

== ENCOUNTER → 2022-02-15 | Outpatient (CLI) | payer BC ==
[~2022-02-15] MED LIST changes: -BUPIVACAINE HCL 0.25% 10ML VIAL As Ordered ONE; -methylPREDNISolone 80MG/ML SUSP 1ML VIAL (J1040) As Ordered ONE
== END ==
LOC: M RADPRO 09:31
PROVIDERS: ATTEND Orthopaedic Surgery
DX: M67.814 Other specified disorders of tendon, left shoulder (principal); S43.52XA Sprain of left acromioclavicular joint, initial encounter; X58.XXXA Exposure to other specified factors, initial encounter; Y92.9 Unspecified place or not applicable
CPT/HCPCS: 23350; 73201; 77002; Q9967

== ENCOUNTER → 2022-04-08 | Outpatient (CLI) | payer BC ==
[~2022-04-08] MED LIST changes: +BUPIVACAINE HCL 0.5% 30ML VIAL As Ordered ONE; -LIDOCAINE 1% MDV 20ML VIAL As Ordered ONE; +methylPREDNISolone 80MG/ML SUSP 1ML VIAL (J1040) As Ordered ONE
== END ==
LOC: M RAD 14:29
PROVIDERS: ATTEND Orthopaedic Surgery
DX: M16.11 Unilateral primary osteoarthritis, right hip (principal)
CPT/HCPCS: 76000; J1040; Q9967

== ENCOUNTER → 2022-05-17 | Outpatient (REF) | payer BC ==
[~2022-05-17] MED LIST changes: -BUPIVACAINE HCL 0.5% 30ML VIAL As Ordered ONE; -ISOVUE-300 61% 50ML VIAL As Ordered ONE; -methylPREDNISolone 80MG/ML SUSP 1ML VIAL (J1040) As Ordered ONE
== END ==
LOC: M SFHCCLAY 12:15
PROVIDERS: ATTEND Family Medicine
DX: Z79.891 Long term (current) use of opiate analgesic (principal); M15.9 Polyosteoarthritis, unspecified; E11.42 Type 2 diabetes mellitus with diabetic polyneuropathy; I10 Essential (primary) hypertension

== ENCOUNTER → 2022-11-24 | Outpatient (REF) | payer BC ==
[~2022-11-24] MED LIST changes: +POTA-298 PO; -POTA1TAB14 PO
[2022-11-24 17:27] LABS: HEMATOCRIT 46.7 % (42.0-52.0); HEMOGLOBIN 15.2 g/dl (13.5-17.5); MEAN CORPUSCULAR HEMOGLOBIN 28.3 pg (27.0-33.0); MEAN CORPUSCULAR HGB CONC 32.5 g/dl (32.0-36.5); MEAN CORPUSCULAR VOLUME 86.8 fl (80.0-96.0); PLATELET COUNT, AUTOMATED 162 10^3/uL (150-450); RED BLOOD COUNT 5.38 10^6/uL (4.30-6.10); WHITE BLOOD COUNT 7.4 10^3/uL (4.0-10.0)
[2022-11-24 17:30] LABS: HEMOGLOBIN A1c 9.9 % (4.0-6.0)
[2022-11-24 17:49] LABS: ALBUMIN 3.5 G/DL (3.2-5.2); ALKALINE PHOSPHATASE 103 U/L (46-116); ALT/SGPT 30 U/L (7.0-40); AST/SGOT 37 U/L (<34); BILIRUBIN,TOTAL 0.5 MG/DL (0.3-1.2); BLOOD UREA NITROGEN 18 MG/DL (9-23); CALCIUM LEVEL 9.4 MG/DL (8.3-10.6); CARBON DIOXIDE LEVEL 29 MMOL/L (20-31); CHLORIDE LEVEL 100 MMOL/L (98-107); CHOLESTEROL LEVEL 142 MG/DL (<200); CHOLESTEROL RISK RATIO 3.76 (<5); GLOMERULAR FILTRATION RATE > 60.0 (>49); GLUCOSE, FASTING 362 MG/DL (74-106); HDL CHOLESTEROL 37.7 MG/DL (>40); LDL CHOLESTEROL 56.7 MG/DL (<100); NON-HDL-C 104.3 MG/DL; SODIUM LEVEL 135 MMOL/L (136-145); TOTAL PROTEIN 6.6 G/DL (5.7-8.2); TRIGLYCERIDES LEVEL 238 MG/DL (<150)
== END ==
LOC: M SFHCCLAY 12:50
PROVIDERS: ATTEND Family Medicine
DX: I10 Essential (primary) hypertension (principal); E11.42 Type 2 diabetes mellitus with diabetic polyneuropathy; Z22.322 Carrier or suspected carrier of Methicillin resistant Staphylococcus aureus

== ENCOUNTER → 2022-12-22 | Outpatient (CLI) | payer BC | LOC: M SOG 10:23 | PROVIDERS: ATTEND Physician Assistant | DX: M25.512 Pain in left shoulder (principal); M25.511 Pain in right shoulder ==

== ENCOUNTER → 2023-01-04 | Outpatient (CLI) | payer BC | LOC: M PLAIMG 10:19 | PROVIDERS: ATTEND Orthopaedic Surgery Hand Surgery | DX: M25.511 Pain in right shoulder (principal); M25.711 Osteophyte, right shoulder ==

== ENCOUNTER 2023-02-22 06:01 | Observation (INO) | payer BC ==
[~2023-02-22] VITALS: Ht 188 cm; Wt 124.6 kg
[2023-02-22] VITALS (7 sets, daily range): BP systolic 123–142; BP diastolic 82–91; TEMP 96.8–97.3; O2SAT 93–95
[~2023-02-22 06:01] MED LIST changes: +DICL100G10 TOP; -DICL1GEL3 TOP; +ELDE350C PO; +IBUP200C29 PO; +OXYC1TAB23 PO; +PROBCAP14 PO; +VITMTA PO
[2023-02-22] MEDS ORDERED: LR 1,000 ML IV SCH (06:45)
[2023-02-22] MEDS ORDERED: ceFAZolin SOD 2 GM in IV 1 EA IV ONE (07:15)
[2023-02-22] MEDS ORDERED: propofoL 200 MG/20 ML VIAL As Ordered ONE (07:16)
[2023-02-22] MEDS ORDERED: MIDAZOLAM INJ 2MG/2ML VIAL As Ordered ONE (07:16)
[2023-02-22] MEDS ORDERED: fentaNYL 100 MCG/2 ML INJECTION As Ordered ONE (07:16)
[2023-02-22] MEDS ORDERED: ROCURONIUM BROMIDE 50MG/5ML VIAL As Ordered ONE ×2 (07:17→08:45)
[2023-02-22] MEDS ORDERED: ONDANSETRON 4MG 2ML VIAL As Ordered ONE (07:17)
[2023-02-22] MEDS ORDERED: LIDOCAINE 2% 100MG/5ML SDV (FOR ANES.) As Ordered ONE (07:17)
[2023-02-22] MEDS ORDERED: LIDOCAINE W/EPINEPHRINE 1% 20ML VIAL As Ordered ONE (07:18)
[2023-02-22] MEDS ORDERED: TRANEXAMIC ACID 100 MG/ML 10ML VIAL As Ordered ONE (07:18)
[2023-02-22] MEDS ORDERED: VANCOMYCIN 500MG/10ML VIAL As Ordered ONE (07:19)
[2023-02-22] MEDS ORDERED: dexAMETHasone 10MG/1ML VIAL PRES.FREE PN ONE (07:20)
[2023-02-22] MEDS ORDERED: ROPIvacaine 0.5% 30ML VIAL PN ONE (07:20)
[2023-02-22] MEDS ORDERED: fentaNYL 100 MCG/2 ML INJECTION IV PRN ×2 (07:20→10:35)
[2023-02-22] MEDS ORDERED: EPINEPHrine INJ 1 MG/ML 1ML AMP PN ONE (07:20)
[2023-02-22] MEDS ORDERED: LIDOCAINE 1% SDV 5ML VIAL PN ONE (07:20)
[2023-02-22] MEDS ORDERED: INSULIN LISPRO (NovoLOG) PER UNIT SC PRN ×3 (07:20→12:30)
[2023-02-22] MEDS: MIDAZOLAM INJ 2MG/2ML VIAL IV PRN ×2 (07:27→07:30)
[2023-02-22] MEDS ORDERED: METOCLOPRAMIDE INJ 10MG/2ML VIAL As Ordered ONE (07:45)
[2023-02-22] MEDS ORDERED: ceFAZolin SOD 1 GM in D5W MINI-BAG PLUS 50 ML IV ONE (07:55)
[2023-02-22] MEDS ORDERED: ACETAMINOPHEN 1000MG 100ML IV BAG As Ordered ONE (08:22)
[2023-02-22] MEDS ORDERED: ePHEDrine SULFATE 25 MG/5 ML(5MG/ML) SYRINGE As Ordered ONE (08:39)
[2023-02-22] MEDS ORDERED: PHENYLephrine 500MCG 5ML (100MCG/ML) SYRINGE As Ordered ONE (08:39)
[2023-02-22] MEDS ORDERED: SUGAMMADEX SODIUM 500 MG/5 ML VIAL (BRIDION) As Ordered ONE (08:47)
[2023-02-22] MEDS ORDERED: KETOROLAC 60MG 2ML VIAL As Ordered ONE (08:47)
[2023-02-22] MEDS ORDERED: PHENYLEPHRINE 10MG/ML 1ML VIAL As Ordered ONE (08:48)
[2023-02-22] MEDS ORDERED: MEPERIDINE 25 MG/ML 1ML VIAL IV PRN (10:35)
[2023-02-22] MEDS ORDERED: HYDROMORPHONE HCL 0.5 MG/ 0.5 ML SYRINGE IV PRN (10:35)
[2023-02-22] MEDS ORDERED: ONDANSETRON 4MG 2ML VIAL IV PRN (10:35)
[2023-02-22] MEDS ORDERED: oxyCODONE 5MG TAB PO PRN ×2 (10:35→10:55)
[2023-02-22] MEDS ORDERED: ACETAMINOPHEN TAB 650MG DOSE (2X325MG) PO PRN ×2 (10:55→12:15)
[2023-02-22 11:58] LABS: CREATININE FOR GFR 0.81 MG/DL (0.70-1.30); GLOMERULAR FILTRATION RATE > 60.0 (>49)
[2023-02-22] MEDS ORDERED: MOM 30ML SUSPENSION UDC PO PRN (12:15)
[2023-02-22] MEDS ORDERED: PERCOCET 5MG/325MG TAB PO PRN ×2 (12:15→20:20)
[2023-02-22] MEDS ORDERED: LIDOCAINE 5% OINT 30GM TUBE TOP PRN (12:15)
[2023-02-22] MEDS ORDERED: DEXTROSE 50% 50ML SYRINGE IV PRN (12:20)
[2023-02-22] MEDS ORDERED: GLUCOSE 4GM CHEW TABLET PO PRN (12:20)
[2023-02-22] MEDS ORDERED: GLUCAGON INJ 1MG VIAL SC PRN (12:20)
[2023-02-22] MEDS ORDERED: INSULIN LISPRO (NovoLOG) PER UNIT SC ONE ×3 (13:15→19:00)
[2023-02-22 13:25] LABS: HEMATOCRIT 43.5 % (42.0-52.0); HEMOGLOBIN 14.3 g/dl (13.5-17.5); MEAN CORPUSCULAR HEMOGLOBIN 28.2 pg (27.0-33.0); MEAN CORPUSCULAR HGB CONC 32.9 g/dl (32.0-36.5); MEAN CORPUSCULAR VOLUME 85.8 fl (80.0-96.0); PLATELET COUNT, AUTOMATED 175 10^3/uL (150-450); RED BLOOD COUNT 5.07 10^6/uL (4.30-6.10); WHITE BLOOD COUNT 10.2 10^3/uL (4.0-10.0)
[2023-02-22 13:30] LABS: BLOOD UREA NITROGEN 19 MG/DL (9-23); CALCIUM LEVEL 9.2 MG/DL (8.3-10.6); CARBON DIOXIDE LEVEL 24 MMOL/L (20-31); CHLORIDE LEVEL 101 MMOL/L (98-107); GLUCOSE, FASTING 327 MG/DL (74-106); POTASSIUM SERUM 4.6 MMOL/L (3.5-5.1); SODIUM LEVEL 135 MMOL/L (136-145)
[2023-02-22] MEDS ORDERED: INSU100I34 SQ ×2 (14:50)
[2023-02-22] MEDS ORDERED: ALLE180T33 PO (14:50)
[2023-02-22] MEDS ORDERED: HOME MED LIST COMPLETE! XX SCH (14:55)
[2023-02-22] MEDS: ceFAZolin SOD 1 GM in D5W MINI-BAG PLUS 50 ML IV SCH ×2 (14:56→23:36)
[2023-02-22] MEDS: INSULIN LISPRO (NovoLOG) PER UNIT SC SCH (17:26)
[2023-02-22] MEDS ORDERED: KETOROLAC 30 MG/ML 1ML VIAL IV ONE (20:20)
[2023-02-22] MEDS: DOCUSATE SODIUM 100MG CAPSULE PO SCH (20:26)
[2023-02-22] MEDS: PERCOCET 5MG/325MG TAB PO PRN (20:29)
[2023-02-22] MEDS ORDERED: LEVEMIR (INSULIN DETEMIR) 1 UNITS/0.01ML SC SCH ×3 (21:00)
[2023-02-22] MEDS ORDERED: INSULIN LISPRO (NovoLOG) PER UNIT SC SCH (21:00)
[2023-02-23] MEDS: PERCOCET 5MG/325MG TAB PO PRN ×4 (00:31→12:46)
[2023-02-23 02:04] VITALS: BP 151/87; TEMP 97.7; O2SAT 93
[2023-02-23] MEDS ORDERED: KETOROLAC 30 MG/ML 1ML VIAL IV ONE (04:00)
[2023-02-23 05:13] VITALS: BP 130/69; TEMP 97.7; O2SAT 90
[2023-02-23 06:27] LABS: HEMOGLOBIN 13.9 g/dl (13.5-17.5); MEAN CORPUSCULAR HEMOGLOBIN 28.3 pg (27.0-33.0); MEAN CORPUSCULAR HGB CONC 33.9 g/dl (32.0-36.5); MEAN CORPUSCULAR VOLUME 83.3 fl (80.0-96.0); PLATELET COUNT, AUTOMATED 171 10^3/uL (150-450); RED BLOOD COUNT 4.92 10^6/uL (4.30-6.10); WHITE BLOOD COUNT 15.7 10^3/uL (4.0-10.0)
[2023-02-23 06:52] LABS: BLOOD UREA NITROGEN 30 MG/DL (9-23); CALCIUM LEVEL 9.6 MG/DL (8.3-10.6); CARBON DIOXIDE LEVEL 26 MMOL/L (20-31); CHLORIDE LEVEL 102 MMOL/L (98-107); CREATININE FOR GFR 0.87 MG/DL (0.70-1.30); GLOMERULAR FILTRATION RATE > 60.0 (>49); GLUCOSE, FASTING 336 MG/DL (74-106); POTASSIUM SERUM 5.5 MMOL/L (3.5-5.1); SODIUM LEVEL 135 MMOL/L (136-145)
[2023-02-23] MEDS ORDERED: PATIROMER SORBITEX CALCIUM 8.4 GM POWDER PACKET (VELTASSA) PO ONE (07:30)
[2023-02-23] MEDS: INSULIN LISPRO (NovoLOG) PER UNIT SC SCH ×2 (07:30→12:20)
[2023-02-23] MEDS ORDERED: MULTIVITAMINS/MINERALS THERAP 1 TAB PO SCH (09:00)
[2023-02-23] MEDS ORDERED: ENOXAPARIN 40MG/0.4ML SYRINGE (J1650 PER 10MG) SC SCH (09:00)
[2023-02-23] MEDS ORDERED: LATANOPROST 0.005% OPHTH SOLN 2.5 ML OU SCH (09:00)
[2023-02-23] MEDS ORDERED: LEVEMIR (INSULIN DETEMIR) 1 UNITS/0.01ML SC SCH ×4 (09:00)
[2023-02-23] MEDS ORDERED: LACTOBACILLUS ACIDOPHILUS CAP (BACID) PO SCH (09:00)
[2023-02-23] MEDS ORDERED: LIDOCAINE 5% (LIDODERM) PATCH TD SCH (09:00)
[2023-02-23] MEDS: ceFAZolin SOD 1 GM in D5W MINI-BAG PLUS 50 ML IV SCH (09:05)
[2023-02-23] MEDS: DOCUSATE SODIUM 100MG CAPSULE PO SCH (09:07)
[2023-02-23 10:00] VITALS: BP 145/79; TEMP 97.5; O2SAT 93
[2023-02-23] MEDS ORDERED: INSU1MIS20 SC (11:05)
[2023-02-23] MEDS ORDERED: INSU100I34 SQ ×2 (11:05)
[2023-02-23] MEDS ORDERED: PEN1MIS21 SC (11:05)
[2023-02-23] MEDS ORDERED: INSUHUMDS SC (11:05)
[2023-02-23] MEDS ORDERED: INSULIN LISPRO (NovoLOG) PER UNIT SC ONE (12:00)
[2023-02-23 14:28] LABS: HEMOGLOBIN A1c 9.2 % (4.0-6.0)
== END 2023-02-23 13:45 | disposition home or self-care (01) ==
LOC: M SDC 06:01 → M MS5PR 12:12 → EEVIPCON 12:12
PROVIDERS: ADMIT Student in an Organized Health Care Education/Training Program; ATTEND Orthopaedic Surgery Hand Surgery
DX: M19.011 Primary osteoarthritis, right shoulder (principal); E11.9 Type 2 diabetes mellitus without complications; Z68.36 Body mass index [BMI] 36.0-36.9, adult; R06.83 Snoring; Z88.8 Allergy status to other drugs, medicaments and biological substances; Z88.5 Allergy status to narcotic agent; Z79.4 Long term (current) use of insulin
CPT/HCPCS: 23472; 36415; 64415; 73020; 80048; 83036; 85027; 88300; 93005; 96374; 96375; 96376; 97116; 97161; 97530; C1713; C1773; C1776; J0131; J0690; J1815; J1885; J2250; J2371; J2405; J2765; J3010

== ENCOUNTER → 2023-03-03 | Outpatient (CLI) | payer BC ==
[~2023-03-03] MED LIST changes: +ALLE180T33 PO; +INSU100I34 SQ; +INSU1MIS20 SC; +INSUHUMDS SC; +PEN1MIS21 SC
== END ==
LOC: M SOG 07:59
PROVIDERS: ATTEND Physician Assistant
DX: M25.811 Other specified joint disorders, right shoulder (principal); Z96.611 Presence of right artificial shoulder joint

== ENCOUNTER 2023-03-09 10:09 | Emergency (ER) | payer BC ==
[2023-03-09 14:32] LABS: BASO % 0.4 % (0.0-1.0); EOS # 0.1 10^3/uL (0.0-0.5); EOS % 1.7 % (0.0-3.0); HEMATOCRIT 40.6 % (42.0-52.0); HEMOGLOBIN 13.4 g/dl (13.5-17.5); LYMPH # 1.9 10^3/uL (1.5-5.0); LYMPH % 22.3 % (24.0-44.0); MEAN CORPUSCULAR HEMOGLOBIN 28.2 pg (27.0-33.0); MEAN CORPUSCULAR VOLUME 85.3 fl (80.0-96.0); MONO # 0.6 10^3/uL (0.0-0.8); MONO % 6.7 % (2.0-8.0); NEUTROPHILS # 5.7 10^3/uL (1.5-8.5); NEUTROPHILS % 68.5 % (36.0-66.0); PLATELET COUNT, AUTOMATED 225 10^3/uL (150-450); RED BLOOD COUNT 4.76 10^6/uL (4.30-6.10); WHITE BLOOD COUNT 8.3 10^3/uL (4.0-10.0)
[2023-03-09 14:48] LABS: CK-MB VALUE MASS 1.3 NG/ML (<3.6)
[2023-03-09 14:50] LABS: ALBUMIN 3.2 G/DL (3.2-5.2); ALKALINE PHOSPHATASE 142 U/L (46-116); ALT/SGPT 25 U/L (7.0-40); AST/SGOT 28 U/L (<34); BILIRUBIN,DIRECT 0.2 MG/DL (<0.4); BILIRUBIN,TOTAL 0.4 MG/DL (0.3-1.2); BLOOD UREA NITROGEN 11 MG/DL (9-23); CALCIUM LEVEL 9.4 MG/DL (8.3-10.6); CARBON DIOXIDE LEVEL 29 MMOL/L (20-31); CHLORIDE LEVEL 101 MMOL/L (98-107); CREATININE FOR GFR 0.74 MG/DL (0.70-1.30); GLOMERULAR FILTRATION RATE > 60.0 (>49); GLUCOSE, FASTING 190 MG/DL (74-106); SODIUM LEVEL 135 MMOL/L (136-145); TOTAL PROTEIN 6.8 G/DL (5.7-8.2)
[2023-03-09 15:00] LABS: CPK CREATINE PHOSPHOKINASE 49 U/L (46-171); MB/CK RELATIVE INDEX 2.65 (< OR =4)
[2023-03-09] MEDS ORDERED: FUROSEMIDE 20MG/2ML VIAL IV ONE (15:15)
[2023-03-09 15:40] LABS: CK-MB VALUE MASS < 1.0 NG/ML (<3.6)
[2023-03-09 15:41] LABS: CPK CREATINE PHOSPHOKINASE 40 U/L (46-171)
[2023-03-09 15:51] VITALS: BP 172/96; TEMP 97.7; O2SAT 98
== END 2023-03-09 15:52 | disposition home or self-care (01) ==
LOC: M ED 10:09
DX: K30 Functional dyspepsia (principal); R60.0 Localized edema; E11.9 Type 2 diabetes mellitus without complications; K44.9 Diaphragmatic hernia without obstruction or gangrene; I45.10 Unspecified right bundle-branch block; Z88.5 Allergy status to narcotic agent; Z88.8 Allergy status to other drugs, medicaments and biological substances; Z79.899 Other long term (current) drug therapy; Z79.810 Long term (current) use of selective estrogen receptor modulators (SERMs); Z79.4 Long term (current) use of insulin
CPT/HCPCS: 71045; 80048; 80076; 82550; 82553; 83880; 84484; 85025; 93005; 93971; 96374; 99284; J1940

== ENCOUNTER → 2023-09-06 | Outpatient (REF) | payer BC ==
[~2023-09-06] MED LIST changes: -INSU100I34 SQ; +INSU100I59 SQ; +PEN-308 SC; -PEN1MIS21 SC
[2023-09-07 13:52] LABS: ALBUMIN 3.4 G/DL (3.2-5.2); ALKALINE PHOSPHATASE 115 U/L (46-116); ALT/SGPT 26 U/L (7.0-40); AST/SGOT 30 U/L (<34); BILIRUBIN,TOTAL 0.4 MG/DL (0.3-1.2); BLOOD UREA NITROGEN 15 MG/DL (9-23); CALCIUM LEVEL 8.3 MG/DL (8.3-10.6); CARBON DIOXIDE LEVEL 31 MMOL/L (20-31); CHLORIDE LEVEL 105 MMOL/L (98-107); CREATININE FOR GFR 0.69 MG/DL (0.70-1.30); GLOMERULAR FILTRATION RATE > 60.0 (>49); GLUCOSE, FASTING 235 MG/DL (74-106); POTASSIUM SERUM 4.6 MMOL/L (3.5-5.1); SODIUM LEVEL 139 MMOL/L (136-145); TOTAL PROTEIN 6.9 G/DL (5.7-8.2)
[2023-09-07 14:06] LABS: HEMOGLOBIN A1c 10.3 % (4.0-6.0)
== END ==
LOC: M SFHCCLAY 15:49
PROVIDERS: ATTEND Family Medicine
DX: I10 Essential (primary) hypertension (principal)

== ENCOUNTER → 2024-11-14 | Outpatient (REF) | payer BC ==
[~2024-11-14] MED LIST changes: +GABA-1172 PO; -GABA-282 PO; +LIDO1ADH93 TD; -LIDO5DIS41 TD; +RIFA300C62 PO; -RIFA300C8 PO
== END ==
LOC: M SFHCCLAY 06:57
PROVIDERS: ATTEND Nurse Practitioner Family
DX: L02.91 Cutaneous abscess, unspecified (principal)